=== PATIENT | female | born 1950 | race Caucasian/White ===

== ENCOUNTER 2017-11-09 12:31 | Emergency (ER) | payer MEDICARE, BC ==
[2017-11-09 13:26] VITALS: BP 142/82
--- NOTE | 2017-11-09 14:09 | UC ---
Neck Pain HPI - HPI Summary HPI Summary: patient woke this morning with pain in the right side of her neck and intermittent tingling down her hand, she is morbildly obese, forward head posture, pain along the upper trap and scalenes. denies any facila droop, one side weakness or change in speech. - History of Current Complaint Hx Obtained From: Patient, Family/Structural Design Engineer ?: No Onset/Duration Of Injury/Symptoms: Hours Mechanism Of Injury: No Known Trauma Timing: Constant - radiating painneck ache Onset/Duration: Sudden Onset, Lasting Hours Severity: Moderate Pain Intensity: 4 Character: Sharp, Aching Aggravating Factors: Position, Movement Alleviating Factors: Position, Massage Associated Signs & Symptoms: Positive: Paresthesia <Flora Gayle - Last Filed: 11/09/17 14:14> <Isabelle Urena - Last Filed: 11/09/17 14:30> - History of Current Complaint Chief Complaint: UCGeneralIllness Stated Complaint: PAIN BEHIND (R) EAR/NECK, COUGH Time Seen by Provider: 11/09/17 13:18 - Allergies/Home Medications Allergies/Adverse Reactions: Allergies Allergy/AdvReac Type Severity Reaction Status Date / Time Penicillins Allergy Hives Verified 11/09/17 13:22 piroxicam [From Feldene] Allergy Blisters Verified 11/09/17 13:22 Home Medications: Home Medications Albuterol HFA INHALER* [Ventolin HFA Inhaler*] 1 puff INH Q4H PRN 11/09/17 [ History Confirmed 11/09/17] Allopurinol TAB* [Zyloprim 100 MG TAB*] 200 mg PO DAILY 11/09/17 [History Confirmed 11/09/17] Atorvastatin* [Lipitor*] 10 mg PO DAILY 11/09/17 [History Confirmed 11/09/17] Beclomethasone 80 MCG MDI(NF) [Qvar 80 MCG MDI(NF)] 2 puff INH DAILY 11/09/17 [ History Confirmed 11/09/17] Ferrous Sulfate TAB* 325 mg PO DAILY 11/09/17 [History Confirmed 11/09/17] Furosemide TAB* [Lasix TAB*] 40 mg PO DAILY 11/09/17 [History Confirmed 11/09/17 ] Gabapentin CAP(*) [Neurontin 100 mg CAP(*)] 100 mg PO BID 11/09/17 [History Confirmed 11/09/17] Nystatin CREAM* 1 applic TOPICAL TID 11/09/17 [History Confirmed 11/09/17] Pantoprazole TAB (NF) [Protonix TAB (NF)] 40 mg PO DAILY 11/09/17 [History Confirmed 11/09/17] Potassium Chlor TAB* [Klor Con ER TAB*] 10 meq PO DAILY 11/09/17 [History Confirmed 11/09/17] Spironolactone TAB* [Aldactone TAB*] 12.5 mg PO DAILY 11/09/17 [History Confirmed 11/09/17] Tiotropium CAP.INH* [Spiriva CAP.INH*] 2 cap.inh INH DAILY 11/09/17 [History Confirmed 11/09/17] amLODIPine TAB* [Norvasc 5 mg TAB*] 5 mg PO DAILY 11/09/17 [History Confirmed ] PMH/Surg Hx/FS Hx/Imm Hx Previously Healthy: Yes - Surgical History Surgical History: Yes Surgery Procedure, Year, and Place: stents. T&A. chad. appy. L carotid [place] coil. Kidney stone blasted. 2014 bypass. mitral valve repair - Family History Known Family History: Positive: Cardiac Disease, Hypertension - Social History Alcohol Use: Occasionally Substance Use Type: None Smoking Status (MU): Former Smoker Type: Cigarettes When Did the Patient Quit Smoking/Using Tobacco: 30 years ago - Immunization History Most Recent Influenza Vaccination: 2013 Most Recent Tetanus Shot: current (2009?) Most Recent Pneumonia Vaccination: current <Flora Gayle - Last Filed: 11/09/17 14:14> Review Of Systems Constitutional: Positive: Negative Skin: Positive: Negative Eyes: Positive: Negative ENT: Positive: Negative Respiratory: Positive: Negative Cardiovascular: Positive: Negative Gastrointestinal: Positive: Negative Genitourinary: Positive: Negative Musculoskeletal: Positive: Arthralgia, Decreased ROM, Myalgia Neurological: Positive: Negative Psychological: Positive: Negative All Other Systems Reviewed And Are Negative: Yes <Flora Gayle - Last Filed: 11/09/17 14:14> Physical Exam Triage Information Reviewed: Yes Appearance: Well-Appearing, Pain Distress, Obese Vital Signs: Initial Vital Signs Temp 98 F 11/09/17 13:20 Pulse 71 11/09/17 13:20 Resp 20 04/20/18 13:20 BP 142/82 11/09/17 13:20 Pulse Ox 99 11/09/17 13:20 Vital Signs Reviewed: Yes Eye Exam: Normal ENT Exam: Normal Dental Exam: Normal Neck: Positive: Tenderness @ - right side of neck musculature Respiratory Exam: Normal Respiratory: Positive: Chest non-tender, Lungs clear, Normal breath sounds Cardiovascular Exam: Normal Cardiovascular: Positive: RRR, No Murmur, Pulses Normal Abdominal Exam: Normal Abdomen Description: Positive: Nontender, No Organomegaly, Soft Bowel Sounds: Positive: Present Musculoskeletal Exam: Normal Musculoskeletal: Positive: Strength Intact, No Edema, ROM Limited @ - in neck rot, lat flx and ext Neurological Exam: Normal Neurological: Positive: Alert Psychological Exam: Normal Skin Exam: Normal <Flora Gayle - Last Filed: 11/09/17 14:14> Vital Signs: Initial Vital Signs Temp 98 F 11/09/17 13:20 Pulse 71 11/09/17 13:20 Resp 20 11/09/17 13:20 BP 142/82 11/09/17 13:20 Pulse Ox 99 11/09/17 13:20 <Isabelle Urena - Last Filed: 11/09/17 14:30> Neck Pain Course/Dx - Course Course Of Treatment: hx obtained, exam performed ,meds reviewed, ROM assessed, treated for cervical radicuopathy - Differential Dx/Diagnosis Differential Dx/HQI/PQRI: Cervical Fracture, Sprain, Strain, Torticollis Provider Diagnoses: torticollis. cervical radicuopathy <Flora Gayle - Last Filed: 11/09/17 14:14> Discharge - Sign-Out/Discharge Documenting (check all that apply): Discharge - Billing Disposition and Condition Condition: STABLE Disposition: HOME <Flora Gayle - Last Filed: 11/09/17 14:14> - Billing Disposition and Condition Condition: STABLE Disposition: HOME <Isabelle Urena - Last Filed: 11/09/17 14:30> - Discharge Plan Condition: Stable Disposition: HOME Patient Education Materials: Cervical Radiculopathy (ED) Referrals: Lorraine Brown MD [Primary Care Provider] - Additional Instructions: 1. warm pack to the neck, use the sling to rest the muscles of the shoulder and neck 2. I recommend follow up with massage, gentle stretching, tylenol and sleep poisitioning 3. Follow up with any increased weakness or pain is not managed with this line of treatment Attestation Statement User Type: Provider - I was available for consult. This patient was seen by the MARY. The patient was not presented to, seen by, or examined by me. -Ember <Isabelle Urena - Last Filed: 11/09/17 14:30>
== END 2017-11-09 14:42 | disposition home or self-care (01) ==
LOC: UCCORT 12:31
DX: M43.6 Torticollis (principal); M54.12 Radiculopathy, cervical region; Z87.891 Personal history of nicotine dependence; Z88.0 Allergy status to penicillin; Z88.8 Allergy status to other drugs, medicaments and biological substances
CPT/HCPCS: 99212; G0463

== ENCOUNTER 2019-09-18 10:30 | Emergency (ER) | payer MEDICARE, BC ==
--- OUTSIDE RECORDS SUMMARY | 2019-09-18 10:38 | XMS REPORT | Continuity of Care Document ---
:1950 External Reference #:[id number] Author Name JOSE ALEJANDRO Kieth (transmitted by agent of provider Nancy Ceja) Address [address] [place] [address] Care Team Providers Name Role Phone Lorraine Brown MD Care Team Information Com Writer [phone] Problems Active Problems Provider Date Allergic asthma without status asthmaticus [facility] Onset: Allergic rhinitis [facility] Onset: 11/06/2013 Allergic rhinitis due to pollen [facility] Onset: 11/06/2013 Acute maxillary sinusitis [facility] Onset: 11/06/2013 Uncomplicated moderate persistent asthma Manan Farr M.D. Onset: 03/29/2017 Cough Manan Farr M.D. Onset: 05/02/2018 Social History Type Date Description Comments Sex Unknown ETOH Use Currently consumes 1 glass of wine per alcohol day Tobacco Use Start: Unknown End: Patient is a former quit 26 years ago; Unknown smoker h/o tobacco x approx 25 years (3ppd at time of quitting). Recreational Drug Use Denies Drug Use Smoking Status Reviewed: 10/25/17 Patient is a former quit 26 years ago; smoker h/o tobacco x approx 25 years (3ppd at time of quitting). Allergies, Adverse Reactions, Alerts Active Allergies Reaction Severity Comments Date Feldene blisters 10/29/2007 Penicillin Urticaria 10/29/2007 Medications Active Medications SIG Qnty Indications Ordering Date Provider Prednisone 40mg for 3 days, 31tabs J45.51 Юлия 09/09/2019 10mg Tablets 30mg for 3 days, MELL DasilvaP-C 20 mg for 3 days, 10mg for 3 days and 5mg for 2 days Azithromycin 1 by mouth x 7 7tabs J45.51 Юлия 09/09/2019 500mg days MariseldrMELL stoneP-C Tablets Aerochamber Plus for use with mdi 2units Berta Dhaliwal, 09/04/2019 [employer] GAME DESIGNER/CREATIVE DIRECTOR-C Misc Advair HFA inhale two puffs 12gm Юлия 08/13/2019 by mouth twice a MELL DasilvaP-C 230-21mcg/Act Aerosol day Ipratropium [place] use with nebulizer 75ml Юлия 08/05/2019 am&pm ISA Dasilva-C 0.02% Solution Xolair inject 225mg every 6units Юлия 08/05/2019 75mg/0.5ML Soln 2 weeks ISA Dasilva-C Prefill Syringe Azelastine HCL [place] One [place] 30units Berta Dhaliwal, 05/27/2019 (Nasal) Into Each Nostril GAME DESIGNER/CREATIVE DIRECTOR-C 137mcg/[place] Once In The Solution Morning And Once AT Night Levalbuterol HCL use via nebulizer 30ml Юлия 04/04/2019 every 4 -6 hours ISA Dasilva-C 1.25mg/3ML Nebulizer for shortness of breath, cough or wheezing Epipen 2-Elvin use as directed 2units Юлия 07/30/2018 ISA Dasilva-C 0.3mg/0.3ML Solution Auto-Inject Cetirizine HCL 1 by mouth every 30tabs Jordana Maria, 08/28/2017 10mg day GAME DESIGNER/CREATIVE DIRECTOR-C Tablets Ventolin HFA 2 inhalations q4h 1units J45.40 Manan Farr, 10/15/2014 prn coughing or M.D. 108(90Base) mcg/Act wheezing Aerosol Fluticasone two sprays in each 1units Manan Farr, 06/10/2013 Propionate nostril once daily M.D. 50mcg/Act Suspension Levothyroxine Sodium 1 tab daily. Unknown 125mcg Tablets Singulair take 1 tablet by 30tabs Юлия 10mg Tablets mouth every day JOSE ALEJANDRO Dasilva needs annual Atorvastatin Calcium 1 every day Unknown Powder Aspirin Low Dose 1 every day Unknown 81mg Chewtabs Irbesartan 1 tab every day Unknown 75mg Tablets Klor-Con M10 1 tab every day Unknown 10Meq Tablets ER Pantoprazole Sodium 1 tab daily. Unknown 40mg Tablets DR Spironolactone 1/2 tablet daily Unknown 25mg Tablets Furosemide 1 tabs every day Unknown 80mg Tablets Spiriva Respimat 2 inhalations once 1units J45.40 Юлия daily JOSE ALEJANDRO Dasilva 2.5mcg/Act Aerosol Allopurinol once a day Unknown 300mg Tablets Medications Administered in Office Medication SIG Qnty Indications Ordering Provider Date Biologic Agent ISA Keith-C 09/09/2019 Administration Injection Therapeutic, Prophylactic Or Nancy Ceja M.D. 09/09/2019 Diagnostic Injection Subq/Im Injection Biologic Agent JOSE ALEJANDRO Khan 09/04/2019 Administration Injection Biologic Agent ISA Keith-Iggy 08/19/2019 Administration Injection Therapeutic, Prophylactic Or Nancy Ceja M.D. 08/19/2019 Diagnostic Injection Subq/Im Injection Biologic Agent ISA Keith-Iggy 08/05/2019 Administration Injection Therapeutic, Prophylactic Or Nancy Ceja M.D. 08/05/2019 Diagnostic Injection Subq/Im Injection Biologic Agent ISA Keith-C 07/09/2019 Administration Injection Therapeutic, Prophylactic Or ISA Keith-C 07/09/2019 Diagnostic Injection Subq/Im Injection Biologic Agent MELL KeithP-C 06/25/2019 Administration Injection Therapeutic, Prophylactic Or Юлияmatt Dasilva GAME DESIGNER/CREATIVE DIRECTOR-C 06/25/2019 Diagnostic Injection Subq/Im Injection Biologic Agent MELL KeithP-C 06/11/2019 Administration Injection Therapeutic, Prophylactic Or Юлия Susuich, GAME DESIGNER/CREATIVE DIRECTOR-C 06/11/2019 Diagnostic Injection Subq/Im Injection Biologic Agent Юлия Uldrich, GAME DESIGNER/CREATIVE DIRECTOR-C 05/28/2019 Administration Injection Therapeutic, Prophylactic Or Юлия Uldrich, GAME DESIGNER/CREATIVE DIRECTOR-C 05/28/2019 Diagnostic Injection Subq/Im Injection Biologic Agent Юлия Uldrich, GAME DESIGNER/CREATIVE DIRECTOR-C 05/14/2019 Administration Injection Therapeutic, Prophylactic Or Юлия Uldrich, GAME DESIGNER/CREATIVE DIRECTOR-C 05/14/2019 Diagnostic Injection Subq/Im Injection Biologic Agent Юлия Uldrich, GAME DESIGNER/CREATIVE DIRECTOR-C 04/30/2019 Administration Injection Therapeutic, Prophylactic Or Юлия Uldrich, GAME DESIGNER/CREATIVE DIRECTOR-C 04/30/2019 Diagnostic Injection Subq/Im Injection Therapeutic, Prophylactic Or Юлия Uldrich, GAME DESIGNER/CREATIVE DIRECTOR-C 04/16/2019 Diagnostic Injection Subq/Im Injection Biologic Agent Юлия Uldrich, GAME DESIGNER/CREATIVE DIRECTOR-C 04/02/2019 Administration Injection Therapeutic, Prophylactic Or Юлия Uldrich, GAME DESIGNER/CREATIVE DIRECTOR-C 04/02/2019 Diagnostic Injection Subq/Im Injection Biologic Agent Юлия Uldrich, GAME DESIGNER/CREATIVE DIRECTOR-C 03/12/2019 Administration Injection Therapeutic, Prophylactic Or Юлия Uldrich, GAME DESIGNER/CREATIVE DIRECTOR-C 03/12/2019 Diagnostic Injection Subq/Im Injection Biologic Agent Юлия Uldrich, GAME DESIGNER/CREATIVE DIRECTOR-C 02/19/2019 Administration Injection Therapeutic, Prophylactic Or Юлия Uldrich, GAME DESIGNER/CREATIVE DIRECTOR-C 02/19/2019 Diagnostic Injection Subq/Im Injection Biologic Agent Юлия Uldrich, GAME DESIGNER/CREATIVE DIRECTOR-C 02/05/2019 Administration Injection Therapeutic, Prophylactic Or Юлия Uldrich, GAME DESIGNER/CREATIVE DIRECTOR-C 02/05/2019 Diagnostic Injection Subq/Im Injection Biologic Agent Юлия Uldrich, GAME DESIGNER/CREATIVE DIRECTOR-C 01/22/2019 Administration Injection Therapeutic, Prophylactic Or Юлия Uldrich, GAME DESIGNER/CREATIVE DIRECTOR-C 01/22/2019 Diagnostic Injection Subq/Im Injection Therapeutic, Prophylactic Or Юлия Uldrich, GAME DESIGNER/CREATIVE DIRECTOR-C 01/08/2019 Diagnostic Injection Subq/Im Injection Biologic Agent Юлия Uldrich, GAME DESIGNER/CREATIVE DIRECTOR-C 12/25/2018 Administration Injection Therapeutic, Prophylactic Or Nancy Ceja M.D. 12/25/2018 Diagnostic Injection Subq/Im Injection Biologic Agent Юлия Uldrich, GAME DESIGNER/CREATIVE DIRECTOR-C 12/11/2018 Administration Injection Therapeutic, Prophylactic Or Юлия Uldrich, GAME DESIGNER/CREATIVE DIRECTOR-C 12/11/2018 Diagnostic Injection Subq/Im Injection Biologic Agent Юлия Uldrich, GAME DESIGNER/CREATIVE DIRECTOR-C 11/26/2018 Administration Injection Therapeutic, Prophylactic Or Юлия Uldrich, GAME DESIGNER/CREATIVE DIRECTOR-C 11/26/2018 Diagnostic Injection Subq/Im Injection Biologic Agent Юлия Uldrich, GAME DESIGNER/CREATIVE DIRECTOR-C 11/13/2018 Administration Injection Therapeutic, Prophylactic Or Юлия Uldrich, GAME DESIGNER/CREATIVE DIRECTOR-C 11/13/2018 Diagnostic Injection Subq/Im Injection Biologic Agent Юлия Uldrich, GAME DESIGNER/CREATIVE DIRECTOR-C 10/30/2018 Administration Injection Therapeutic, Prophylactic Or Юлия Uldrich, GAME DESIGNER/CREATIVE DIRECTOR-C 10/30/2018 Diagnostic Injection Subq/Im Injection Biologic Agent Юлия Uldrich, GAME DESIGNER/CREATIVE DIRECTOR-C 10/16/2018 Administration Injection Therapeutic, Prophylactic Or Юлия Uldrich, GAME DESIGNER/CREATIVE DIRECTOR-C 10/16/2018 Diagnostic Injection Subq/Im Injection Biologic Agent Ania Eric, GAME DESIGNER/CREATIVE DIRECTOR-C 10/02/2018 Administration Injection Therapeutic, Prophylactic Or Ania Eric, GAME DESIGNER/CREATIVE DIRECTOR-C 10/02/2018 Diagnostic Injection Subq/Im Injection Biologic Agent Юлия Uldrich, GAME DESIGNER/CREATIVE DIRECTOR-C 09/18/2018 Administration Injection Therapeutic, Prophylactic Or Юлия Uldrich, GAME DESIGNER/CREATIVE DIRECTOR-C 09/18/2018 Diagnostic Injection Subq/Im Injection Biologic Agent Юлия Uldrich, GAME DESIGNER/CREATIVE DIRECTOR-C 09/04/2018 Administration Injection Therapeutic, Prophylactic Or Manan Farr M.D. 09/04/2018 Diagnostic Injection Subq/Im Injection Biologic Agent Юлия Uldrich, GAME DESIGNER/CREATIVE DIRECTOR-C 08/21/2018 Administration Injection Therapeutic, Prophylactic Or Nancy Ceja M.D. 08/21/2018 Diagnostic Injection Subq/Im Injection Biologic Agent Юлия Uldrich, GAME DESIGNER/CREATIVE DIRECTOR-C 08/07/2018 Administration Injection Therapeutic, Prophylactic Or Юлия Uldrich, GAME DESIGNER/CREATIVE DIRECTOR-C 08/07/2018 Diagnostic Injection Subq/Im Injection Celestone/Cortisone Leeanne Theejenifermichael, 10/22/2014 [id number] 1 cc PH.D, RPA-C Injection Celestone/Cortisone Leeanne Theejenifermichael, 10/13/2014 [id number] 1 cc PH.D, RPA-C Injection Injection Donovan Myrna Holliday 12/10/2012 Injection Injection Allergy Injection 12/10/2012 Injection Injection Allergy Injection 11/26/2012 Injection Injection Allergy Injection 11/12/2012 Injection Injection Donovan Myrna Holliday 10/29/2012 Injection Injection Allergy Injection 10/29/2012 Injection Injection Donovan Myrna Holliday 10/15/2012 Injection Injection Allergy Injection 10/15/2012 Injection Injection Donovan Myrna Holliday 10/01/2012 Injection Injection Donovan Myrna Holliday 09/17/2012 Injection Injection Donovan Holliday M.D. 08/20/2012 Injection Injection Donovan Holliday M.D. 07/30/2012 Injection Injection Nancy Ceja M.D. 07/09/2012 Injection Injection Nancy Ceja M.D. 06/18/2012 Injection Injection Nancy Ceja M.D. 05/28/2012 Injection Injection Nancy Ceja M.D. 05/14/2012 Injection Injection Nancy Ceja M.D. 04/23/2012 Injection Injection Nancy Ceja M.D. 04/09/2012 Injection Injection Nancy Ceja M.D. 03/26/2012 Injection Injection Nancy Ceja M.D. 03/12/2012 Injection Injection Nancy Ceja M.D. 02/27/2012 Injection Injection Nancy Ceja M.D. 02/13/2012 Injection Injection Nancy Ceja M.D. 01/30/2012 Injection Injection Nancy Ceja M.D. 01/16/2012 Injection Injection Nancy Ceja M.D. 01/02/2012 Injection Injection Nancy Ceja M.D. 12/19/2011 Injection Injection Nancy Cjea M.D. 12/05/2011 Injection Injection Nancy Ceja M.D. 11/28/2011 Injection Injection Nancy Eduardo Rustyjhoan, CarloDRickie 11/14/2011 Injection Injection Nancy Eduardo Marcial, CarloDRickie 10/31/2011 Injection Injection Nancy Eduardo Marcial, CarloDRickie 10/17/2011 Injection Injection Nancy Eduardo Rustyjhoan, CarloDRickie 10/03/2011 Injection Injection Donovan Mg, M.DRickie 09/19/2011 Injection Injection Donovan Mg, CarloDRickie 09/05/2011 Injection Injection Manan Farr, CarloDRickie 07/06/2011 Injection Injection Donovan Mg, M.DRickie 06/22/2011 Injection Injection Donovan Mg, M.DRickie 06/08/2011 Injection Injection Donovan Mg, Alesha.DRickie 05/25/2011 Injection Injection Donovan Mg, M.DRickie 05/04/2011 Injection Injection Donovan Mg, M.DRickie 04/11/2011 Injection Injection Donovan Mg, Alesha.DRickie 03/28/2011 Injection Injection Donovan Mg, M.DRickie 03/16/2011 Injection Injection Donovan Mg, M.DRickie 03/02/2011 Injection Injection Donovan Mg, M.DRickie 02/09/2011 Injection Injection Donovan Mg, M.DRickie 01/17/2011 Injection Injection Donovan Mg, M.DRickie 12/20/2010 Injection Injection Donovan Mg, M.DRickie 12/06/2010 Injection Injection Donovan Mg, M.DRickie 11/22/2010 Injection Injection Donovan Mg, M.DRickie 11/10/2010 Injection Injection Donovan Mg, M.DRickie 10/25/2010 Injection Injection Donovan Mg, M.DRickie 10/11/2010 Injection Injection Donovan Mg, M.DRickie 09/20/2010 Injection Injection Donovan Mg, M.DRickie 08/23/2010 Injection Injection Donovan Mg, M.DRickie 07/26/2010 Injection Injection Donovan Mg, M.DRickie 06/28/2010 Injection Injection Donovan Mg, M.DRickie 05/31/2010 Injection Injection Donovan Mg, M.DRickie 05/03/2010 Injection Injection Donovan Mg, M.DRickie 04/19/2010 Injection Injection Donovan Mg, M.DRickie 04/05/2010 Injection Injection Donovan Mg, M.DRickie 03/22/2010 Injection Injection Donovan Mg, M.DRickie 03/01/2010 Injection Injection Nancy M Marcial, Myrna 02/15/2010 Injection Injection Donovan Mg, M.DRickie 02/01/2010 Injection Injection Donovan Mg, M.DRickie 01/18/2010 Injection Injection Donovan Mg, M.DRickie 01/04/2010 Injection Injection Donovan Mg, M.DRickie 12/21/2009 Injection Injection Donovan Mg, M.DRickie 12/09/2009 Injection Injection Donovan Mg, M.DRickei 11/23/2009 Injection Injection Donovan Mg, M.DRickie 11/09/2009 Injection Injection Donovan Mg, CarloDRickie 10/26/2009 Injection Injection Donovan Mg, Alesha.DRickie 10/12/2009 Injection Injection Donovan Mg, M.DRickie 09/28/2009 Injection Injection Donovan Mg, M.DRickie 09/14/2009 Injection Injection Nancy Ceja M.D. 08/24/2009 Injection Injection Christopher Mares, 08/12/2009 Injection M.D. Injection Donovan Mg, M.DRickie 07/29/2009 Injection Injection Donovan Mg, CarloDRickie 07/13/2009 Injection Injection Christopher Mares, 07/01/2009 Injection M.D. Injection Donovan Mg, M.DRickie 06/15/2009 Injection Injection Donovan Mg, M.DRickie 06/01/2009 Injection Injection Donovan Mg, M.DRickie 05/18/2009 Injection Injection Donovan Mg, M.DRickie 04/29/2009 Injection Injection Donovan Mg, M.DRickie 04/15/2009 Injection Injection Donovan Mg, M.DRickie 04/01/2009 Injection Injection Donovan Mg, M.DRickie 03/18/2009 Injection Injection Donovan Mg, M.DRickie 03/04/2009 Injection Injection Donovan Mg, Alesha.DRickie 02/18/2009 Injection Injection Donovan Mg, M.DRickie 02/04/2009 Injection Injection Donovan Mg, MRickieDRickie 01/21/2009 Injection Injection Christopher Mares, 01/07/2009 Injection M.DRickie Injection Donovan Mg, M.DRickie 12/24/2008 Injection Injection Donovan Mg, Alesha.DRickie 12/10/2008 Injection Injection Donovan Mg, M.DRickie 12/03/2008 Injection Injection Donovan Mg, M.DRickie 11/24/2008 Injection Injection Donovan Mg, M.DRickie 11/19/2008 Injection Injection Donovan Mg, M.DRickie 11/12/2008 Injection Injection Donovan Mg, CarloDRickie 11/03/2008 Injection Injection Donovan Mg, CarloDRickie 10/15/2008 Injection Injection Donovan Mg, Myrna 10/01/2008 Injection Injection Donovan Mg, CarloDRickie 09/17/2008 Injection Injection Donovan Mg, M.DRickie 09/03/2008 Injection Injection Donovan Mg, M.DRickie 08/20/2008 Injection Injection Donovan Mg, Alesha.DRickie 08/06/2008 Injection Injection Donovan Mg, Myrna 07/14/2008 Injection Injection Donovan Mg, Myrna 07/02/2008 Injection Injection Donovan Mg, Myrna 06/16/2008 Injection Injection Donovan Mg, Myrna 06/11/2008 Injection Injection Donovan Mg, M.DRickie 06/04/2008 Injection Injection Donovan Mg, M.DRickie 05/28/2008 Injection Injection Donovan Mg, M.DRickie 05/21/2008 Injection Injection Donovan Mg, M.DRickie 05/14/2008 Injection Injection Donovan Mg, MRickieDRickie 05/07/2008 Injection Injection Donovan Mg, Myrna 04/30/2008 Injection Injection Donovan Mg, CarloDRickie 04/23/2008 Injection Injection Donovan Mg, MRickieDRickie 04/16/2008 Injection Injection Donovan Mg, Myrna 04/09/2008 Injection Injection Donovan MgMyrna melo 04/02/2008 Injection Injection Donovan MgMyrna melo 03/26/2008 Injection Injection Donovan MgMyrna 03/19/2008 Injection Injection Donovan MgMyrna 03/12/2008 Injection Injection Donovan MgMyrna melo 03/05/2008 Injection Injection Donovan MgMyrna melo 02/27/2008 Injection Injection Donovan Gm, Myrna 02/20/2008 Injection Injection Donovan Mg, Myrna 02/13/2008 Injection Injection Doonvan MgMyrna melo 02/04/2008 Injection Injection Donovan MgMyrna melo 01/30/2008 Injection Injection Donovan Mg, Myrna 01/23/2008 Injection Injection Donovan MgMyrna melo 01/16/2008 Injection Injection Donovan MgMyrna melo 01/09/2008 Injection Injection Donovan MgMyrna melo 01/02/2008 Injection Injection Donovan MgMyrna melo 12/26/2007 Injection Injection Donovan MgMyrna melo 12/19/2007 Injection Injection Donovan MgMyrna melo 12/12/2007 Injection Injection Donovan Mg, Myrna 12/03/2007 Injection Injection Donovan MgMyrna melo 11/26/2007 Injection Injection Donovan MgMyrna melo 11/19/2007 Injection Immunizations CPT Code Status Date Vaccine Lot # 85108 Given 04/22/2013 Influenza Vaccine 69486 Given 07/23/2010 Pneumococcal Vaccine 44091 Given Unknown Pneumococcal Vaccine 34155 Given Unknown Influenza Vaccine 33744 Given Unknown Influenza Vaccine 14670 Given Unknown Influenza Vaccine 45239 Given Unknown Influenza Vaccine 07770 Given Unknown Influenza Vaccine Vital Signs Date Vital Result Comment 09/09/2019 1:28pm Height 65 inches 5'5" Weight 241.00 lb Weight 109.318 kg Respiratory Rate 18 /min Heart Rate 89 /min O2 % BldC Oximetry 97 % BP Systolic 135 mmHg BP Diastolic 66 mmHg Asthma Control Test 14 BMI (Body Mass Index) 40.1 kg/m2 09/04/2019 11:18am Height 65 inches 5'5" Weight 241.00 lb Weight 109.318 kg Respiratory Rate 16 /min Heart Rate 87 /min O2 % BldC Oximetry 95 % BP Systolic 135 mmHg BP Diastolic 64 mmHg Asthma Control Test 10 BMI (Body Mass Index) 40.1 kg/m2 Results Description No Information Available Procedures Date Code Description Status 09/09/2019 52926 Biologic Agent Administration Completed 09/09/2019 56702 Therapeutic, Prophylactic Or Diagnostic Injection Subq/Im Completed 09/04/2019 08937 Biologic Agent Administration Completed 09/04/2019 57986 Ippb Completed 08/19/2019 41527 Biologic Agent Administration Completed 08/19/2019 36126 Therapeutic, Prophylactic Or Diagnostic Injection Subq/Im Completed 08/05/2019 01262 Biologic Agent Administration Completed 08/05/2019 27187 Therapeutic, Prophylactic Or Diagnostic Injection Subq/Im Completed 08/05/2019 29921 Ippb Completed 07/09/2019 83781 Biologic Agent Administration Completed 07/09/2019 27920 Therapeutic, Prophylactic Or Diagnostic Injection Subq/Im Completed 06/25/2019 67965 Ippb Completed 06/25/2019 75368 Therapeutic, Prophylactic Or Diagnostic Injection Subq/Im Completed 06/25/2019 08747 Biologic Agent Administration Completed 06/11/2019 26669 Biologic Agent Administration Completed 06/11/2019 08416 Therapeutic, Prophylactic Or Diagnostic Injection Subq/Im Completed 05/28/2019 00085 Biologic Agent Administration Completed 05/28/2019 80576 Therapeutic, Prophylactic Or Diagnostic Injection Subq/Im Completed 05/14/2019 37742 Biologic Agent Administration Completed 05/14/2019 80695 Therapeutic, Prophylactic Or Diagnostic Injection Subq/Im Completed 04/30/2019 07613 Biologic Agent Administration Completed 04/30/2019 21772 Therapeutic, Prophylactic Or Diagnostic Injection Subq/Im Completed 04/16/2019 14930 Therapeutic, Prophylactic Or Diagnostic Injection Subq/Im Completed 04/02/2019 34042 Biologic Agent Administration Completed 04/02/2019 23599 Therapeutic, Prophylactic Or Diagnostic Injection Subq/Im Completed 03/12/2019 65968 Biologic Agent Administration Completed 03/12/2019 83862 Therapeutic, Prophylactic Or Diagnostic Injection Subq/Im Completed Medical Devices Description No Information Available Encounters Type Date Location Provider Dx Diagnosis Office Visit 03/12/2019 [facility] Юлияmatt Dasilva, J45.50 Severe persistent 11:20a GAME DESIGNER/CREATIVE DIRECTOR-C asthma, uncomplicated J30.1 Allergic rhinitis due to pollen J45.50 Severe persistent asthma, uncomplicated J30.2 Other seasonal allergic rhinitis J30.81 Allergic rhinitis due to animal (cat) (dog) hair and dander J30.1 Allergic rhinitis due to pollen J30.2 Other seasonal allergic rhinitis J30.81 Allergic rhinitis due to animal (cat) (dog) hair and dander J30.89 Other allergic rhinitis Assessments Date Code Description Provider 09/09/2019 J45.51 Severe persistent asthma with (acute) Nancy Ceja M.D. exacerbation 09/09/2019 J45.51 Severe persistent asthma with (acute) Юлия Mariseldrich, GAME DESIGNER/CREATIVE DIRECTOR -C exacerbation 09/09/2019 J30.81 Allergic rhinitis due to animal (cat) (dog) Nancy Ceja M.D. hair and dander 09/09/2019 J30.81 Allergic rhinitis due to animal (cat) (dog) Юлия Vidya, GAME DESIGNER/CREATIVE DIRECTOR-C hair and dander 09/09/2019 J30.89 Other allergic rhinitis Nancy Ceja M.D. 09/09/2019 J30.89 Other allergic rhinitis Юлия Vidya, GAME DESIGNER/CREATIVE DIRECTOR-C 09/09/2019 J30.1 Allergic rhinitis due to pollen Nancy Ceja M.D. 09/09/2019 J30.1 Allergic rhinitis due to pollen Юлияcristian Dasilva, GAME DESIGNER/CREATIVE DIRECTOR-C 09/04/2019 J45.51 Severe persistent asthma with (acute) Nancy Ceja M.D. exacerbation 09/04/2019 J45.51 Severe persistent asthma with (acute) ISA Khan-C exacerbation 09/04/2019 J20.9 Acute bronchitis, unspecified Berta Dhaliwal GAME DESIGNER/CREATIVE DIRECTOR-C 08/19/2019 J45.50 Severe persistent asthma, uncomplicated Nancy Ceja M.D. 08/19/2019 J45.50 Severe persistent asthma, uncomplicated Nancy Ceja M.D. 08/19/2019 J45.50 Severe persistent asthma, uncomplicated Юлия Vidya, GAME DESIGNER/CREATIVE DIRECTOR-C 08/19/2019 J30.2 Other seasonal allergic rhinitis Nancy Ceja M.D. 08/19/2019 J30.2 Other seasonal allergic rhinitis Юлия Uldrich, GAME DESIGNER/CREATIVE DIRECTOR-C 08/19/2019 J30.81 Allergic rhinitis due to animal (cat) (dog) Nancy Ceja M.D. hair and dander 08/19/2019 J30.81 Allergic rhinitis due to animal (cat) (dog) Юлия Uldrich, GAME DESIGNER/CREATIVE DIRECTOR-C hair and dander 08/19/2019 J30.89 Other allergic rhinitis Nancy Ceja M.D. 08/19/2019 J30.89 Other allergic rhinitis Юлия Uldrich, GAME DESIGNER/CREATIVE DIRECTOR-C 08/19/2019 J30.1 Allergic rhinitis due to pollen Юлия Uldrich, GAME DESIGNER/CREATIVE DIRECTOR-C 08/05/2019 J45.50 Severe persistent asthma, uncomplicated Nancy Ceja M.D. 08/05/2019 J45.50 Severe persistent asthma, uncomplicated Юлия Uldrich, GAME DESIGNER/CREATIVE DIRECTOR-C 08/05/2019 J30.2 Other seasonal allergic rhinitis Nancy Ceja M.D. 08/05/2019 J30.2 Other seasonal allergic rhinitis Юлия Uldrich, GAME DESIGNER/CREATIVE DIRECTOR-C 08/05/2019 J30.81 Allergic rhinitis due to animal (cat) (dog) Nancy Ceja M.D. hair and dander 08/05/2019 J30.81 Allergic rhinitis due to animal (cat) (dog) Юлия Uldrich, GAME DESIGNER/CREATIVE DIRECTOR-C hair and dander 08/05/2019 J30.89 Other allergic rhinitis Nancy Ceja M.D. 08/05/2019 J30.89 Other allergic rhinitis Юлия Uldrich, GAME DESIGNER/CREATIVE DIRECTOR-C 08/05/2019 J30.1 Allergic rhinitis due to pollen Юлия Uldrich, GAME DESIGNER/CREATIVE DIRECTOR-C 07/09/2019 J45.50 Severe persistent asthma, uncomplicated Юлия Uldrich, GAME DESIGNER/CREATIVE DIRECTOR-C 07/09/2019 J30.2 Other seasonal allergic rhinitis Nancy Ceja M.D. 07/09/2019 J30.2 Other seasonal allergic rhinitis Юлия Uldrich, GAME DESIGNER/CREATIVE DIRECTOR-C 07/09/2019 J30.81 Allergic rhinitis due to animal (cat) (dog) Nancy Ceja M.D. hair and dander 07/09/2019 J30.81 Allergic rhinitis due to animal (cat) (dog) Юлия Uldrich, GAME DESIGNER/CREATIVE DIRECTOR-C hair and dander 07/09/2019 J30.89 Other allergic rhinitis Nancy Ceja M.D. 07/09/2019 J30.89 Other allergic rhinitis Юлия Uldrich, GAME DESIGNER/CREATIVE DIRECTOR-C 07/09/2019 J30.1 Allergic rhinitis due to pollen Nancy Ceja M.D. 07/09/2019 J30.1 Allergic rhinitis due to pollen Юлия Uldrich, GAME DESIGNER/CREATIVE DIRECTOR-C 06/25/2019 J45.50 Severe persistent asthma, uncomplicated Юлия Uldrich, GAME DESIGNER/CREATIVE DIRECTOR-C 06/25/2019 J45.50 Severe persistent asthma, uncomplicated Nancy Ceja M.D. 06/25/2019 J30.2 Other seasonal allergic rhinitis Юлия Uldrich, GAME DESIGNER/CREATIVE DIRECTOR-C 06/25/2019 J45.50 Severe persistent asthma, uncomplicated Юлия Uldrich, GAME DESIGNER/CREATIVE DIRECTOR-C 06/25/2019 J30.81 Allergic rhinitis due to animal (cat) (dog) Юлия Uldrich, GAME DESIGNER/CREATIVE DIRECTOR-C hair and dander 06/25/2019 J30.2 Other seasonal allergic rhinitis Nancy Ceja M.D. 06/25/2019 J30.89 Other allergic rhinitis Юлия Uldrich, GAME DESIGNER/CREATIVE DIRECTOR-C 06/25/2019 J30.2 Other seasonal allergic rhinitis Юлия Uldrich, GAME DESIGNER/CREATIVE DIRECTOR-C 06/25/2019 J30.81 Allergic rhinitis due to animal (cat) (dog) Nancy Ceja M.D. hair and dander 06/25/2019 J30.81 Allergic rhinitis due to animal (cat) (dog) Юлия Uldrich, GAME DESIGNER/CREATIVE DIRECTOR-C hair and dander 06/25/2019 J30.89 Other allergic rhinitis Nancy Ceja M.D. 06/25/2019 J30.89 Other allergic rhinitis Юлия Uldrich, GAME DESIGNER/CREATIVE DIRECTOR-C 06/25/2019 J30.1 Allergic rhinitis due to pollen Юлия Uldrich, GAME DESIGNER/CREATIVE DIRECTOR-C 06/11/2019 J45.50 Severe persistent asthma, uncomplicated Юлия Uldrich, GAME DESIGNER/CREATIVE DIRECTOR-C 06/11/2019 J45.50 Severe persistent asthma, uncomplicated Nancy Ceja M.D. 06/11/2019 J45.50 Severe persistent asthma, uncomplicated Юлия Uldrich, GAME DESIGNER/CREATIVE DIRECTOR-C 06/11/2019 J30.2 Other seasonal allergic rhinitis Nancy Ceja M.D. 06/11/2019 J30.2 Other seasonal allergic rhinitis Юлия Uldrich, GAME DESIGNER/CREATIVE DIRECTOR-C 06/11/2019 J30.81 Allergic rhinitis due to animal (cat) (dog) Nancy Ceja M.D. hair and dander 06/11/2019 J30.81 Allergic rhinitis due to animal (cat) (dog) Юлия Uldrich, GAME DESIGNER/CREATIVE DIRECTOR-C hair and dander 06/11/2019 J30.89 Other allergic rhinitis Nancy Ceja M.D. 06/11/2019 J30.89 Other allergic rhinitis Юлия Uldrich, GAME DESIGNER/CREATIVE DIRECTOR-C 06/11/2019 J30.1 Allergic rhinitis due to pollen Юлия Uldrich, GAME DESIGNER/CREATIVE DIRECTOR-C 05/28/2019 J45.50 Severe persistent asthma, uncomplicated Юлия Uldrich, GAME DESIGNER/CREATIVE DIRECTOR-C 05/28/2019 J45.50 Severe persistent asthma, uncomplicated Nancy Ceja M.D. 05/28/2019 J45.50 Severe persistent asthma, uncomplicated Юлия Uldrich, GAME DESIGNER/CREATIVE DIRECTOR-C 05/28/2019 J30.2 Other seasonal allergic rhinitis Nancy Ceja M.D. 05/28/2019 J30.2 Other seasonal allergic rhinitis Юлия Uldrich, GAME DESIGNER/CREATIVE DIRECTOR-C 05/28/2019 J30.81 Allergic rhinitis due to animal (cat) (dog) Nancy Ceja M.D. hair and dander 05/28/2019 J30.81 Allergic rhinitis due to animal (cat) (dog) Юлия Uldrich, GAME DESIGNER/CREATIVE DIRECTOR-C hair and dander 05/28/2019 J30.89 Other allergic rhinitis Nancy Ceja M.D. 05/28/2019 J30.89 Other allergic rhinitis Юлия Uldrich, GAME DESIGNER/CREATIVE DIRECTOR-C 05/28/2019 J30.1 Allergic rhinitis due to pollen Юлия Uldrich, GAME DESIGNER/CREATIVE DIRECTOR-C 05/14/2019 J45.50 Severe persistent asthma, uncomplicated Юлия Uldrich, GAME DESIGNER/CREATIVE DIRECTOR-C 05/14/2019 J30.2 Other seasonal allergic rhinitis Юлия Uldrich, GAME DESIGNER/CREATIVE DIRECTOR-C 05/14/2019 J30.81 Allergic rhinitis due to animal (cat) (dog) Юлия Uldrich, GAME DESIGNER/CREATIVE DIRECTOR-C hair and dander 05/14/2019 J30.89 Other allergic rhinitis Юлия Uldrich, GAME DESIGNER/CREATIVE DIRECTOR-C 05/14/2019 J30.1 Allergic rhinitis due to pollen Юлия Uldrich, GAME DESIGNER/CREATIVE DIRECTOR-C 04/30/2019 J45.50 Severe persistent asthma, uncomplicated Юлия Uldrich, GAME DESIGNER/CREATIVE DIRECTOR-C 04/30/2019 J45.50 Severe persistent asthma, uncomplicated Nancy Ceja M.D. 04/30/2019 J45.50 Severe persistent asthma, uncomplicated Юлия Uldrich, GAME DESIGNER/CREATIVE DIRECTOR-C 04/30/2019 J30.2 Other seasonal allergic rhinitis Nancy Ceaj M.D. 04/30/2019 J30.2 Other seasonal allergic rhinitis Юлия Uldrich, GAME DESIGNER/CREATIVE DIRECTOR-C 04/30/2019 J30.81 Allergic rhinitis due to animal (cat) (dog) Nancy Ceja M.D. hair and dander 04/30/2019 J30.81 Allergic rhinitis due to animal (cat) (dog) Юлия Uldrich, GAME DESIGNER/CREATIVE DIRECTOR-C hair and dander 04/30/2019 J30.89 Other allergic rhinitis Nancy Ceja M.D. 04/30/2019 J30.89 Other allergic rhinitis Юлия Uldrich, GAME DESIGNER/CREATIVE DIRECTOR-C 04/16/2019 J45.50 Severe persistent asthma, uncomplicated Юлия Uldrich, GAME DESIGNER/CREATIVE DIRECTOR-C 04/16/2019 J45.50 Severe persistent asthma, uncomplicated Nancy Ceja M.D. 04/16/2019 J45.50 Severe persistent asthma, uncomplicated Юлия Uldrich, GAME DESIGNER/CREATIVE DIRECTOR-C 04/16/2019 J30.1 Allergic rhinitis due to pollen Nancy Ceja M.D. 04/16/2019 J30.1 Allergic rhinitis due to pollen Юлия Ulich, GAME DESIGNER/CREATIVE DIRECTOR-C 04/16/2019 J30.2 Other seasonal allergic rhinitis Nancy Ceja M.D. 04/16/2019 J30.2 Other seasonal allergic rhinitis Юлия Uldrich, GAME DESIGNER/CREATIVE DIRECTOR-C 04/16/2019 J30.81 Allergic rhinitis due to animal (cat) (dog) Nancy Ceja M.D. hair and dander 04/16/2019 J30.81 Allergic rhinitis due to animal (cat) (dog) Юлия Uldrich, [facility] hair and dander 04/16/2019 J30.89 Other allergic rhinitis Юлия Uldrich, GAME DESIGNER/CREATIVE DIRECTOR-C 04/02/2019 J45.50 Severe persistent asthma, uncomplicated Юлия Uldrich, GAME DESIGNER/CREATIVE DIRECTOR-C 04/02/2019 J45.50 Severe persistent asthma, uncomplicated Nancy Ceja M.D. 04/02/2019 J45.50 Severe persistent asthma, uncomplicated Юлия Uldrich, GAME DESIGNER/CREATIVE DIRECTOR-C 04/02/2019 J30.1 Allergic rhinitis due to pollen Nancy Ceja M.D. 04/02/2019 J30.1 Allergic rhinitis due to pollen Юлия Susuich, GAME DESIGNER/CREATIVE DIRECTOR-C 04/02/2019 J30.2 Other seasonal allergic rhinitis Nancy Ceja M.D. 04/02/2019 J30.2 Other seasonal allergic rhinitis Юлия Uldrich, GAME DESIGNER/CREATIVE DIRECTOR-C 04/02/2019 J30.81 Allergic rhinitis due to animal (cat) (dog) Nancy Ceja M.D. hair and dander 04/02/2019 J30.81 Allergic rhinitis due to animal (cat) (dog) Юлия Uldrich, [facility] hair and dander 04/02/2019 J30.89 Other allergic rhinitis Nancy Ceja M.D. 04/02/2019 J30.89 Other allergic rhinitis Юлия Uldrich, GAME DESIGNER/CREATIVE DIRECTOR-C 03/12/2019 J45.50 Severe persistent asthma, uncomplicated Юлия Uldrich, GAME DESIGNER/CREATIVE DIRECTOR-C 03/12/2019 J45.50 Severe persistent asthma, uncomplicated Nancy Ceja M.D. 03/12/2019 J30.1 Allergic rhinitis due to pollen Юлия Uldrich, GAME DESIGNER/CREATIVE DIRECTOR-C 03/12/2019 J45.50 Severe persistent asthma, uncomplicated Юлия Uldrich, GAME DESIGNER/CREATIVE DIRECTOR-C 03/12/2019 J30.2 Other seasonal allergic rhinitis Юлия Uldrich, GAME DESIGNER/CREATIVE DIRECTOR-C 03/12/2019 J30.1 Allergic rhinitis due to pollen Nancy Ceja M.D. 03/12/2019 J30.81 Allergic rhinitis due to animal (cat) (dog) Юлия Uldrich, GAME DESIGNER/CREATIVE DIRECTOR-C hair and dander 03/12/2019 J30.1 Allergic rhinitis due to pollen Юиля Uldrich, GAME DESIGNER/CREATIVE DIRECTOR-C 03/12/2019 J30.2 Other seasonal allergic rhinitis Nancy Ceja M.D. 03/12/2019 J30.2 Other seasonal allergic rhinitis Юлия Uldrich, GAME DESIGNER/CREATIVE DIRECTOR-C 03/12/2019 J30.81 Allergic rhinitis due to animal (cat) (dog) Nancy Ceja M.D. hair and dander 03/12/2019 J30.81 Allergic rhinitis due to animal (cat) (dog) Юлия Mariseldrich, GAME DESIGNER/CREATIVE DIRECTOR-C hair and dander 03/12/2019 J30.89 Other allergic rhinitis Юлия Uldrich, GAME DESIGNER/CREATIVE DIRECTOR-C Plan of Treatment Future Appointment(s):10/21/2019 11:20 am - Юлия Vidya, GAME DESIGNER/CREATIVE DIRECTOR-C at [facility]10/07/2019 11:20 am - Юлия Uldrich, GAME DESIGNER/CREATIVE DIRECTOR-C at [facility]09/23/2019 11:20 am - Юлия Susuich, GAME DESIGNER/CREATIVE DIRECTOR-C at [facility] Functional Status Description No Information Available Mental Status Description No Information Available Referrals Description No Information Available
--- OUTSIDE RECORDS SUMMARY | 2019-09-18 10:38 | XMS REPORT | Continuity of Care Document ---
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 Advair HFA inhale two puffs 12gm Юлия 08/13/2019 by mouth twice a ISA Dasilva-C 230-21mcg/Act Aerosol day Ipratropium [place] use with nebulizer 75ml Юлия 08/05/2019 am&pm ISA Dasilva-C 0.02% Solution Xolair inject 225mg every 6units Юлия 08/05/2019 75mg/0.5ML Soln 2 weeks ISA Dasilva-Iggy Prefill Syringe Azelastine HCL [place] One [place] 30units Berta Dhaliwal, 05/27/2019 (Nasal) Into Each Nostril OUTSIDE SALES ACCOUNT EXECUTIVE-C 137mcg/[place] Once In The Solution Morning And Once AT Night Levalbuterol HCL use via nebulizer 30ml Юлия 04/04/2019 every 4 -6 hours ISA Dasilva-C 1.25mg/3ML Nebulizer for shortness of breath, cough or wheezing Epipen 2-Elvin use as directed 2unЮлия 07/30/2018 ISA Dasilva-C 0.3mg/0.3ML Solution Auto-Inject Cetirizine HCL 1 by mouth every 30tabs Jordana Maria, 08/28/2017 10mg day OUTSIDE SALES ACCOUNT EXECUTIVE-C Tablets Ventolin HFA 2 inhalations q4h 1units J45.40 Manan Farr, 10/15/2014 prn coughing or M.D. 108(90Base) mcg/Act wheezing Aerosol Fluticasone two sprays in each 1units Manan Farr, 06/10/2013 Propionate nostril once daily M.D. 50mcg/Act Suspension Levothyroxine Sodium 1 tab daily. Unknown 125mcg Tablets Singulair take 1 tablet by 30tabs Юлия 10mg Tablets mouth every day ISA Dasilva-Iggy needs annual Atorvastatin Calcium 1 every day [...] Qnty Indications Ordering Provider Date Biologic Agent JOSE ALEJANDRO Khan 09/04/2019 Administration Injection Biologic Agent ISA Keith-C 08/19/2019 Administration Injection Therapeutic, Prophylactic Or Nancy Ceja M.D. 08/19/2019 Diagnostic Injection Subq/Im Injection Biologic Agent ISA Keith-C 08/05/2019 Administration Injection Therapeutic, Prophylactic Or Nancy Ceja M.D. 08/05/2019 Diagnostic Injection Subq/Im Injection Biologic Agent MELL KeithP-C 07/09/2019 Administration Injection Therapeutic, Prophylactic Or Юлия ISA Dasilva-C 07/09/2019 Diagnostic Injection Subq/Im Injection Biologic Agent MELL KeithP-C 06/25/2019 Administration Injection Therapeutic, Prophylactic Or Юлия Ulbharat OUTSIDE SALES ACCOUNT EXECUTIVE-C 06/25/2019 Diagnostic Injection Subq/Im Injection Biologic Agent Юлия Vidya OUTSIDE SALES ACCOUNT EXECUTIVE-C 06/11/2019 Administration Injection Therapeutic, Prophylactic Or Юлия Ulbharat, OUTSIDE SALES ACCOUNT EXECUTIVE-C 06/11/2019 Diagnostic Injection Subq/Im Injection Biologic Agent Юлия Ulbharat, OUTSIDE SALES ACCOUNT EXECUTIVE-C 05/28/2019 Administration Injection Therapeutic, Prophylactic Or Юлия Ulbharat, OUTSIDE SALES ACCOUNT EXECUTIVE-C 05/28/2019 Diagnostic Injection Subq/Im Injection Biologic Agent Юлия Uldrich, OUTSIDE SALES ACCOUNT EXECUTIVE-C 05/14/2019 Administration Injection Therapeutic, Prophylactic Or Юлия Uldrich, OUTSIDE SALES ACCOUNT EXECUTIVE-C 05/14/2019 Diagnostic Injection Subq/Im Injection Biologic Agent Юлия Uldrich, OUTSIDE SALES ACCOUNT EXECUTIVE-C 04/30/2019 Administration Injection Therapeutic, Prophylactic Or Юлия Uldrich, OUTSIDE SALES ACCOUNT EXECUTIVE-C 04/30/2019 Diagnostic Injection Subq/Im Injection Therapeutic, Prophylactic Or Юлия Uldrich, OUTSIDE SALES ACCOUNT EXECUTIVE-C 04/16/2019 Diagnostic Injection Subq/Im Injection Biologic Agent Юлия Uldrich, OUTSIDE SALES ACCOUNT EXECUTIVE-C 04/02/2019 Administration Injection Therapeutic, Prophylactic Or Юлия Uldrich, OUTSIDE SALES ACCOUNT EXECUTIVE-C 04/02/2019 Diagnostic Injection Subq/Im Injection Biologic Agent Юлия Uldrich, OUTSIDE SALES ACCOUNT EXECUTIVE-C 03/12/2019 Administration Injection Therapeutic, Prophylactic Or Юлия Uldrich, OUTSIDE SALES ACCOUNT EXECUTIVE-C 03/12/2019 Diagnostic Injection Subq/Im Injection Biologic Agent Юлия Uldrich, OUTSIDE SALES ACCOUNT EXECUTIVE-C 02/19/2019 Administration Injection Therapeutic, Prophylactic Or Юлия Uldrich, OUTSIDE SALES ACCOUNT EXECUTIVE-C 02/19/2019 Diagnostic Injection Subq/Im Injection Biologic Agent Юлия Uldrich, OUTSIDE SALES ACCOUNT EXECUTIVE-C 02/05/2019 Administration Injection Therapeutic, Prophylactic Or Юлия Uldrich, OUTSIDE SALES ACCOUNT EXECUTIVE-C 02/05/2019 Diagnostic Injection Subq/Im Injection Biologic Agent Юлия Uldrich, OUTSIDE SALES ACCOUNT EXECUTIVE-C 01/22/2019 Administration Injection Therapeutic, Prophylactic Or Юлия Uldrich, OUTSIDE SALES ACCOUNT EXECUTIVE-C 01/22/2019 Diagnostic Injection Subq/Im Injection Therapeutic, Prophylactic Or Юлия Uldrich, OUTSIDE SALES ACCOUNT EXECUTIVE-C 01/08/2019 Diagnostic Injection Subq/Im Injection Biologic Agent Юлия Uldrich, OUTSIDE SALES ACCOUNT EXECUTIVE-C 12/25/2018 Administration Injection Therapeutic, Prophylactic Or Nancy Ceja M.D. 12/25/2018 Diagnostic Injection Subq/Im Injection Biologic Agent Юлия Uldrich, OUTSIDE SALES ACCOUNT EXECUTIVE-C 12/11/2018 Administration Injection Therapeutic, Prophylactic Or Юлия Uldrich, OUTSIDE SALES ACCOUNT EXECUTIVE-C 12/11/2018 Diagnostic Injection Subq/Im Injection Biologic Agent Юлия Uldrich, OUTSIDE SALES ACCOUNT EXECUTIVE-C 11/26/2018 Administration Injection Therapeutic, Prophylactic Or Юлия Uldrich, OUTSIDE SALES ACCOUNT EXECUTIVE-C 11/26/2018 Diagnostic Injection Subq/Im Injection Biologic Agent Юлия Uldrich, OUTSIDE SALES ACCOUNT EXECUTIVE-C 11/13/2018 Administration Injection Therapeutic, Prophylactic Or Юлия Uldrich, OUTSIDE SALES ACCOUNT EXECUTIVE-C 11/13/2018 Diagnostic Injection Subq/Im Injection Biologic Agent Юлия Uldrich, OUTSIDE SALES ACCOUNT EXECUTIVE-C 10/30/2018 Administration Injection Therapeutic, Prophylactic Or Юлия Uldrich, OUTSIDE SALES ACCOUNT EXECUTIVE-C 10/30/2018 Diagnostic Injection Subq/Im Injection Biologic Agent Юлия Uldrich, OUTSIDE SALES ACCOUNT EXECUTIVE-C 10/16/2018 Administration Injection Therapeutic, Prophylactic Or Юлия Uldrich, OUTSIDE SALES ACCOUNT EXECUTIVE-C 10/16/2018 Diagnostic Injection Subq/Im Injection Biologic Agent Ania Eric, OUTSIDE SALES ACCOUNT EXECUTIVE-C 10/02/2018 Administration Injection Therapeutic, Prophylactic Or Ania Eric, OUTSIDE SALES ACCOUNT EXECUTIVE-C 10/02/2018 Diagnostic Injection Subq/Im Injection Biologic Agent Юлия Uldrich, OUTSIDE SALES ACCOUNT EXECUTIVE-C 09/18/2018 Administration Injection Therapeutic, Prophylactic Or Юлия Uldrich, OUTSIDE SALES ACCOUNT EXECUTIVE-C 09/18/2018 Diagnostic Injection Subq/Im Injection Biologic Agent Юлия Uldrich, OUTSIDE SALES ACCOUNT EXECUTIVE-C 09/04/2018 Administration Injection Therapeutic, Prophylactic Or Manan Farr M.D. 09/04/2018 Diagnostic Injection Subq/Im Injection Biologic Agent Юлия Uldrich, OUTSIDE SALES ACCOUNT EXECUTIVE-C 08/21/2018 Administration Injection Therapeutic, Prophylactic Or Nancy Ceja M.D. 08/21/2018 Diagnostic Injection Subq/Im Injection Biologic Agent Юлия Uldrich, OUTSIDE SALES ACCOUNT EXECUTIVE-C 08/07/2018 Administration Injection Therapeutic, Prophylactic Or Юлия Uldrich, OUTSIDE SALES ACCOUNT EXECUTIVE-C 08/07/2018 Diagnostic Injection Subq/Im Injection Celestone/Cortisone Leeanne Salamanca, 10/22/2014 [id number] 1 cc PH.D, RPA-C Injection Celestone/Cortisone Leeanne Salamanca, 10/13/2014 [id number] 1 cc PH.D, RPA-C Injection Injection Donovan Mg, M.D. 12/10/2012 Injection Injection Allergy Injection 12/10/2012 Injection Injection Allergy Injection 11/26/2012 Injection Injection Allergy Injection 11/12/2012 Injection Injection Donovan Mg, Myrna 10/29/2012 Injection Injection Allergy Injection 10/29/2012 Injection Injection Donovan Carlo HollidayDRickie 10/15/2012 Injection Injection Allergy Injection 10/15/2012 Injection Injection Donovan Mg, Myrna 10/01/2012 Injection Injection Donovan Mg, CarloDRickie 09/17/2012 Injection Injection Donovan Holliday M.D. 08/20/2012 [...] Nancy Ceja M.D. 12/19/2011 Injection Injection Nancy Ceja M.D. 12/05/2011 Injection Injection Nancy Ceja M.D. 11/28/2011 Injection Injection Nancy Ceja M.D. 11/14/2011 Injection Injection Nancy Ceja M.D. 10/31/2011 Injection Injection Nancy Ceja M.D. 10/17/2011 Injection Injection Nancy Ceja M.D. 10/03/2011 Injection Injection Donovan Mg, M.DRickie 09/19/2011 Injection Injection Donovan Mg, M.DRickie 09/05/2011 Injection Injection Manandavid Farr, Myrna 07/06/2011 Injection Injection Donovan Mg, M.DRickie 06/22/2011 Injection Injection Donoavn Mg, M.DRickie 06/08/2011 Injection Injection Donovan Mg, M.DRickie 05/25/2011 Injection Injection Donovan Mg, M.DRickie 05/04/2011 Injection Injection Donovan Mg, M.DRickie 04/11/2011 Injection Injection Donovan Mg, M.DRickie 03/28/2011 Injection Injection Donovan Mg, M.DRickie 03/16/2011 [...] Mg, M.DRickie 03/01/2010 Injection Injection Nancy M Myrna Ceja 02/15/2010 Injection Injection Donovan Mg, MRickieDRickie 02/01/2010 Injection Injection Donovan Mg, M.DRickie 01/18/2010 Injection Injection Donovan Mg, M.DRickie 01/04/2010 Injection Injection Donovan Mg, M.DRickie 12/21/2009 Injection Injection Donovan Mg, M.DRickie 12/09/2009 Injection Injection Donovan Mg, M.DRickie 11/23/2009 Injection Injection Donovan Mg, M.DRickie 11/09/2009 Injection Injection Donovan Mg, M.DRickie 10/26/2009 Injection Injection Donovan Mg, M.DRickie 10/12/2009 Injection Injection Donovan Mg, M.DRickie 09/28/2009 Injection Injection Donovan Mg, M.DRickie 09/14/2009 Injection Injection Nancy Ceja M.D. 08/24/2009 Injection Injection Christopher Mares, 08/12/2009 Injection M.D. Injection Donovan Mg, M.DRickie 07/29/2009 Injection Injection Donovan Mg, M.DRickie 07/13/2009 Injection Injection Christopher Mares, 07/01/2009 Injection M.D. Injection Donovan Mg, M.DRickie 06/15/2009 Injection Injection Donovan Mg, M.DRickie 06/01/2009 Injection Injection Donovan Mg, M.DRickie 05/18/2009 Injection Injection Donovan Mg, M.DRickie 04/29/2009 Injection Injection Donovan Mg, M.DRickie 04/15/2009 Injection Injection Donovan Mg, M.DRickie 04/01/2009 Injection Injection Donovan Mg, M.DRickie 03/18/2009 Injection Injection Donovan Mg, M.DRickie 03/04/2009 Injection Injection Donovan Mg, M.DRickie 02/18/2009 Injection Injection Donovan Mg, M.DRickie 02/04/2009 Injection Injection Donovan Mg, M.DRickie 01/21/2009 Injection Injection Christopher Mares, 01/07/2009 Injection M.D. Injection Donovan Mg, MRickieDRickie 12/24/2008 Injection Injection Donovan Mg, M.DRickie 12/10/2008 Injection Injection Donovan Mg, M.DRickie 12/03/2008 Injection Injection Donovan Mg, M.DRickie 11/24/2008 Injection Injection Donovan Mg, M.DRickie 11/19/2008 Injection Injection Donovan Mg, M.DRickie 11/12/2008 Injection Injection Donovan Mg, M.DRickie 11/03/2008 Injection Injection Donovan Mg, M.DRickie 10/15/2008 Injection Injection Donovan Mg, M.DRickie 10/01/2008 Injection Injection Donovan Mg, M.DRickie 09/17/2008 Injection Injection Donovan Mg, Alesha.DRickie 09/03/2008 Injection Injection Donovan Mg, M.DRickie 08/20/2008 Injection Injection Donovan Mg, Alesha.DRickie 08/06/2008 Injection Injection Donovan Mg, Myrna 07/14/2008 Injection Injection Donovan Mg, Alesha.DRickie 07/02/2008 Injection Injection Donovan Mg, M.DRickie 06/16/2008 Injection Injection Donovan Mg, CarloDRickie 06/11/2008 Injection Injection Donovan Mg, CarloDRickie 06/04/2008 Injection Injection Donovan Mg, M.DRickie 05/28/2008 Injection Injection Donovan Mg, M.DRickie 05/21/2008 Injection Injection Donovan Mg, CarloDRickie 05/14/2008 Injection Injection Donovan Mg, Alesha.DRickie 05/07/2008 Injection Injection Donovan Mg, M.DRickie 04/30/2008 Injection Injection Donovan Mg, M.DRickie 04/23/2008 Injection Injection Donovan Mg, M.DRickie 04/16/2008 Injection Injection Donovan Mg, M.DRickie 04/09/2008 Injection Injection Donovan Mg, M.DRickie 04/02/2008 Injection Injection Donovan Mg, M.DRickie 03/26/2008 Injection Injection Donovan Mg, CarloDRickie 03/19/2008 Injection Injection Donovan Mg, MRickieDRickie 03/12/2008 Injection Injection Donovan MgMyrna melo 03/05/2008 Injection Injection Donovan MgMyrna melo 02/27/2008 Injection Injection Donovan MgMyrna melo 02/20/2008 Injection Injection Donovan Mg, Myrna 02/13/2008 Injection Injection Donovan MgMyrna melo 02/04/2008 Injection Injection Donovan MgMyrna melo 01/30/2008 Injection Injection Donovan MgMyrna melo 01/23/2008 Injection Injection Donovan Mg, Myrna 01/16/2008 Injection Injection Donovan Mg, Myrna 01/09/2008 Injection Injection Donovan Myrna Holliday 01/02/2008 Injection Injection Donovan Myrna Holliday 12/26/2007 Injection Injection Donovan Myrna Holliday 12/19/2007 Injection Injection Donovan Myrna Holliday 12/12/2007 Injection Injection Donovan Myrna Holliday 12/03/2007 Injection Injection Donovan Myrna Holliday 11/26/2007 Injection Injection Donovan Myrna Holliday 11/19/2007 Injection Immunizations CPT Code Status Date Vaccine Lot # 73019 Given 04/22/2013 Influenza Vaccine 58677 Given 07/23/2010 Pneumococcal Vaccine 03516 Given Unknown Pneumococcal Vaccine 14302 Given Unknown Influenza Vaccine 81625 Given Unknown Influenza Vaccine 82446 Given Unknown Influenza Vaccine 24120 Given Unknown Influenza Vaccine 68108 Given Unknown Influenza Vaccine Vital Signs Date Vital Result Comment 09/04/2019 11:18am Height 65 inches 5'5" Weight 241.00 lb Weight 109.318 kg Respiratory Rate 16 /min Heart Rate 87 /min O2 % BldC Oximetry 95 % BP Systolic 135 mmHg BP Diastolic 64 mmHg Asthma Control Test 10 BMI (Body Mass Index) 40.1 kg/m2 08/19/2019 11:28am Height 65 inches 5'5" Weight 241.00 lb Weight 109.318 kg Respiratory Rate 16 /min Heart Rate 88 /min O2 % BldC Oximetry 98 % BP Systolic 132 mmHg BP Diastolic 62 mmHg BMI (Body Mass Index) 40.1 kg/m2 Results Description No Information Available Procedures Date Code Description Status 09/04/2019 95315 Biologic Agent Administration Completed 08/19/2019 15937 Biologic Agent Administration Completed 08/19/2019 07079 Therapeutic, Prophylactic Or Diagnostic Injection Subq/Im Completed 08/05/2019 27768 Biologic Agent Administration Completed 08/05/2019 67712 Therapeutic, Prophylactic Or Diagnostic Injection Subq/Im Completed 08/05/2019 45754 Ippb Completed 07/09/2019 16964 Biologic Agent Administration Completed 07/09/2019 30833 Therapeutic, Prophylactic Or Diagnostic Injection Subq/Im Completed 06/25/2019 55917 Biologic Agent Administration Completed 06/25/2019 08389 Therapeutic, Prophylactic Or Diagnostic Injection Subq/Im Completed 06/25/2019 80510 Ippb Completed 06/11/2019 02601 Therapeutic, Prophylactic Or Diagnostic Injection Subq/Im Completed 06/11/2019 49114 Biologic Agent Administration Completed 05/28/2019 70352 Biologic Agent Administration Completed 05/28/2019 98700 Therapeutic, Prophylactic Or Diagnostic Injection Subq/Im Completed 05/14/2019 19969 Biologic Agent Administration Completed 05/14/2019 56232 Therapeutic, Prophylactic Or Diagnostic Injection Subq/Im Completed 04/30/2019 15900 Biologic Agent Administration Completed 04/30/2019 81907 Therapeutic, Prophylactic Or Diagnostic Injection Subq/Im Completed 04/16/2019 78279 Therapeutic, Prophylactic Or Diagnostic Injection Subq/Im Completed 04/02/2019 80481 Biologic Agent Administration Completed 04/02/2019 62814 Therapeutic, Prophylactic Or Diagnostic Injection Subq/Im Completed 03/12/2019 55575 Biologic Agent Administration Completed 03/12/2019 20245 Therapeutic, Prophylactic Or Diagnostic Injection Subq/Im Completed Medical Devices Description No Information Available Encounters Type Date Location Provider Dx Diagnosis Office Visit 03/12/2019 [facility] Юлия Dasilva, J45.50 Severe persistent 11:20a OUTSIDE SALES ACCOUNT EXECUTIVE-C asthma, uncomplicated J30.1 Allergic rhinitis due to pollen J45.50 Severe persistent asthma, uncomplicated J30.2 Other seasonal allergic rhinitis J30.81 Allergic rhinitis due to animal (cat) (dog) hair and dander J30.1 Allergic rhinitis due to pollen J30.2 Other seasonal allergic rhinitis J30.81 Allergic rhinitis due to animal (cat) (dog) hair and dander J30.89 Other allergic rhinitis Assessments Date Code Description Provider 09/04/2019 J45.51 Severe persistent asthma with (acute) ISA Khan-C exacerbation 09/04/2019 J20.9 Acute bronchitis, unspecified ISA Khan-C 08/19/2019 J45.50 Severe persistent asthma, uncomplicated Nancy Ceja M.D. 08/19/2019 J45.50 Severe persistent asthma, uncomplicated Nancy Ceja M.D. 08/19/2019 J45.50 Severe persistent asthma, uncomplicated Юлия Uldrich, OUTSIDE SALES ACCOUNT EXECUTIVE-C 08/19/2019 J30.2 Other seasonal allergic rhinitis Nancy Ceja M.D. 08/19/2019 J30.2 Other seasonal allergic rhinitis Юлия Uldrich, OUTSIDE SALES ACCOUNT EXECUTIVE-C 08/19/2019 J30.81 Allergic rhinitis due to animal (cat) (dog) Nancy Ceja M.D. hair and dander 08/19/2019 J30.81 Allergic rhinitis due to animal (cat) (dog) Юлия Uldrich, OUTSIDE SALES ACCOUNT EXECUTIVE-C hair and dander 08/19/2019 J30.89 Other allergic rhinitis Nancy Ceja M.D. 08/19/2019 J30.89 Other allergic rhinitis Юлия Uldrich, OUTSIDE SALES ACCOUNT EXECUTIVE-C 08/19/2019 J30.1 Allergic rhinitis due to pollen Юлия Uldrich, OUTSIDE SALES ACCOUNT EXECUTIVE-C 08/05/2019 J45.50 Severe persistent asthma, uncomplicated Nancy Ceja M.D. 08/05/2019 J45.50 Severe persistent asthma, uncomplicated Юлия Uldrich, OUTSIDE SALES ACCOUNT EXECUTIVE-C 08/05/2019 J30.2 Other seasonal allergic rhinitis Nancy Ceja M.D. 08/05/2019 J30.2 Other seasonal allergic rhinitis Юлия Uldrich, OUTSIDE SALES ACCOUNT EXECUTIVE-C 08/05/2019 J30.81 Allergic rhinitis due to animal (cat) (dog) Nancy Ceja M.D. hair and dander 08/05/2019 J30.81 Allergic rhinitis due to animal (cat) (dog) Юлия Uldrich, OUTSIDE SALES ACCOUNT EXECUTIVE-C hair and dander 08/05/2019 J30.89 Other allergic rhinitis Nancy Ceja M.D. 08/05/2019 J30.89 Other allergic rhinitis Юлия Uldrich, OUTSIDE SALES ACCOUNT EXECUTIVE-C 08/05/2019 J30.1 Allergic rhinitis due to pollen Юлия Uldrich, OUTSIDE SALES ACCOUNT EXECUTIVE-C 07/09/2019 J45.50 Severe persistent asthma, uncomplicated Юлия Uldrich, OUTSIDE SALES ACCOUNT EXECUTIVE-C 07/09/2019 J30.2 Other seasonal allergic rhinitis Nancy Ceja M.D. 07/09/2019 J30.2 Other seasonal allergic rhinitis Юлия Uldrich, OUTSIDE SALES ACCOUNT EXECUTIVE-C 07/09/2019 J30.81 Allergic rhinitis due to animal (cat) (dog) Nancy Ceja M.D. hair and dander 07/09/2019 J30.81 Allergic rhinitis due to animal (cat) (dog) Юлия Uldrich, OUTSIDE SALES ACCOUNT EXECUTIVE-C hair and dander 07/09/2019 J30.89 Other allergic rhinitis Nancy Ceja M.D. 07/09/2019 J30.89 Other allergic rhinitis Юлия Uldrich, OUTSIDE SALES ACCOUNT EXECUTIVE-C 07/09/2019 J30.1 Allergic rhinitis due to pollen Nancy Ceja M.D. 07/09/2019 J30.1 Allergic rhinitis due to pollen Юлия Uldrich, OUTSIDE SALES ACCOUNT EXECUTIVE-C 06/25/2019 J45.50 Severe persistent asthma, uncomplicated Юлия Uldrich, OUTSIDE SALES ACCOUNT EXECUTIVE-C 06/25/2019 J45.50 Severe persistent asthma, uncomplicated Nancy Ceja M.D. 06/25/2019 J30.2 Other seasonal allergic rhinitis Юлия Uldrich, OUTSIDE SALES ACCOUNT EXECUTIVE-C 06/25/2019 J45.50 Severe persistent asthma, uncomplicated Юлия Uldrich, OUTSIDE SALES ACCOUNT EXECUTIVE-C 06/25/2019 J30.81 Allergic rhinitis due to animal (cat) (dog) Юлия Uldrich, OUTSIDE SALES ACCOUNT EXECUTIVE-C hair and dander 06/25/2019 J30.2 Other seasonal allergic rhinitis Nancy Ceja M.D. 06/25/2019 J30.89 Other allergic rhinitis Юлия Uldrich, OUTSIDE SALES ACCOUNT EXECUTIVE-C 06/25/2019 J30.2 Other seasonal allergic rhinitis Юлия Uldrich, OUTSIDE SALES ACCOUNT EXECUTIVE-C 06/25/2019 J30.81 Allergic rhinitis due to animal (cat) (dog) Nancy Ceja M.D. hair and dander 06/25/2019 J30.81 Allergic rhinitis due to animal (cat) (dog) Юлия Uldrich, OUTSIDE SALES ACCOUNT EXECUTIVE-C hair and dander 06/25/2019 J30.89 Other allergic rhinitis Nancy Ceja M.D. 06/25/2019 J30.89 Other allergic rhinitis Юлия Uldrich, OUTSIDE SALES ACCOUNT EXECUTIVE-C 06/25/2019 J30.1 Allergic rhinitis due to pollen Юлия Uldrich, OUTSIDE SALES ACCOUNT EXECUTIVE-C 06/11/2019 J45.50 Severe persistent asthma, uncomplicated Юлия Uldrich, OUTSIDE SALES ACCOUNT EXECUTIVE-C 06/11/2019 J45.50 Severe persistent asthma, uncomplicated Nancy Ceja M.D. 06/11/2019 J45.50 Severe persistent asthma, uncomplicated Юлия Uldrich, OUTSIDE SALES ACCOUNT EXECUTIVE-C 06/11/2019 J30.2 Other seasonal allergic rhinitis Nancy Ceja M.D. 06/11/2019 J30.2 Other seasonal allergic rhinitis Юлия Uldrich, OUTSIDE SALES ACCOUNT EXECUTIVE-C 06/11/2019 J30.81 Allergic rhinitis due to animal (cat) (dog) Nancy Ceja M.D. hair and dander 06/11/2019 J30.81 Allergic rhinitis due to animal (cat) (dog) Юлия Uldrich, OUTSIDE SALES ACCOUNT EXECUTIVE-C hair and dander 06/11/2019 J30.89 Other allergic rhinitis Nancy Ceja M.D. 06/11/2019 J30.89 Other allergic rhinitis Юлия Uldrich, OUTSIDE SALES ACCOUNT EXECUTIVE-C 06/11/2019 J30.1 Allergic rhinitis due to pollen Юлия Uldrich, OUTSIDE SALES ACCOUNT EXECUTIVE-C 05/28/2019 J45.50 Severe persistent asthma, uncomplicated Юлия Uldrich, OUTSIDE SALES ACCOUNT EXECUTIVE-C 05/28/2019 J45.50 Severe persistent asthma, uncomplicated Nancy Ceja M.D. 05/28/2019 J45.50 Severe persistent asthma, uncomplicated Юлия Uldrich, OUTSIDE SALES ACCOUNT EXECUTIVE-C 05/28/2019 J30.2 Other seasonal allergic rhinitis Nancy Ceja M.D. 05/28/2019 J30.2 Other seasonal allergic rhinitis Юлия Uldrich, OUTSIDE SALES ACCOUNT EXECUTIVE-C 05/28/2019 J30.81 Allergic rhinitis due to animal (cat) (dog) Nancy Ceja M.D. hair and dander 05/28/2019 J30.81 Allergic rhinitis due to animal (cat) (dog) Юлия Uldrich, OUTSIDE SALES ACCOUNT EXECUTIVE-C hair and dander 05/28/2019 J30.89 Other allergic rhinitis Nancy Ceja M.D. 05/28/2019 J30.89 Other allergic rhinitis Юлия Uldrich, OUTSIDE SALES ACCOUNT EXECUTIVE-C 05/28/2019 J30.1 Allergic rhinitis due to pollen Юлия Uldrich, OUTSIDE SALES ACCOUNT EXECUTIVE-C 05/14/2019 J45.50 Severe persistent asthma, uncomplicated Юлия Uldrich, OUTSIDE SALES ACCOUNT EXECUTIVE-C 05/14/2019 J30.2 Other seasonal allergic rhinitis Юлия Uldrich, OUTSIDE SALES ACCOUNT EXECUTIVE-C 05/14/2019 J30.81 Allergic rhinitis due to animal (cat) (dog) Юлия Uldrich, OUTSIDE SALES ACCOUNT EXECUTIVE-C hair and dander 05/14/2019 J30.89 Other allergic rhinitis Юлия Uldrich, OUTSIDE SALES ACCOUNT EXECUTIVE-C 05/14/2019 J30.1 Allergic rhinitis due to pollen Юлия Uldrich, OUTSIDE SALES ACCOUNT EXECUTIVE-C 04/30/2019 J45.50 Severe persistent asthma, uncomplicated Юлия Uldrich, OUTSIDE SALES ACCOUNT EXECUTIVE-C 04/30/2019 J45.50 Severe persistent asthma, uncomplicated Nancy Ceja M.D. 04/30/2019 J45.50 Severe persistent asthma, uncomplicated Юлия Uldrich, OUTSIDE SALES ACCOUNT EXECUTIVE-C 04/30/2019 J30.2 Other seasonal allergic rhinitis Nancy Ceja M.D. 04/30/2019 J30.2 Other seasonal allergic rhinitis Юлия Uldrich, OUTSIDE SALES ACCOUNT EXECUTIVE-C 04/30/2019 J30.81 Allergic rhinitis due to animal (cat) (dog) Nancy Ceja M.D. hair and dander 04/30/2019 J30.81 Allergic rhinitis due to animal (cat) (dog) Юлия Uldrich, OUTSIDE SALES ACCOUNT EXECUTIVE-C hair and dander 04/30/2019 J30.89 Other allergic rhinitis Nancy Ceja M.D. 04/30/2019 J30.89 Other allergic rhinitis Юлия Uldrich, OUTSIDE SALES ACCOUNT EXECUTIVE-C 04/16/2019 J45.50 Severe persistent asthma, uncomplicated Юлия Uldrich, OUTSIDE SALES ACCOUNT EXECUTIVE-C 04/16/2019 J45.50 Severe persistent asthma, uncomplicated Nancy Ceja M.D. 04/16/2019 J45.50 Severe persistent asthma, uncomplicated Юлия Uldrich, OUTSIDE SALES ACCOUNT EXECUTIVE-C 04/16/2019 J30.1 Allergic rhinitis due to pollen Nancy Ceja M.D. 04/16/2019 J30.1 Allergic rhinitis due to pollen Юлия Uldrich, OUTSIDE SALES ACCOUNT EXECUTIVE-C 04/16/2019 J30.2 Other seasonal allergic rhinitis Nancy Ceja M.D. 04/16/2019 J30.2 Other seasonal allergic rhinitis Юлия Uldrich, OUTSIDE SALES ACCOUNT EXECUTIVE-C 04/16/2019 J30.81 Allergic rhinitis due to animal (cat) (dog) Nancy Ceja M.D. hair and dander 04/16/2019 J30.81 Allergic rhinitis due to animal (cat) (dog) Юлия Uldrich, OUTSIDE SALES ACCOUNT EXECUTIVE-C hair and dander 04/16/2019 J30.89 Other allergic rhinitis Юлия Uldrich, OUTSIDE SALES ACCOUNT EXECUTIVE-C 04/02/2019 J45.50 Severe persistent asthma, uncomplicated Юлия Uldrich, OUTSIDE SALES ACCOUNT EXECUTIVE-C 04/02/2019 J45.50 Severe persistent asthma, uncomplicated Nancy Ceja M.D. 04/02/2019 J45.50 Severe persistent asthma, uncomplicated Юлия Uldrich, OUTSIDE SALES ACCOUNT EXECUTIVE-C 04/02/2019 J30.1 Allergic rhinitis due to pollen Nancy Ceja M.D. 04/02/2019 J30.1 Allergic rhinitis due to pollen Юлия Ulich, OUTSIDE SALES ACCOUNT EXECUTIVE-C 04/02/2019 J30.2 Other seasonal allergic rhinitis Nancy Ceja M.D. 04/02/2019 J30.2 Other seasonal allergic rhinitis Юлия Uldrich, OUTSIDE SALES ACCOUNT EXECUTIVE-C 04/02/2019 J30.81 Allergic rhinitis due to animal (cat) (dog) Nancy Ceja M.D. hair and dander 04/02/2019 J30.81 Allergic rhinitis due to animal (cat) (dog) Юлия Uldrich, OUTSIDE SALES ACCOUNT EXECUTIVE-C hair and dander 04/02/2019 J30.89 Other allergic rhinitis Nancy Ceja M.D. 04/02/2019 J30.89 Other allergic rhinitis Юлия Uldrich, OUTSIDE SALES ACCOUNT EXECUTIVE-C 03/12/2019 J45.50 Severe persistent asthma, uncomplicated Юлия Uldrich, OUTSIDE SALES ACCOUNT EXECUTIVE-C 03/12/2019 J45.50 Severe persistent asthma, uncomplicated Nancy Ceja M.D. 03/12/2019 J30.1 Allergic rhinitis due to pollen Юлия Uldrich, OUTSIDE SALES ACCOUNT EXECUTIVE-C 03/12/2019 J45.50 Severe persistent asthma, uncomplicated Юлия Uldrich, OUTSIDE SALES ACCOUNT EXECUTIVE-C 03/12/2019 J30.2 Other seasonal allergic rhinitis Юлия Uldrich, OUTSIDE SALES ACCOUNT EXECUTIVE-C 03/12/2019 J30.1 Allergic rhinitis due to pollen Nancy Ceja M.D. 03/12/2019 J30.81 Allergic rhinitis due to animal (cat) (dog) Юлия Uldrich, OUTSIDE SALES ACCOUNT EXECUTIVE-C hair and dander 03/12/2019 J30.1 Allergic rhinitis due to pollen Юлия Uldrich, OUTSIDE SALES ACCOUNT EXECUTIVE-C 03/12/2019 J30.2 Other seasonal allergic rhinitis Nancy Ceja M.D. 03/12/2019 J30.2 Other seasonal allergic rhinitis Юлия Uldrich, OUTSIDE SALES ACCOUNT EXECUTIVE-C 03/12/2019 J30.81 Allergic rhinitis due to animal (cat) (dog) Nancy Ceja M.D. hair and dander 03/12/2019 J30.81 Allergic rhinitis due to animal (cat) (dog) Юлия Uldrich, OUTSIDE SALES ACCOUNT EXECUTIVE-C hair and dander 03/12/2019 J30.89 Other allergic rhinitis Юлия Uldrich, OUTSIDE SALES ACCOUNT EXECUTIVE-C Plan of Treatment Future Appointment(s):09/09/2019 1:20 pm - Юлия Dasilva, OUTSIDE SALES ACCOUNT EXECUTIVE-C at [facility]09/04/2019 - ISA Khan-[id number] Severe persistent asthma with ( acute) [id number] Acute bronchitis, unspecifiedFollow up:2019Recommendations:Will hold Xolair today Start Azithromycin 250 mg take 2 tabs today, then one tab daily x 4 days Start Prednisone 20mg take 2 tabs daily x 5 days. Take with food May choose to take 20mg twice a day Jesenia IPPB now Use Levalbuterol routinely every 4-6 hours for a week and continue all meds as prscribed: Advair HFA 230-21 mcg/Act inhale two puffs by mouth twice a day Ipratropium [place] 0.02 % use with nebulizer am&pm Xolair 75 mg/ 0.5ml inject 225mg every 2 weeks Azelastine HCL (Nasal) 137 mcg/spray spray one spray into each nostril once in the morning and once AT night LevalbuterolHCL 1.25 mg/3ml use via nebulizer every 4 -6 hours for shortness of breath, cough or wheezing Epipen 2-Elvin 0.3 mg/0.3ml use as directed Cetirizine HCL 10 mg 1 by mouth every day Ventolin HFA 108(90 Base) mcg/Act 2 inhalations q4h prn coughing or wheezing Fluticasone Propionate 50 mcg/Act two sprays in each nostril once daily Singulair 10 mg take 1 tablet by mouth every day needs annual Spiriva Respimat 2.5 mcg/Act 2 inhalations once daily Use spacer for MDI inhalers- Instruction/demonstration given Call office or go to ED if condition worsens. F/U next Sunday with Nel Cash NP Functional Status Description No Information Available Mental Status Description No Information Available Referrals Description No Information Available
--- OUTSIDE RECORDS SUMMARY | 2019-09-18 10:38 | XMS REPORT | Continuity of Care Document ---
:1950 Author Name [employer]ole [employer]itter, System Address Unavailable Unavailable , Care Team Providers Name Role Phone Stephanie BAUTISTA, Lorraine Unavailable Unavailable Bishnu Elias DO Unavailable Estella BAUTISTA, Ray Unavailable Luz BAUTISTA, Shaw Unavailable Rafia Lanza DO Unavailable Derek Huang MD Unavailable Marcial BAUTISTA, Nancy Eduardo Unavailable Celi MSN, NPC, Joy Unavailable More LRT, Bereket Unavailable Unavailable Zia FOOT ROENTGENOLOGIST, Jazmin Unavailable Unavailable Adela COOLING TOWER OPERATOR, Carroll Unavailable Unavailable Jose FOOT ROENTGENOLOGIST, Kacey Unavailable Unavailable CHANNELING MACHINE OPERATOR Preload, CHANNELING MACHINE OPERATOR Unavailable Unavailable Arya FOOT ROENTGENOLOGIST, Mitali Unavailable Unavailable Maldonado FOOT ROENTGENOLOGIST, Naila Unavailable Unavailable Unavailable Unavailable Problems ALLERGIC RHINITIS (J30.9) (477.9) Celi, MSN, NPC Joy ASTHMA (Renamed from AIRWAY HYPERREACTIVITY) (J45.909) (493.90) Celi, MSN, NPC Joy Prognosis: patient presents in follow up. hx ACOS and sleep apnea. has been stable on current therapy. still taking additional ICS, qvar at noon, with samples. spirometry is without obstruction and Feno is normal. denies any recent symptoms or exacerbations. compliant with cpap nightly and reports benefit. our impressions are unchanged. she will attempt to hold the qvar and restart if needed. continue cpap night ly. encouraged weight loss efforts. RTO 6 months and prn. plan of care approved by Dr. 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 reports increased allergy symptoms lately leading to exacerbation. has been on oral steroids x2 with improvement. didn't tolerate step down th erapy after September 2018 when she left with samples of lower doses for ICS and LAMA. remains on cpap nightly with benefit. has lost additional weight with diet change, wants to lose more. reflux has been fine. spirometry has reduced FVC and small airway disease. feno is normal. our impressions are noted. continue current therapy including cpap. avoid triggers. weight loss encouraged. she will call with problems. RTO 6 months with tests and prn. plan of care approved by Dr. Bishnu Elias as of 31-Mar-2019 CHRONIC KIDNEY DISEASE (N18.9) (585.9) ROMELIA Alatorre NPC Jillian CORONARY HEART DISEASE (I25.10) (414.9) ROMELIA Alatorre NPC Jillian DM (DIABETES MELLITUS), TYPE 2 (E11.9) (250.00) ROMELIA Alatorre NPC Jillian GASTROESOPHAGEAL REFLUX DISEASE (K21.9) (530.81) ROMELIA Alatorre NPC Jillian HEART MURMUR (R01.1) (785.2) ROMELIA Alatorre NPC Jillian HYPERLIPIDEMIA (Renamed from HLD (HYPERLIPIDEMIA)) (E78.5) (272.4) ROMELIA Alatorre NPC Jillian HYPERTENSION (I10) (401.9) ROMELIA Alatorre NPC Jillian OBESITY (Renamed from OBESE) (E66.9) (278.00) ROMELIA Alatorre NPC Jillian OBSTRUCTIVE SLEEP APNEA (G47.33) (327.23) ROMELIA Alatorre NPC Jillian Comments : severe AHI 49/hr, LS 73% PLEURAL EFFUSION, LEFT (J90) (511.9) Onset: Mar-2014 Comments: after CABG, ROMELIA Alatorre NPC Jillian s/p TAP Allergies and Adverse Reactions Feldene *ANALGESICS - ANTI-INFLAMMATORY* (Allergy) Comments: BLISTERS Latex (Allergy) Penicillins (Allergy) Reaction: Rash Medications Albuterol Sulfate (2.5 MG/3ML) 0.083% Inhalation Nebulization Solution; 1 (one ) Nebulized Soln four times daily, as needed for 30 days Ordered: 08-May-2017 Start: 08-May-2017 Quantity: 2 {Box} ROMELIA Alatorre, TRAE Hamilton Comments: Medication taken as needed. Refills: 2 ALLOPURINOL, 100MG (Oral Tablet); 2 daily (100 MG) Astelin 137 MCG/SPRAY Nasal Solution; 1 each nare two times daily (137 MCG/SPRAY) ATORVASTATIN CALCIUM, 10MG (Oral Tablet); 1 daily (10 MG) AVAPRO, 75MG (Oral Tablet); 1 daily (75 MG) Dulera 200-5 MCG/ACT Inhalation Aerosol; 2 Puff two times daily for 30 days Ordered: 31-Mar-2019 Start: 31-Mar-2019 Quantity: 1 {Inhaler} ROMELIA Alatorre NPC Jillian Refills: 11 FLONASE, 50MCG/ACT (Nasal Suspension); 1 (one) Shannon two times daily, each nostril for 30 days Ordered: 30-Dec-2015 Start: 30-Dec-2015 Quantity: 1 {Shannon} ROMELIA Alatorre NPC Jillian Refills: 11 KLOR-CON 10, 10MEQ (Oral Tablet Extended Release); 1 daily (10 MEQ) Lasix 80 MG Oral Tablet; 1 two times daily (80 MG) Levothyroxine Sodium 125 MCG Oral Capsule; 1 daily (125 MCG) PANTOPRAZOLE SODIUM, 40MG (Oral Tablet Delayed Release); 1 two times daily (40 MG) Singulair 10 MG Oral Tablet; 1 Tablet daily for 90 days Ordered: 14-Aug-2018 Start: 14-Aug-2018 Quantity: 90 {Tablet} ROMELIA Alatorre NPC Jillian Refills: 3 SPIRIVA RESPIMAT, 2.5mcg (Inhalation Aerosol Breath Activated) (Free Text); 2 Puff daily for 30 days Ordered: 20-Sep-2018 Start: 20-Sep-2018 Quantity: 1 {Inhaler} ROMELIA Alatorre NPC Jillian Refills: 11 Spironolactone 25 MG Oral Tablet; 1 daily (25 MG) Ventolin HFA 108 (90 Base) MCG/ACT Inhalation Aerosol Solution; 2 (two) Puff four times daily as needed for 30 days Ordered: 05-Feb-2018 Start: 05-Feb-2018 Quantity: 1 {Inhaler} ROMELIA Alatorre NPC Jillian Comments: Medication taken as needed. Refills: 5 Xolair 150 MG Subcutaneous Comments: asthma & allergy Solution Reconstituted; every assoc two weeks (150 MG) Xyzal 5 MG Oral Tablet; 1 (one) Tablet daily for 30 days Ordered: 2016 Start: 15-Jan-2017 Quantity: 30 {Tablet} ROMELAI Alatorre NPC Jillian Refills: 11 ALENDRONATE SODIUM, 70MG (Oral End: 17-Oct-2011 Tablet); weekly (70 MG) Status: Inactive ALVESCO, 160MCG/ACT (Inhalation Aerosol Solution); 2 (two) Puff(s) Puff(s) two times daily for 30 days Ordered: 27-Apr-2014 Start: 19-Dec-2013 End: 2013 Quantity: 1 {Inhaler} ROMELIA Alatorre NPC Jillian Status: Inactive Refills: 3 AMLODIPINE BESYLATE, 5MG (Oral Status: Inactive Tablet); 1 daily (5 MG) Astepro 0.15 % Nasal Solution; 1 Solution daily for 30 days Ordered: 2016 Start: 30-Dec-2015 End: 20-Apr-2017 Quantity: 1 {Shannon} ROMELIA Alatorre NPC Jillian Status: Inactive Refills: 11 Dispense as Written CARVEDILOL, 6.25MG (Oral Status: Inactive Tablet); Daily (6.25 MG) CPAP ( Device) (Free Text); at End: 17-Oct-2011 bedtime Status: Inactive Comments: +17 CPAP PRESSURE CHANGE (327.23) ( Device) (Free Text); 1 Device change pressure to +14 cm for 0 days Ordered: 22-Apr-2013 Start: 17-Oct-2011 End: 22-Apr-2013 Quantity: 1 {Device} ROMELIA Alatorre NPC Jillian Status: Inactive Refills: 0 CPAP SUPPLIES AND MASK (327.23) ( Device) (Free Text); 1 Device as needed for 365 days Ordered: 18-Apr-2012 Start: 18-Apr-2012 End: 18-Apr-2013 Refills: 0 ROMELIA Alatorre, NPC Joy Status: Inactive Comments: Medication taken as needed. CPAP UNIT (327.23) ( Device) Status: Inactive (Free Text); auto-titating Comments: sona unit at bedtime Gabapentin 100 MG Oral Capsule; Status: Inactive 1 two times daily (100 MG) LEVOCETIRIZINE DIHYDROCHLORIDE, Status: Inactive 5MG (Oral Tablet); 1 daily (5 MG) METFORMIN HCL, 850MG (Oral Status: Inactive Tablet); two times daily (850 MG) NASONEX, 50MCG/ACT (Nasal Status: Inactive Suspension); daily (50 MCG/ACT) NEXIUM, 40MG (Oral Capsule Status: Inactive Delayed Release); daily (40 MG) PATADAY, 0.2% (Ophthalmic Status: Inactive Solution); UAD (0.2 %) PATANOL, 0.1% (Ophthalmic End: 17-Oct-2011 Solution); as needed (0.1 %) Status: Inactive Comments: Medication taken as needed. PLAVIX, 75MG (Oral Tablet); Status: Inactive Daily (75 MG) Qvar 80 MCG/ACT Inhalation End: 05-Feb-2018 Aerosol Solution; 2 daily (80 Status: Inactive MCG/ACT) VITAMIN D (ERGOCALCIFEROL), End: 17-Oct-2011 [id number] (Oral Capsule); Status: Inactive weekly (48955 UNIT) ZETIA, 10MG (Oral Tablet); Status: Inactive daily (10 MG) ALENDRONATE SODIUM, 35MG (Oral End: 22-Apr-2013 Tablet); weekly (35 MG) Status: Discontinued ALVESCO, 160MCG/ACT (Inhalation End: 17-Oct-2011 Aerosol Solution); 2 puffs two Status: Discontinued times daily (160 MCG/ACT) HYDROCHLOROTHIAZIDE, 12.5MG End: 20-Jan-2014 (Oral Capsule); 2 daily (12.5 Status: Discontinued MG) NASONEX, 50MCG/ACT (Nasal End: 19-Dec-2013 Suspension); 2 sprays each Status: Discontinued nostril daily (50 MCG/ACT) OMEPRAZOLE, 20MG (Oral Capsule End: 17-Oct-2011 Delayed Release); daily (20 Status: Discontinued MG) PROVENTIL HFA, 108 (90 Base)MCG/ACT (Inhalation Aerosol Solution); 2 (two) Puff(s) four times daily, as needed for 0 days Ordered: 20-Jan-2014 Start: Apr-2013 End: 20-Jan-2014 Quantity: 1 {Inhaler(s)} SHARMILA Garcia Status: Discontinued Refills: 1 Comments: Medication taken as needed. SEREVENT DISKUS, 50MCG/DOSE End: 17-Oct-2011 (Inhalation Aerosol Powder Status: Discontinued Breath Activated); two times daily (50 MCG/DOSE) Procedures EXHALED GAS NITRIC OXIDE MEASUREMENT Status: Completed 31-Mar-2019 (MOLES/VOLUME) (85773) EXHALED GAS NITRIC OXIDE MEASUREMENT Status: Completed 20-Sep-2018 (MOLES/VOLUME) (33799) RESPIRATORY FLOW VOLUME LOOP (36437) Status: Completed 05-Feb-2018 AIRFLOW RESISTANCE MEASUREMENT: PULM FUNCT Status: Completed 31-Jul-2017 TEST OSCILLOMETRY (03347) TOTAL VITAL CAPACITY (90259) Status: Completed 31-Jul-2017 TOTAL BODY PLETHYSMOGRAPHY: AIRWAY CLOSING Status: Completed 31-Jul-2017 VOLUME MEASUREMENT: PULM FUNCT TST PLETHYSMOGRAP (81150) RESPIRATORY FLOW VOLUME LOOP (19876) Status: Completed 31-Jul-2017 THORACIC GAS VOLUME: AIRWAY CLOSING VOLUME Status: Completed 31-Jul-2017 MEASUREMENT: PULM FUNCTION TEST BY GAS (39758) DLCO (CARBON MONOXIDE DIFFUSING CAPACITY) Status: Completed 31-Jul-2017 (45529) PRE AND POST (73191) Status: Completed 31-Jul-2017 REST/ EXERCISE OXIMETRY (13108) Status: Completed 06-Jun-2017 RESPIRATORY FLOW VOLUME LOOP (76476) Status: Completed 06-Jun-2017 TOTAL VITAL CAPACITY (53531) Status: Completed 20-Apr-2017 TOTAL BODY PLETHYSMOGRAPHY (84262) Status: Completed 20-Apr-2017 TGV THORACIC GAS VOLUME: AIRWAY CLOSING Status: Completed 20-Apr-2017 VOLUME MEASUREMENT: PULM FUNCTION TEST BY GAS (43301) RESPIRATORY FLOW VOLUME LOOP (78200) Status: Completed 20-Apr-2017 DLCO (CARBON MONOXIDE DIFFUSING CAPACITY) Status: Completed 20-Apr-2017 (85162) AIRFLOW RESISTANCE MEASUREMENT: PULM FUNCT Status: Completed 20-Apr-2017 TEST OSCILLOMETRY (24452) PRE AND POST (27610) Status: Completed 20-Apr-2017 RESPIRATORY FLOW VOLUME LOOP (39447) Status: Completed 05-Jul-2016 PRE AND POST (51769) Status: Completed 05-Jul-2016 AIRFLOW RESISTANCE MEASUREMENT: PULM FUNCT Status: Completed 30-Dec-2015 TEST OSCILLOMETRY (96897) TOTAL VITAL CAPACITY (54322) Status: Completed 30-Dec-2015 TOTAL BODY PLETHYSMOGRAPHY: AIRWAY CLOSING Status: Completed 30-Dec-2015 VOLUME MEASUREMENT: PULM FUNCT TST PLETHYSMOGRAP (07937) RESPIRATORY FLOW VOLUME LOOP (40240) Status: Completed 30-Dec-2015 THORACIC GAS VOLUME: AIRWAY CLOSING VOLUME Status: Completed 30-Dec-2015 MEASUREMENT: PULM FUNCTION TEST BY GAS (48036) DLCO (CARBON MONOXIDE DIFFUSING CAPACITY) Status: Completed 30-Dec-2015 (42057) PRE AND POST (02307) Status: Completed 30-Dec-2015 SIMPLE PFT: BASELINE PULMONARY FUNCTION Status: Completed 28-May-2015 TEST (PFT) (57432) RESPIRATORY FLOW VOLUME LOOP (99393) Status: Completed 28-May-2015 RESPIRATORY FLOW VOLUME LOOP (75424) Status: Completed 27-Oct-2014 PRE AND POST W/ RT (88673) Status: Completed 27-Oct-2014 RESPIRATORY FLOW VOLUME LOOP (18104) Status: Completed 27-Apr-2014 PRE AND POST (51624) Status: Completed 27-Apr-2014 REST/EXERCISE OXIMETRY (21966) Status: Completed 19-Dec-2013 ACT: ASSESSMENT OF DISEASE: ASTHMA Status: Cancelled 19-Dec-2013 SYMPTOMS EVALUATE (1005F) RESPIRATORY FLOW VOLUME LOOP (34340) Status: Completed 19-Dec-2013 PRE AND POST (03064) Status: Completed 19-Dec-2013 PRE AND POST (83916) Status: Completed 18-Apr-2012 EXERCISE OXIMETRY (56729) Status: Completed 18-Apr-2012 RESPIRATORY FLOW VOLUME LOOP (66242) Status: Completed 18-Apr-2012 Adenoidectomy Status: Completed 1954 Appendectomy Status: Completed 1980 Cardiac Pacemaker Insertion Status: Completed Jun-2015 Chest X-ray Status: Completed 20-Apr-2017 Comments: no obvious acute disease, official interpretation and comparison from the radiologist is pending. Chest X-ray Status: Completed 30-Dec-2015 Comments: pacemaker present. no obvious acute disease, official interpretation and comparison from the radiologist is pending. Chest X-ray Status: Completed 06-Jun-2017 Comments: hyperinflation, possible interstitial edema Cholecystectomy Status: Completed 1980 Coronary Artery Bypass, Three Status: Completed 19-Apr-2015 CPAP Status: Completed 13-Jun-2010 Comments: +[address] Scan of Chest Status: Completed 31-Jul-2017 Comments: Abnormal. Emphysematous changes. FeNO Status: Completed 31-Mar-2019 Comments: 15 ppb FeNO Status: Completed 20-Sep-2018 Comments: 8 PPB FeNO Status: Completed 31-Jul-2017 Comments: Normal. 5 FeNO Status: Completed 05-Feb-2018 Comments: Normal. 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 PFT Status: Completed 20-Sep-2018 Comments: reduced FVC 66%. FEV1 74%. ratio 85 PFT Status: Completed 05-Jul-2016 Comments: Abnormal. Minimal Obstruction. Vital capacity 70%. PFT Status: Completed 17-Oct-2011 Comments: small airway obstruction, FEV1 1.97 L, 83%. improved from 03/2011 PFT Status: Completed 31-Mar-2019 Comments: reduced FVC with small airway disease PFT Status: Completed 05-Feb-2018 Comments: reduced FVC, no obstruction PFT Status: Completed 20-Apr-2017 Comments: No Obstruction. No Restriction. Moderate Diffusion Defect. reduced FVC 67% without obstruction. ratio 79. normal TLC. moderate DLCO defect PFT Status: Completed 06-Jun-2017 Comments: reduced FVC 67%, ratio 80 PFT Status: Completed 31-Jul-2017 Comments: Abnormal. Hyperreactive small airways with normal lung volumes and moderate diffusion defect. PFT Status: Completed 18-Apr-2011 Comments: Mild Obstruction. improved from 12/12/2010 PFT Status: Completed 18-Apr-2012 Comments: Mild Obstruction. FEV1 1.82 L, 71% PFT Status: Completed 16-Oct-2012 Comments: Minimal Obstruction. FEV1 2.04 L, 87%. improved from 03/2012 PFT Status: Completed 22-Apr-2013 Comments: Mild Obstruction. FEV1 1.95 L, 84%. stable PFT Status: Completed 19-Dec-2013 Comments: Moderate Obstruction. FEV1 1.67 L, 66%. declined from prior. ACT 18 PFT Status: Completed 20-Jan-2014 Comments: Mild Obstruction. FEV1 1.84 L, 79%. improved from november 2013 PFT Status: Completed 27-Apr-2014 Comments: Mild Obstruction. FEV1 1.77 L, 70% PFT Status: Completed 28-May-2015 Comments: Mild Obstruction. FEV1 1.79 L, 72%. ACT 25 PFT Status: Completed 30-Dec-2015 Comments: Minimal Obstruction. No Restriction. Mild Diffusion Defect. FEV1 1.93, 78%. TLC 94, DLCO 73 PFT Status: Completed 27-Oct-2014 Comments: Mild Obstruction. FEV1 1.83 L, 73%. ACT 8 Polysomnography Status: Completed 18-May-2010 Comments: severe AHI 49/hr, LS 73% Stent placement Status: Completed Comments: coronary artery X2 Tonsillectomy Status: Completed 1954 PRE AND POST (10260)Result: Hemoptysis: No Status: Completed 31-Mar-2019 PRE AND POST (31242)Result: Hemoptysis: No Status: Completed 20-Sep-2018 PRE AND POST (11953)Result: Hemoptysis: No Status: Completed 05-Feb-2018 CT THORAX W/O DYE (86324)Result: Are you or Status: Completed 2017 could you become ?: No; When was you last CXR/CT?: over week ago; Explosives Operator: FLAKO Gallardo PRE AND POST (16932)Result: Hemoptysis: No Status: Completed 06-Jun-2017 CHEST X-RAY, PA AND LATERAL (98994)Result: Are you Status: Completed 2016 or could you become ?: No; When was you last CXR/CT?: over week ago; Explosives Operator: FLAKO Gallardo CHEST X-RAY, PA AND LATERAL (44407)Result: Are you Status: Completed 2015 or could you become ?: No; When was you last CXR/CT?: OVER WEEK AGO; Explosives Operator: FLAKO Gallardo ACT: ASSESSMENT OF DISEASE: ASTHMA SYMPTOMS EVALUATE Status: Completed 2014 (1005F)Result: [Questions] In the past 4 weeks, how much of the time did your asthma keep you from getting as much done at work, school, or home?: 5; During the past 4 weeks, how often have you had shortness of breath?: 5; During the past 4 weeks, how often did your asthma symptoms (wheezing, coughing, shortness of breath, chest tightness, or pain) wake you up at night or earlier than usual in the morning?: 5; During the past 4 weeks, how often have you used your rescue inhaler or nebulizer medication (such as albuterol)?: 5; How would you rate your asthma control during the past 4 weeks?: 5 [Total ACT Score] Score: 25 ACT: ASSESSMENT OF DISEASE: ASTHMA SYMPTOMS EVALUATE Status: Completed 2014 (1005F)Result: [Questions] In the past 4 weeks, how much of the time did your asthma keep you from getting as much done at work, school, or home?: 2; During the past 4 weeks, how often have you had shortness of breath?: 1; During the past 4 weeks, how often did your asthma symptoms (wheezing, coughing, shortness of breath, chest tightness, or pain) wake you up at night or earlier than usual in the morning?: 1; During the past 4 weeks, how often have you used your rescue inhaler or nebulizer medication (such as albuterol)?: 1; How would you rate your asthma control during the past 4 weeks?: 3 [Total ACT Score] Score: 8 ACT: ASSESSMENT OF DISEASE: ASTHMA SYMPTOMS EVALUATE Date: 27-Apr-2014 (1005F)Result: [Questions] In the past 4 weeks, how much of the time did your asthma keep you from getting as much done at work, school, or home?: 5; During the past 4 weeks, how often have you had shortness of breath?: 4; During the past 4 weeks, how often did your asthma symptoms (wheezing, coughing, shortness of breath, chest tightness, or pain) wake you up at night or earlier than usual in the morning?: 5; During the past 4 weeks, how often have you used your rescue inhaler or nebulizer medication (such as albuterol)?: 4; How would you rate your asthma control during the past 4 weeks?: 4 ACT: ASSESSMENT OF DISEASE: ASTHMA SYMPTOMS EVALUATE Status: Completed 2013 (1005F)Result: [Questions] In the past 4 weeks, how much of the time did your asthma keep you from getting as much done at work, school, or home?: 5; During the past 4 weeks, how often have you had shortness of breath?: 4; During the past 4 weeks, how often did your asthma symptoms (wheezing, coughing, shortness of breath, chest tightness, or pain) wake you up at night or earlier than usual in the morning?: 5; During the past 4 weeks, how often have you used your rescue inhaler or nebulizer medication (such as albuterol)?: 3; How would you rate your asthma control during the past 4 weeks?: 4 [Total ACT Score] Score: 17 ACT: ASSESSMENT OF DISEASE: ASTHMA SYMPTOMS EVALUATE Status: Completed (1005F)Result: [Questions] In the past 4 weeks, how much of the time did your asthma keep you from getting as much done at work, school, or home?: 4; During the past 4 weeks, how often have you had shortness of breath?: 3; During the past 4 weeks, how often did your asthma symptoms (wheezing, coughing, shortness of breath, chest tightness, or pain) wake you up at night or earlier than usual in the morning?: 5; During the past 4 weeks, how often have you used your rescue inhaler or nebulizer medication (such as albuterol)?: 3; How would you rate your asthma control during the past 4 weeks?: 3 [Total ACT Score] Score: 18 ACT: ASSESSMENT OF DISEASE: ASTHMA SYMPTOMS EVALUATE Date: 16-Oct-2012 (1005F)Result: [Questions] In the past 4 weeks, how much of the time did your asthma keep you from getting as much done at work, school, or home?: 5; During the past 4 weeks, how often have you had shortness of breath?: 5; During the past 4 weeks, how often did your asthma symptoms (wheezing, coughing, shortness of breath, chest tightness, or pain) wake you up at night or earlier than usual in the morning?: 5; During the past 4 weeks, how often have you used your rescue inhaler or nebulizer medication (such as albuterol)?: 5; How would you rate your asthma control during the past 4 weeks?: 5 [Total ACT Score] Score: 25 RESPIRATORY FLOW VOLUME LOOP (94368)Result: Date: 18-Apr-2011 Hemoptysis: No; Medication Used: Albuterol 0.083% nate aerosol; Distribution Operation Supervisor: Carroll Chapman RRT Immunizations Influenza (3 years and up) On: May-2011 Influenza (3 years and up) On: May-2012 Influenza (3 years and up) On: May-2013 Influenza (3 years and up) On: 13-Apr-2014 Influenza (3 years and up) On: 22-Apr-2015 Comments:date approximate Influenza (3 years and up) On: Mar-2016 Influenza (3 years and up) On: 18-Apr-2017 Comments:pharmacy Family History COPD Status: Active Comments: Sister. Sleep Apnea Status: Active Comments: Mother. Father. Social History Alcohol use: Occasional alcohol use. Caffeine use Comments: rarely Marital status: . 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 Tobacco use: Former smoker. Comments: max 3 ppd; 13-38 Former smoker Female Plan of Treatment AIRFLOW RESISTANCE MEASUREMENT: Start: 29-Sep-2019 Intent PULM FUNCT TEST OSCILLOMETRY (49966) CXR PA & LAT (05448) Start: 29-Sep-2019 Intent DLCO (CARBON MONOXIDE DIFFUSING Start: 29-Sep-2019 Intent CAPACITY) (75803) EXHALED GAS NITRIC OXIDE Start: 29-Sep-2019 Intent MEASUREMENT (MOLES/VOLUME) (49703) PRE AND POST (17226) Start: 29-Sep-2019 Intent THORACIC GAS VOLUME: AIRWAY CLOSING Start: 29-Sep-2019 Intent VOLUME MEASUREMENT: PULM FUNCTION TEST BY GAS (30337) TOTAL VITAL CAPACITY (18831) Start: 29-Sep-2019 Intent EXHALED NITRIC OXIDE MEASUREMENT Start: 05-Feb-2018 Intent (26050) Comments: Evaluated patient's nitric oxide. The results were 14 ppb REST OXIMETRY (19883) Start: 31-Jul-2017 Intent EXHALED NITRIC OXIDE MEASUREMENT Start: 31-Jul-2017 Intent (66343) Comments: next visit EXHALED NITRIC OXIDE MEASUREMENT Start: 31-Jul-2017 Intent (39348) Comments: Evaluated patient's nitric oxide. The results were 5 ppb. REST OXIMETRY (20716) Start: 05-Jul-2016 Intent ACT: ASSESSMENT OF DISEASE: ASTHMA Start: 05-Jul-2016 Intent SYMPTOMS EVALUATE (1005F) RESPIRATORY FLOW VOLUME LOOP Start: 20-Jan-2014 Intent (87676) PRE AND POST (72441) Start: 20-Jan-2014 Intent RESPIRATORY FLOW VOLUME LOOP Start: 22-Apr-2013 Intent (38334) PRE AND POST (71933) Start: 22-Apr-2013 Intent RESPIRATORY FLOW VOLUME LOOP Start: 16-Oct-2012 Intent (09649) REST OXIMETRY (53558) Start: 16-Oct-2012 Intent PRE AND POST (51723) Start: 16-Oct-2012 Intent REST/EXERCISE OXIMETRY (15875) Start: 17-Oct-2011 Intent RESPIRATORY FLOW VOLUME LOOP Start: 17-Oct-2011 Intent (07947) Pre/Post (26881) Start: 17-Oct-2011 Intent Pre/Post (32723) Start: 18-Apr-2011 Intent ASTHMA-COPD OVERLAP SYNDROME : FU EITHER - Dr. Bishnu Elias patient Indication:ASTHMA-COPD OVERLAP SYNDROME OBESITY (Renamed from OBESE) : Weight loss encouraged Indication:OBESITY (Renamed from OBESE) GASTROESOPHAGEAL REFLUX DISEASE : Avoid triggers Indication:GASTROESOPHAGEAL REFLUX DISEASE ASTHMA-COPD OVERLAP SYNDROME : FU EITHER - Dr. Bishnu Elias patient Indication:ASTHMA-COPD OVERLAP SYNDROME OBESITY (Renamed from OBESE) : Weight loss encouraged Indication:OBESITY (Renamed from OBESE) GASTROESOPHAGEAL REFLUX DISEASE : Avoid triggers Indication:GASTROESOPHAGEAL REFLUX DISEASE ASTHMA (Renamed from AIRWAY HYPERREACTIVITY) : FU EITHER - Dr. Bishnu Elias patient Indication:ASTHMA (Renamed from AIRWAY HYPERREACTIVITY) OBESITY (Renamed from OBESE) : Weight loss encouraged Indication:OBESITY (Renamed from OBESE) ASTHMA (Renamed from AIRWAY HYPERREACTIVITY) : FU - Dr. Bishnu Elias patient Indication:ASTHMA (Renamed from AIRWAY HYPERREACTIVITY) ASTHMA (Renamed from AIRWAY HYPERREACTIVITY) : Change Qvar dosing- box toe maker wanted 2 puffs mid day Indication:ASTHMA (Renamed from AIRWAY HYPERREACTIVITY) GASTROESOPHAGEAL REFLUX DISEASE : Avoid triggers Indication:GASTROESOPHAGEAL REFLUX DISEASE OBESITY (Renamed from OBESE) : Weight loss may help Indication:OBESITY (Renamed from OBESE) ASTHMA (Renamed from AIRWAY HYPERREACTIVITY) : Follow up at [facility] Indication:ASTHMA (Renamed from AIRWAY HYPERREACTIVITY) ASTHMA (Renamed from AIRWAY HYPERREACTIVITY) : FU EITHER - Dr. Bishnu Elias patient Indication:ASTHMA (Renamed from AIRWAY HYPERREACTIVITY) OBESITY (Renamed from OBESE) : Weight loss may help Indication:OBESITY (Renamed from OBESE) GASTROESOPHAGEAL REFLUX DISEASE : Avoid triggers Indication:GASTROESOPHAGEAL REFLUX DISEASE ASTHMA (Renamed from AIRWAY HYPERREACTIVITY) : EBENEZER - Dr. Bishnu Elias Indication:ASTHMA (Renamed from AIRWAY HYPERREACTIVITY) OBSTRUCTIVE SLEEP APNEA : Use cpap nightly Indication:OBSTRUCTIVE SLEEP APNEA OBESITY (Renamed from OBESE) : Weight loss encouraged Indication:OBESITY (Renamed from OBESE) ASTHMA (Renamed from AIRWAY HYPERREACTIVITY) : Obtain CXR and CT chest reports from [facility] Indication:ASTHMA (Renamed from AIRWAY HYPERREACTIVITY) ASTHMA (Renamed from AIRWAY HYPERREACTIVITY) : FU EITHER - Dr. Bishnu Elias patient Indication:ASTHMA (Renamed from AIRWAY HYPERREACTIVITY) GASTROESOPHAGEAL REFLUX DISEASE : Avoid triggers Indication:GASTROESOPHAGEAL REFLUX DISEASE ASTHMA (Renamed from AIRWAY HYPERREACTIVITY) : FU EITHER - Jada patient Indication:ASTHMA (Renamed from AIRWAY HYPERREACTIVITY) ASTHMA (Renamed from AIRWAY HYPERREACTIVITY) : Obtain CT chest report from Dr. Lanza- Hem/onc office Indication:ASTHMA (Renamed from AIRWAY HYPERREACTIVITY) ASTHMA (Renamed from AIRWAY HYPERREACTIVITY) : Influenza vaccine seasonally - current Indication:ASTHMA (Renamed from AIRWAY HYPERREACTIVITY) ASTHMA (Renamed from AIRWAY HYPERREACTIVITY) : FU EITHER - Jada patient Indication:ASTHMA (Renamed from AIRWAY HYPERREACTIVITY) ASTHMA (Renamed from AIRWAY HYPERREACTIVITY) : FU EITHER - Jada patient Indication:ASTHMA (Renamed from AIRWAY HYPERREACTIVITY) ASTHMA (Renamed from AIRWAY HYPERREACTIVITY) : Follow up in 4 weeks Indication:ASTHMA (Renamed from AIRWAY HYPERREACTIVITY) ASTHMA (Renamed from AIRWAY HYPERREACTIVITY) : FU EITHER - Jada patient Indication:ASTHMA (Renamed from AIRWAY HYPERREACTIVITY) ALLERGIC RHINITIS : Start sinus rinses Indication:ALLERGIC RHINITIS ASTHMA (Renamed from AIRWAY HYPERREACTIVITY) : FU EITHER - Jada patient Indication:ASTHMA (Renamed from AIRWAY HYPERREACTIVITY) ASTHMA (Renamed from AIRWAY HYPERREACTIVITY) : Influenza vaccine seasonally - current Indication:ASTHMA (Renamed from AIRWAY HYPERREACTIVITY) ASTHMA (Renamed from AIRWAY HYPERREACTIVITY) : FU EITHER - Jada patient Indication:ASTHMA (Renamed from AIRWAY HYPERREACTIVITY) ASTHMA (Renamed from AIRWAY HYPERREACTIVITY) : FU EITHER Indication:ASTHMA (Renamed from AIRWAY HYPERREACTIVITY) ASTHMA (Renamed from AIRWAY HYPERREACTIVITY) : Follow up in 6 months Indication:ASTHMA (Renamed from AIRWAY HYPERREACTIVITY) ASTHMA (Renamed from AIRWAY HYPERREACTIVITY) : Oximetry - Rest and exercise next visit Indication:ASTHMA (Renamed from AIRWAY HYPERREACTIVITY) GASTROESOPHAGEAL REFLUX DISEASE : Avoid triggers Indication:GASTROESOPHAGEAL REFLUX DISEASE GASTROESOPHAGEAL REFLUX DISEASE : Continue current medications Indication:GASTROESOPHAGEAL REFLUX DISEASE ALLERGIC RHINITIS : Envirnmental controls Indication:ALLERGIC RHINITIS ALLERGIC RHINITIS : Continue current medications Indication:ALLERGIC RHINITIS OBESITY (Renamed from OBESE) : Weight Loss Indication:OBESITY (Renamed from OBESE) ASTHMA (Renamed from AIRWAY HYPERREACTIVITY) : Call with symptoms Indication:ASTHMA (Renamed from AIRWAY HYPERREACTIVITY) ASTHMA (Renamed from AIRWAY HYPERREACTIVITY) : Influenza vaccine in Fall Indication:ASTHMA (Renamed from AIRWAY HYPERREACTIVITY) ASTHMA (Renamed from AIRWAY HYPERREACTIVITY) : Continue current medications Indication:ASTHMA (Renamed from AIRWAY HYPERREACTIVITY) OBSTRUCTIVE SLEEP APNEA : Discussed possible health risks associated with untreated sleep apnea Indication:OBSTRUCTIVE SLEEP APNEA OBSTRUCTIVE SLEEP APNEA : Discussed possible cardiovascular effects of untreated sleep apnea Indication:OBSTRUCTIVE SLEEP APNEA OBSTRUCTIVE SLEEP APNEA : Discussed need to notify all physicians of their diagnosis Indication:OBSTRUCTIVE SLEEP APNEA OBSTRUCTIVE SLEEP APNEA : Discussed chcf use Indication:OBSTRUCTIVE SLEEP APNEA OBSTRUCTIVE SLEEP APNEA : Discussed the importance of compliance Indication:OBSTRUCTIVE SLEEP APNEA OBSTRUCTIVE SLEEP APNEA : Cpap Supplies Indication:OBSTRUCTIVE SLEEP APNEA OBSTRUCTIVE SLEEP APNEA : Continue with Cpap therapy Indication:OBSTRUCTIVE SLEEP APNEA Results No Known Results No Result Information Available Vital Signs 31-Mar-2019 11:15 Temperature 97.1 f Comments: Method: Tympanic Pulse 86 /min Comments: Pattern: Regular Respiration Rate 16 /min Comments: Pattern: Unlabored O2 SAT 98 % Comments: Room air BP Systolic 130 mm[Hg] Comments: Patient Position: Sitting; Cuff Location: Left Arm; Cuff Size: Standard BP Diastolic 72 mm[Hg] Comments: Patient Position: Sitting; Cuff Location: Left Arm; Cuff Size: Standard Weight 238 lb Height 66 in BMI 38.41 kg/m2 BSA 2.15 m2 20-Sep-2018 12:52 Temperature 97.5 f Comments: Method: Tympanic Pulse 79 /min Comments: Pattern: Regular Respiration Rate 14 /min Comments: Pattern: Unlabored O2 SAT 98 % Comments: Room air BP Systolic 140 mm[Hg] Comments: Patient Position: Sitting; Cuff Location: Left Arm; Cuff Size: Standard BP Diastolic 74 mm[Hg] Comments: Patient Position: Sitting; Cuff Location: Left Arm; Cuff Size: Standard Weight 250 lb Height 66 in BMI 40.35 kg/m2 BSA 2.2 m2 05-Feb-2018 11:34 Temperature 96.6 f Comments: Method: Tympanic Pulse 64 /min Comments: Pattern: Regular Respiration Rate 14 /min Comments: Pattern: Unlabored O2 SAT 97 % Comments: Room air BP Systolic 146 mm[Hg] Comments: Patient Position: Sitting; Cuff Location: Right Arm; Cuff Size: Large BP Diastolic 70 mm[Hg] Comments: Patient Position: Sitting; Cuff Location: Right Arm; Cuff Size: Large Weight 260 lb Height 66 in BMI 41.96 kg/m2 BSA 2.24 m2 31-Jul-2017 12:56 Temperature 97.2 f Comments: Method: Tympanic Pulse 76 /min Comments: Pattern: Regular Respiration Rate 16 /min Comments: Pattern: Unlabored O2 SAT 98 % Comments: Room air BP Systolic 124 mm[Hg] Comments: Patient Position: Sitting; Cuff Location: Left Arm; Cuff Size: Standard BP Diastolic 80 mm[Hg] Comments: Patient Position: Sitting; Cuff Location: Left Arm; Cuff Size: Standard Weight 256 lb Height 66 in BMI 41.32 kg/m2 BSA 2.22 m2 06-Jun-2017 10:37 Comments: Exertional SaO2 on room air - 96% Temperature 98 f Comments: Method: Tympanic Pulse 93 /min Comments: Pattern: Regular Respiration Rate 14 /min Comments: Pattern: Unlabored O2 SAT 98 % Comments: Room air BP Systolic 126 mm[Hg] Comments: Patient Position: Sitting; Cuff Location: Left Arm; Cuff Size: Standard BP Diastolic 78 mm[Hg] Comments: Patient Position: Sitting; Cuff Location: Left Arm; Cuff Size: Standard Weight 251 lb Height 66 in BMI 40.51 kg/m2 BSA 2.2 m2 20-Apr-2017 11:00 Temperature 97.4 f Comments: Method: Tympanic Pulse 84 /min Comments: Pattern: Regular Respiration Rate 16 /min Comments: Pattern: Unlabored O2 SAT 97 % Comments: Room air BP Systolic 124 mm[Hg] Comments: Patient Position: Sitting; Cuff Location: Left Arm; Cuff Size: Standard BP Diastolic 68 mm[Hg] Comments: Patient Position: Sitting; Cuff Location: Left Arm; Cuff Size: Standard Weight 249 lb Height 66 in BMI 40.19 kg/m2 BSA 2.2 m2 05-Jul-2016 11:54 Temperature 97.1 f Comments: Method: Tympanic Pulse 68 /min Comments: Pattern: Regular Respiration Rate 12 /min Comments: Pattern: Unlabored O2 SAT 97 % Comments: Room air BP Systolic 136 mm[Hg] Comments: Patient Position: Sitting; Cuff Location: Left Arm; Cuff Size: Standard BP Diastolic 78 mm[Hg] Comments: Patient Position: Sitting; Cuff Location: Left Arm; Cuff Size: Standard Weight 246 lb Height 66 in BMI 39.71 kg/m2 BSA 2.18 m2 30-Dec-2015 10:14 Temperature 97.8 f Comments: Method: Tympanic Pulse 66 /min Comments: Pattern: Regular Respiration Rate 16 /min Comments: Pattern: Unlabored O2 SAT 97 % Comments: Room air BP Systolic 132 mm[Hg] Comments: Patient Position: Sitting; Cuff Location: Right Arm; Cuff Size: Large BP Diastolic 76 mm[Hg] Comments: Patient Position: Sitting; Cuff Location: Right Arm; Cuff Size: Large Weight 227 lb Height 66 in BMI 36.64 kg/m2 BSA 2.11 m2 28-May-2015 8:44 Temperature 97.7 f Comments: Method: Tympanic Pulse 59 /min Comments: Pattern: Regular Respiration Rate 16 /min Comments: Pattern: Unlabored O2 SAT 99 % Comments: Room air BP Systolic 134 mm[Hg] Comments: Patient Position: Sitting; Cuff Location: Left Arm; Cuff Size: Standard BP Diastolic 78 mm[Hg] Comments: Patient Position: Sitting; Cuff Location: Left Arm; Cuff Size: Standard Weight 208 lb Height 66 in BMI 33.57 kg/m2 BSA 2.03 m2 27-Oct-2014 10:50 Temperature 98.2 f Comments: Method: Tympanic Pulse 59 /min Comments: Pattern: Regular Respiration Rate 12 /min Comments: Pattern: Unlabored O2 SAT 98 % Comments: Room air BP Systolic 140 mm[Hg] Comments: Patient Position: Sitting; Cuff Location: Left Arm; Cuff Size: Large BP Diastolic 60 mm[Hg] Comments: Patient Position: Sitting; Cuff Location: Left Arm; Cuff Size: Large Weight 225 lb Height 66 in BMI 36.32 kg/m2 BSA 2.1 m2 27-Apr-2014 14:42 Temperature 96.8 f Comments: Method: Tympanic Pulse 61 /min Comments: Pattern: Regular Respiration Rate 18 /min Comments: Pattern: Unlabored O2 SAT 96 % Comments: Room air BP Systolic 122 mm[Hg] Comments: Patient Position: Sitting; Cuff Location: Left Arm; Cuff Size: Standard BP Diastolic 68 mm[Hg] Comments: Patient Position: Sitting; Cuff Location: Left Arm; Cuff Size: Standard Weight 240 lb Height 66 in BMI 38.74 kg/m2 BSA 2.16 m2 20-Jan-2014 11:21 Temperature 97.4 f Comments: Method: Tympanic Pulse 70 /min Comments: Pattern: Regular Respiration Rate 18 /min Comments: Pattern: Unlabored O2 SAT 96 % Comments: Room air BP Systolic 108 mm[Hg] Comments: Patient Position: Sitting; Cuff Location: Left Arm; Cuff Size: Standard BP Diastolic 68 mm[Hg] Comments: Patient Position: Sitting; Cuff Location: Left Arm; Cuff Size: Standard Weight 235 lb Height 64 in BMI 40.34 kg/m2 BSA 2.09 m2 19-Dec-2013 12:18 Comments: Exertional SaO2 -96% Temperature 96.8 f Comments: Method: Tympanic Pulse 68 /min Comments: Pattern: Regular Respiration Rate 18 /min Comments: Pattern: Unlabored O2 SAT 98 % Comments: Room air BP Systolic 128 mm[Hg] Comments: Patient Position: Sitting; Cuff Location: Left Arm; Cuff Size: Standard BP Diastolic 68 mm[Hg] Comments: Patient Position: Sitting; Cuff Location: Left Arm; Cuff Size: Standard Weight 239 lb Height 66 in BMI 38.58 kg/m2 BSA 2.16 m2 22-Apr-2013 10:06 Temperature 98 f Comments: Method: Tympanic Pulse 58 /min Comments: Pattern: Regular Respiration Rate 16 /min Comments: Pattern: Unlabored BP Systolic 152 mm[Hg] Comments: Patient Position: Sitting; Cuff Location: Left Arm; Cuff Size: Large BP Diastolic 60 mm[Hg] Comments: Patient Position: Sitting; Cuff Location: Left Arm; Cuff Size: Large Weight 227 lb Height 64 in BMI 38.96 kg/m2 BSA 2.06 m2 16-Oct-2012 14:52 Comments: exertional O2-94% RA Temperature 97.6 f Comments: Method: Tympanic Pulse 71 /min Comments: Pattern: Regular Respiration Rate 18 /min Comments: Pattern: Unlabored O2 SAT 98 % Comments: Room air BP Systolic 118 mm[Hg] Comments: Patient Position: Sitting; Cuff Location: Left Arm; Cuff Size: Standard BP Diastolic 72 mm[Hg] Comments: Patient Position: Sitting; Cuff Location: Left Arm; Cuff Size: Standard Weight 232 lb Height 64 in BMI 39.82 kg/m2 BSA 2.08 m2 18-Apr-2012 13:06 Temperature 98.5 f Comments: Method: Tympanic Pulse 62 /min Comments: Pattern: Regular Respiration Rate 14 /min Comments: Pattern: Unlabored BP Systolic 124 mm[Hg] Comments: Patient Position: Sitting; Cuff Location: Left Arm; Cuff Size: Standard BP Diastolic 60 mm[Hg] Comments: Patient Position: Sitting; Cuff Location: Left Arm; Cuff Size: Standard Weight 225 lb Height 66 in BMI 36.32 kg/m2 BSA 2.1 m2 18-Apr-2012 12:58 Comments: Exertional SaO2 -95% O2 SAT 98 % Comments: Room air 17-Oct-2011 12:42 Temperature 96.8 f Comments: Method: Tympanic Pulse 68 /min Comments: Pattern: Regular Respiration Rate 20 /min Comments: Pattern: Unlabored O2 SAT 98 % Comments: Room air BP Systolic 122 mm[Hg] Comments: Patient Position: Sitting; Cuff Location: Left Arm; Cuff Size: Standard BP Diastolic 78 mm[Hg] Comments: Patient Position: Sitting; Cuff Location: Left Arm; Cuff Size: Standard Weight 227 lb Height 66 in BMI 36.64 kg/m2 BSA 2.11 m2 18-Apr-2011 13:26 Temperature 97.8 f Comments: Method: Tympanic Pulse 80 /min Comments: Pattern: Regular Respiration Rate 18 /min Comments: Pattern: Unlabored O2 SAT 98 % Comments: Room air BP Systolic 118 mm[Hg] Comments: Patient Position: Sitting; Cuff Location: Right Arm; Cuff Size: Standard BP Diastolic 64 mm[Hg] Comments: Patient Position: Sitting; Cuff Location: Right Arm; Cuff Size: Standard Weight 249 lb Height 64 in BMI 42.74 kg/m2 BSA 2.15 m2 Advance Directives HIPAA - Effective on 04/20/2017. Expiration date unspecified. Effective: Scanned Document is available upon request. Encounters Office Visit 31-Mar-2019 11:15 To 31-Mar-2019 11:51 Encounter Reason: ASTHMA, FOLLOW UP - The last clinic visit was 6 month(s) ago. Management changes made at the last [facility] Office it include none (tried dose reduction on ISC with samples, didn't tolerate). The patient's asthma causes daytime symptoms 1 to 2 times per week. The patient' s asthma is not disturbing sleep. Symptoms in clude wheezing, shortness of breath and productive cough (with clear sputum), while symptoms do not include chest tightness, non-productive cough or chest pain. The patient describes the difficulty lei thing as dyspnea on exertion. Onset of symptoms was gradual year(s) ago. The episodes occur weekly. The patient describes this as unchanged (although she was recenly on oral steroids for exacerbation re lated to allergy symptoms. still on xolair). Symptoms are exacerbated by cold temperature and activity (also allergy symptoms). Symptoms are relieved by inhaler use, rest and oral steroids (with acute e pisodes. most recently summer 2018 and summer 2017). Associated symptoms include allergy symptoms, while associated symptoms do not include fever or upper respiratory infection symptoms. Current treatme nt includes inhaled albuterol, inhaled long-acting beta-2 agonists, inhaled corticosteroids (dulera 200/5mcg, 2 puffs bid), inhaled anticholinergics ( spiriva respimat 2.5mcg), leukotriene modifiers and omalizumab (Xolair) (started jul 2018 with box toe maker, q 2 week dosing). Bronchodilator use is becoming more frequent (with recent exacerbation 2-3 times /day max). By report there is good compliance with treatment, good tolerance of treatment and fair symptom control. Pertinent medical history includes other pulmonary disease, allergic rhinitis and gastroesophageal reflux. The patient has been exposed to animal dander (1 dog), while the patient has not been exposed to wood burning stove, mold/mildew in the home or tobacco smoke. Past evaluation has included chest CT (jul 2017, emphysematous changes)., [ADDITIONAL REASON] Sleep follow up - The sleep disorder is characterized as obstructive sleep apnea. The patient gets approximately 9 hours of sleep per night. Current treatment includes CPAP therapy (home care company is in [place]). Current symptoms do not include excessive daytime sleepiness, snoring (sleeps alone, denies snorting arousals) or weight gain. The patient describes this as unchanged . Symptoms are relieved by CPAP use. Associated symptoms do not include morning headaches. Since diagnosis the disease has been unchanged. Initial diagnosis of sleep disorder was year(s) ago. Recently t he disease has been unchanged. Past evaluation has included nighttime sleep study. Past treatment has included CPAP therapy. Encounter Diagnosis: ASTHMA-COPD OVERLAP SYNDROME, GASTROESOPHAGEAL REFLUX DISEASE, OBESITY (Renamed from OBESE), OBSTRUCTIVE SLEEP APNEA Office Visit 20-Sep-2018 12:04 To 20-Sep-2018 13:34 Encounter Reason: ASTHMA, FOLLOW UP - The last clinic visit was 6 month(s) ago. Management changes made at the last [facility] Office it include stopping qvar. The patient's asthma causes daytime symptoms 1 to 2 times per week. The patient's asthma is not disturbing sleep. Symptoms include shortness of breath and productive cough (wit h clear sputum), while symptoms do not include wheezing, chest tightness, non- productive cough or chest pain. The patient describes the difficulty breathing as dyspnea on exertion. Onset of symptoms was gradual year(s) ago. The episodes occur weekly. The patient describes this as improving (started xolair with box toe maker 6 weeks ago, already noticing benefit with mostly a reduction in cough). Symptoms are exacerbated by cold temperature and activity (also allergy symptoms). Symptoms are relieved by inhaler use, rest and oral steroids (with acute episodes. most recently summer 2017). Associated sympto ms include allergy symptoms (sporadic pnd), while associated symptoms do not include fever or upper respiratory infection symptoms. Current treatment includes inhaled albuterol, inhaled long-acting beta -2 agonists, inhaled corticosteroids (dulera 2 puffs bid), inhaled anticholinergics (spiriva respimat 2.5mcg), leukotriene modifiers and omalizumab (Xolair) (started jul 2018 with box toe maker). Bronchodil ator use is becoming less frequent (hasn't needed). By report there is good compliance with treatment, good tolerance of treatment and good symptom control. Pertinent medical history includes other pulm onary disease (has sleep apnea, using auto titrating cpap at bedtime. home care company is [employer]. more rested with cpap), allergic rhinitis and gastroesophageal reflux. The patient has be en exposed to animal dander (1 dog), while the patient has not been exposed to wood burning stove, mold/mildew in the home or tobacco smoke. Past evaluation has included chest CT (jul 2017, emphysematous changes). Encounter Diagnosis: ASTHMA-COPD OVERLAP SYNDROME, OBSTRUCTIVE SLEEP APNEA, OBESITY (Renamed from OBESE), GASTROESOPHAGEAL REFLUX DISEASE Office Visit 05-Feb-2018 11:18 To 05-Feb-2018 12:24 Encounter Reason: ASTHMA, FOLLOW UP - The last clinic visit was 6 month(s) ago. No changes in management were made at t [facility] Office he last visit. The patient's asthma causes daytime symptoms most days. The patient's asthma is not disturbing sleep. Symptoms include wheezing, shortness of breath and productive cough (with clear sputu m), while symptoms do not include chest tightness, non-productive cough or chest pain. The patient describes the difficulty breathing as dyspnea on exertion. Onset of symptoms was gradual year(s) ago. T he episodes occur daily. The patient describes this as unchanged. Symptoms are exacerbated by cold temperature and activity (also allergy symptoms). Symptoms are relieved by inhaler use, rest and oral s teroids (with acute episodes in february 2017 and apr 2017). Associated symptoms include allergy symptoms (sporadic pnd), while associated symptoms do not include fever or upper respiratory infection symp toms. Current treatment includes inhaled albuterol (has not used, has had flu vaccine), inhaled long-acting beta-2 agonists, inhaled corticosteroids (dulera 2 puffs bid and with qvar 2 puffs noon), inha led anticholinergics (spiriva respimat daily) and leukotriene modifiers ( singulair daily). Bronchodilator use is staying the same. By report there is good compliance with treatment, good tolerance of tr eatment and good symptom control. Pertinent medical history includes other pulmonary disease (has sleep apnea, using auto titrating cpap at bedtime. home care company is [employer]), allergic rhinitis and gastroesophageal reflux. The patient has been exposed to animal dander (1 dog), while the patient has not been exposed to wood burning stove, mold/mildew in the home or tobacco smoke. Past evaluation has included chest CT (jul 2017, emphysematous changes). Encounter Diagnosis: ASTHMA (Renamed from AIRWAY HYPERREACTIVITY), OBSTRUCTIVE SLEEP APNEA, OBESITY (Renamed from OBESE) Order Only 01-Aug-2017 8:50 To 01-Aug-2017 8:51 Encounter Diagnosis: ASTHMA (Renamed from AIRWAY HYPERREACTIVITY) [facility] Office Office Visit 31-Jul-2017 12:51 To 31-Jul-2017 13:18 Encounter Reason: ASTHMA, FOLLOW UP - The last clinic visit was 2 month(s) ago. Management changes made at the last vis [facility] Office it include none (Increase Spiriva respimat to 2.5 g formulation, to use Qvar midday, and to use flutter valve, fluid intake and Mucinex as prescribed.). The patient's asthma causes daytime symptoms most days. The patient's asthma is not disturbing sleep. Symptoms include wheezing (decreased since last appt.), shortness of breath (improved, s/s only with exertion such as walking quickly) and produc tive cough (was continuous and now sporadic, 2-3x/day, clear sputum), while symptoms do not include chest tightness, non-productive cough or chest pain. The patient describes the difficulty breathing as dyspnea on exertion. Onset of symptoms was gradual year(s) ago. The episodes occur daily. The patient describes this as improving. Symptoms are exacerbated by cold temperature and activity (also allerg y symptoms). Symptoms are relieved by inhaler use, rest and oral steroids ( with acute episodes in february 2017 and apr 2017). Associated symptoms include allergy symptoms (sporadic pnd), while associated symptoms do not include fever or upper respiratory infection symptoms. Current treatment includes inhaled albuterol (has not used, has had flu vaccine) , inhaled long-acting beta-2 agonists, inhaled cor ticosteroids (dulera 2 puffs bid and with qvar 2 puffs noon), inhaled anticholinergics (spiriva respimat daily) and leukotriene modifiers (singulair daily). Bronchodilator use is becoming less frequent. By report there is good compliance with treatment, good tolerance of treatment and good symptom control. Pertinent medical history includes other pulmonary disease (has sleep apnea, using auto titratin g cpap q hs), allergic rhinitis and gastroesophageal reflux. The patient has been exposed to animal dander (1 dog), while the patient has not been exposed to wood burning stove, mold/mildew in the home or tobacco smoke. The patient is currently able to do activities of daily living without limitations and able to do housework without limitations (at times tired). Past evaluation has included chest x-r ay (had CABG mar 2015 and we now have image reports. she had post op left effusion and had TAP. we don't have TAP results but she is unaware of any significant finding. she also had cardiac pacemaker p laced since her last visit here without complication). Encounter Diagnosis: GASTROESOPHAGEAL REFLUX DISEASE, OBESITY (Renamed from OBESE), ALLERGIC RHINITIS, OBSTRUCTIVE SLEEP APNEA, HYPERTENSION, ASTHMA-COPD OVERLAP SYNDROME Historical Summary 31-Jul-2017 11:48 To 31-Jul-2017 11:52 Encounter Reason: ASTHMA, FOLLOW UP - The last clinic visit was 2 month(s) ago. Management changes made at the last [facility] Office it include none (Increase Spiriva respimat to 2.5 g formulation, to use Qvar midday, and to use flutter valve, fluid intake and Mucinex as prescribed.). The patient's asthma causes daytime symptoms most days. The patient's asthma is not disturbing sleep. Symptoms include wheezing, shortness of breath and productive cough (clear sputum), while symptoms do not include chest tightness, non-productive cough or chest pain. The patient describes the difficulty breathing as dyspnea on exertion. Onset of symptoms was gradual year(s) ago. The episodes occur daily. The patient describes this as worsening (in 2017 with more coughing, more congestion. mucous can be quite thick. hasn' t tried mucinex. hasn't tired flutter device). Symptoms are exacerbated by cold temperature and activity (also allergy sympt oms). Symptoms are relieved by inhaler use, rest and oral steroids (with acute episodes in february 2017 and apr 2017). Associated symptoms include allergy symptoms (pnd), while associated symptoms do not include fever. Current treatment includes inhaled albuterol (prn and has not used, has had flu vaccine), inhaled long-acting beta-2 agonists, inhaled corticosteroids (dulera 2 puffs bid and now additio nal ICS with qvar 2 puffs in the morning), inhaled anticholinergics (spiriva respimat) and leukotriene modifiers. Bronchodilator use is becoming more frequent (currently q 4 hrs with some benefit). By r eport there is good compliance with treatment, good tolerance of treatment and fair symptom control. Pertinent medical history includes other pulmonary disease (has sleep apnea, using auto titrating cpa p now. home care company is [employer]. sleeps better on cpap and uses it nightly. not snoring on cpap that she is aware of), allergic rhinitis and gastroesophageal reflux. The patient has been exposed to animal dander (1 dog), while the patient has not been exposed to wood burning stove, mold/mildew in the home or tobacco smoke. Past evaluation has included chest x-ray (had CABG mar 2015 and we now have image reports. she had post op left effusion and had TAP. we don' t have TAP results but she is unaware of any significant finding. she also had cardiac pacemaker placed since her last visit here without complication). Office Visit 31-Jul-2017 10:02 To 31-Jul-2017 14:01 Encounter Diagnosis: ASTHMA (Renamed from AIRWAY HYPERREACTIVITY) [facility] Office Radiology 31-Jul-2017 10:02 To 31-Jul-2017 10:20 Encounter Diagnosis: PLEURAL EFFUSION, LEFT [facility] Office Visit 06-Jun-2017 10:26 To 06-Jun-2017 12:43 Encounter Reason: ASTHMA, FOLLOW UP - The last clinic visit was 2 month(s) ago. Management changes made at the last [facility] Office it include none (with increased coughing since last visit. has been on abx and oral steroids (once each) with some benefit. still not back to baseline. started qvar 2 puff daily also with benefit. takin g meds for reflux and allergy. working with box toe maker as well. will be having blood work done with them soon, may consider starting allergy shots again. she isn't sure if they are considering xolair). T he patient's asthma causes daytime symptoms most days. The patient's asthma is not disturbing sleep. Symptoms include wheezing, shortness of breath and productive cough (clear sputum), while symptoms do not include chest tightness, non-productive cough or chest pain. The patient describes the difficulty breathing as dyspnea on exertion. Onset of symptoms was gradual year(s) ago. The episodes occur phil ly. The patient describes this as worsening (in 2017 with more coughing, more congestion. mucous can be quite thick. hasn't tried mucinex. hasn't tired flutter device). Symptoms are exacerbated by cold temperature and activity (also allergy symptoms). Symptoms are relieved by inhaler use, rest and oral steroids (with acute episodes in february 2017 and apr 2017). Associated symptoms include allergy symp toms (pnd), while associated symptoms do not include fever. Current treatment includes inhaled albuterol (prn and has not used, has had flu vaccine), inhaled long-acting beta-2 agonists, inhaled cortico steroids (dulera 2 puffs bid and now additional ICS with qvar 2 puffs in the morning), inhaled anticholinergics (spiriva respimat) and leukotriene modifiers. Bronchodilator use is becoming more frequent (currently q 4 hrs with some benefit). By report there is good compliance with treatment, good tolerance of treatment and fair symptom control. Pertinent medical history includes other pulmonary diseas e (has sleep apnea, using auto titrating cpap now. home care company is [employer]. sleeps better on cpap and uses it nightly. not snoring on cpap that she is aware of), allergic rhinitis and ga stroesophageal reflux. The patient has been exposed to animal dander (1 dog), while the patient has not been exposed to wood burning stove, mold/mildew in the home or tobacco smoke. Past evaluation has included chest x-ray (had CABG mar 2015 and we now have image reports. she had post op left effusion and had TAP. we don't have TAP results but she is unaware of any significant finding. she also had c ardiac pacemaker placed since her last visit here without complication). Encounter Diagnosis: ASTHMA (Renamed from AIRWAY HYPERREACTIVITY), GASTROESOPHAGEAL REFLUX DISEASE, ALLERGIC RHINITIS, OBSTRUCTIVE SLEEP APNEA, OBESITY (Renamed from OBESE) Office Visit 20-Apr-2017 10:02 To 20-Apr-2017 12:23 Encounter Reason: ASTHMA, FOLLOW UP - The last clinic visit was 9 month(s) ago (primary is Dr. Lorraine Brown. also [facility] Office eing Dr. Flowers in [place]). No changes in management were made at the last visit. The patient's asthma causes daytime symptoms 1 to 2 times per month ( more with URI and/or sinus disease and seen her all ergist recently for more sinus/allergy symptoms. spiriva respimat was added which she has found helpful). The patient's asthma is not disturbing sleep. Symptoms include wheezing, shortness of breath and productive cough (clear sputum), while symptoms do not include chest tightness , non-productive cough or chest pain. The patient describes the difficulty breathing as dyspnea on exertion. The episodes o ccur daily (just within the past 3 weeks with more sinus symptoms). The patient describes this as mild and unchanged. Symptoms are exacerbated by cold temperature and activity (also allergy symptoms spo radically). Symptoms are relieved by inhaler use, rest and oral steroids (with acute episodes, last was february 2017). Associated symptoms include allergy symptoms (pnd), while associated symptoms do not include fever. Current treatment includes inhaled albuterol (prn and has not used, has had flu vaccine), inhaled long-acting beta-2 agonists, inhaled corticosteroids (dulera 2 puffs bid), inhaled antic holinergics (spiriva respimat) and leukotriene modifiers (singulair daily). Bronchodilator use is staying the same (hasn't thought to use nebulized albuterol with recent symptoms-just forgot about it un til she was doing neb in our office today with spirometry). By report there is good compliance with treatment, good tolerance of treatment and fair symptom control. Pertinent medical history includes ot her pulmonary disease (has sleep apnea, using auto titrating cpap now. home care company is [employer]. sleeps better on cpap and uses it nightly), allergic rhinitis and gastroesophageal reflux. The patient has been exposed to animal dander (1 dog), while the patient has not been exposed to wood burning stove, mold/mildew in the home or tobacco smoke. Past evaluation has included chest x-ray ( had CABG mar 2015 and we now have image reports. she had post op left effusion and had TAP. we don't have TAP results but she is unaware of any significant finding. she also had cardiac pacemaker place d since her last visit here without complication). Encounter Diagnosis: ASTHMA (Renamed from AIRWAY HYPERREACTIVITY), OBSTRUCTIVE SLEEP APNEA, OBESITY (Renamed from OBESE), ALLERGIC RHINITIS, GASTROESOPHAGEAL REFLUX DISEASE Order Only 05-Jul-2016 15:51 To 05-Jul-2016 15:52 Encounter Diagnosis: ASTHMA (Renamed from AIRWAY HYPERREACTIVITY) [facility] Office Historical Summary 05-Jul-2016 11:50 To 05-Jul-2016 11:[address] [facility] Office Historical Summary 05-Jul-2016 11:30 To 05-Jul-2016 11:31 Encounter Reason: ASTHMA, FOLLOW UP - The last clinic visit was 6 month(s) ago (primary is Dr. Lorraine Brown, seeing [facility] Office Dr. Nancy Ceja, and Dr. Derek Huang). Management changes made at the last visit include none (except to use CPAP nightly and lose weight, address allergy and GERD, and check pleural fluid res ults.). The patient's asthma causes daytime symptoms 1 to 2 times per month. The patient's asthma is not disturbing sleep. Symptoms include shortness of breath (minimally at this time) and non-productiv e cough, while symptoms do not include wheezing, chest tightness, productive cough or chest pain. The patient describes the difficulty breathing as dyspnea on exertion. The patient describes this as unc hanged (except with recent infection, improving). Symptoms are exacerbated by cold temperature and activity (also allergy symptoms). Symptoms are relieved by inhaler use, rest and oral steroids (last spring). Associated symptoms do not include fever, upper respiratory infection symptoms or allergy symptoms. Current treatment includes inhaled albuterol, inhaled long-acting beta-2 agonists, inh aled corticosteroids (dulera 100/5 2 puffs bid) and leukotriene modifiers. Bronchodilator use is staying the same (hasn't needed). By report there is good compliance with treatment, good tolerance of tr eatment and fair symptom control. Pertinent medical history includes other pulmonary disease (has sleep apnea, using auto titrating cpap now. home care company is [employer]), allergic rhinitis and gastroesophageal reflux. The patient has been exposed to animal dander (1 dog), while the patient has not been exposed to wood burning stove, mold/mildew in the home or tobacco smoke. Past evaluatio n has included chest x-ray (had CABG mar 2015 and we now have image reports. she had post op left effusion and had TAP. we don't have TAP results but she is unaware of any significant finding. she also had cardiac pacemaker placed since her last visit here without complication). Office Visit 05-Jul-2016 11:26 To 05-Jul-2016 12:10 Encounter Reason: ASTHMA, FOLLOW UP - The last clinic visit was 6 month(s) ago (primary is Dr. Lorraine Brown, [facility] Office Dr. Nancy Ceja, and Dr. Derek Huang). Management changes made at the last visit include none (except to use CPAP nightly which she has done, lose weight but has gained 19# since last visit an d to be getting bariatric consult 07/2016, is addressing allergy and GERD.). The patient's asthma causes daytime symptoms 1 to 2 times per month. The patient 's asthma is not disturbing sleep. Symptoms in clude shortness of breath (a little worse, ? related to weight) and productive cough (clear sputum), while symptoms do not include wheezing, chest tightness, non-productive cough or chest pain. The roselia ent describes the difficulty breathing as dyspnea on exertion. The episodes occur daily. The patient describes this as mild and worsening (slightly). Symptoms are exacerbated by cold temperature and act ivity (also allergy symptoms sporadically). Symptoms are relieved by inhaler use, rest and oral steroids (with acute episodes, last was spring 2014). Associated symptoms do not include fever, upper resp iratory infection symptoms or allergy symptoms. Current treatment includes inhaled albuterol (prn and has not used, has had flu vaccine), inhaled long- acting beta-2 agonists, inhaled corticosteroids (du mundo 100/5 2 puffs bid) and leukotriene modifiers (singulair daily). Bronchodilator use is staying the same (hasn't needed). By report there is good compliance with treatment, good tolerance of treatmen t and good symptom control. Pertinent medical history includes other pulmonary disease (has sleep apnea, using auto titrating cpap now. home care company is [employer]), allergic rhinitis and ga stroesophageal reflux. The patient has been exposed to animal dander (1 dog), while the patient has not been exposed to wood burning stove, mold/mildew in the home or tobacco smoke. The patient is curre ntly able to do activities of daily living without limitations and able to do housework without limitations. Past evaluation has included chest x-ray (had CABG mar 2015 and we now have image reports. s he had post op left effusion and had TAP. we don't have TAP results but she is unaware of any significant finding. she also had cardiac pacemaker placed since her last visit here without complication). Encounter Diagnosis: ALLERGIC RHINITIS, ASTHMA (Renamed from AIRWAY HYPERREACTIVITY), OBESITY (Renamed from OBESE), OBSTRUCTIVE SLEEP APNEA, GASTROESOPHAGEAL REFLUX DISEASE Office Visit 30-Dec-2015 9:46 To 30-Dec-2015 11:08 Encounter Reason: ASTHMA, FOLLOW UP - The last clinic visit was 7 month(s) ago (primary is Dr. Lorraine Brown, seeing [facility] Office Dr. Nancy Ceja, and Dr. Derek Huang). No changes in management were made at the last visit. The patient's asthma causes daytime symptoms 1 to 2 times per month. The patient's asthma is not di sturbing sleep. Symptoms include shortness of breath (minimally at this time) and non-productive cough, while symptoms do not include wheezing, chest tightness, productive cough or chest pain. The patie nt describes the difficulty breathing as dyspnea on exertion. The patient describes this as unchanged (except with recent infection, improving). Symptoms are exacerbated by cold temperature and activity (also allergy symptoms). Symptoms are relieved by inhaler use, rest and oral steroids (last was spring 2014). Associated symptoms do not include fever, upper respiratory infection symptoms or allergy s ymptoms. Current treatment includes inhaled albuterol, inhaled long-acting beta -2 agonists, inhaled corticosteroids (dulera 100/5 2 puffs bid) and leukotriene modifiers. Bronchodilator use is staying same (hasn't needed). By report there is good compliance with treatment, good tolerance of treatment and fair symptom control. 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 home care company is [employer]), allergic rhinitis and gastroesophageal reflux. The patient has been exposed to animal dander (1 dog), while the patient has n ot been exposed to wood burning stove, mold/mildew in the home or tobacco smoke. Past evaluation has included chest x-ray (had CABG mar 2015 and we now have image reports. she had post op left effusion and had TAP. we don't have TAP results but she is unaware of any significant finding. she also had cardiac pacemaker placed since her last visit here without complication). Encounter Diagnosis: ASTHMA (Renamed from AIRWAY HYPERREACTIVITY), PLEURAL EFFUSION, LEFT, OBSTRUCTIVE SLEEP APNEA, OBESITY (Renamed from OBESE), GASTROESOPHAGEAL REFLUX DISEASE, ALLERGIC RHINITIS Office Visit 28-May-2015 8:27 To 28-May-2015 9:09 Encounter Reason: ASTHMA, FOLLOW UP - The last clinic visit was 7 month(s) ago (primary is Dr. Lorraine Brown, seeing [facility] Office Dr. Nancy Ceja, and Dr. Derek Huang). No changes in management were made at the last visit. The patient's asthma causes daytime symptoms 1 to 2 times per month. The patient's asthma is not di sturbing sleep. Symptoms include shortness of breath (minimally at this time, less active as she is waiting to start cardiac rehab after CABG) and non- productive cough, while symptoms do not include whe ezing, chest tightness, productive cough or chest pain. The patient describes the difficulty breathing as dyspnea on exertion. The patient describes this as improving. Symptoms are exacerbated by cold t emperature and activity (also allergy symptoms). Symptoms are relieved by inhaler use, rest and oral steroids (last was spring 2014). Associated symptoms do not include fever, upper respiratory infectio n symptoms or allergy symptoms. Current treatment includes inhaled albuterol, inhaled long-acting beta-2 agonists, inhaled corticosteroids (dulera 200/5 2 puffs bid) and leukotriene modifiers. Bronchodi lator use is becoming less frequent. By report there is good compliance with treatment, good tolerance of treatment and fair symptom control. Pertinent medical history includes other pulmonary disease ( has sleep apnea, using auto titrating cpap now without issue. able to use all night. home care company is [employer]), allergic rhinitis and gastroesophageal reflux. The patient has been exposed to animal dander (1 dog), while the patient has not been exposed to wood burning stove, mold/mildew in the home or tobacco smoke. Encounter Diagnosis: ASTHMA (Renamed from AIRWAY HYPERREACTIVITY), OBSTRUCTIVE SLEEP APNEA, OBESITY (Renamed from OBESE), GASTROESOPHAGEAL REFLUX DISEASE, ALLERGIC RHINITIS Office Visit 27-Oct-2014 10:36 To 27-Oct-2014 13:38 Encounter Reason: ASTHMA, FOLLOW UP - The last clinic visit was 5 month(s) ago (primary is Dr. Lorraine Brown, [facility] Office Dr. Ceja). No changes in management were made at the last visit. The patient's asthma causes daytime symptoms most days (just recently with acute sinusitis. has seen box toe maker and is on second cours e of abx/prednisone. has also been feeling ill. she has gradually improved. she will be done with this course of abx/pred within the next couple days. she was otherwise feeling well all winter. retired in may 2014 and she was feeling better last year after getting coronary artery stent. she has completed cardiac rehab. she mentions enlarged lymph nodes, initially noted in her neck on carotid a rtery testing. aspiration was negative for malignancy per patient. she has established with Dr. Rafia Lanza and had full ct scan and has numerous enlarged nodes that are being monitored). The patient 's asthma is not disturbing sleep. Symptoms include wheezing (occ), shortness of breath (a little) and productive cough (thick, white), while symptoms do not include chest tightness, non-productive coug h or chest pain. The patient describes the difficulty breathing as dyspnea on exertion. The patient describes this as unchanged (except with recent infection , improving). Symptoms are exacerbated by col d temperature and activity (also allergy symptoms). Symptoms are relieved by inhaler use, rest and oral steroids. Associated symptoms include allergy symptoms, while associated symptoms do not include f ever or upper respiratory infection symptoms. Current treatment includes inhaled albuterol, inhaled long-acting beta-2 agonists, inhaled corticosteroids (dulera 200/5 2 puffs bid) and leukotriene modifi ers. Bronchodilator use is becoming more frequent (just with recent URI). By report there is good compliance with treatment, good tolerance of treatment and fair symptom control. Pertinent medical histo ry includes other pulmonary disease (has sleep apnea, using auto titrating cpap now without issue. able to use all night. home care company is [employer]), allergic rhinitis and gastroesophageal reflux. T he patient has been exposed to animal dander (1 dog), while the patient has not been exposed to wood burning stove, mold/mildew in the home or tobacco smoke. Encounter Diagnosis: ASTHMA (Renamed from AIRWAY HYPERREACTIVITY), OBSTRUCTIVE SLEEP APNEA, OBESITY (Renamed from OBESE), GASTROESOPHAGEAL REFLUX DISEASE, ALLERGIC RHINITIS Office Visit 27-Apr-2014 14:18 To 27-Apr-2014 15:04 Encounter Reason: ASTHMA, FOLLOW UP - The last clinic visit was 3 month(s) ago (primary is Dr. Lorraine Brown, [facility] Office Dr. Ceja). Management changes made at the last visit include stopping alvesco. The patient's asthma causes daytime symptoms 1 to 2 times per week. The patient's asthma is not disturbing sleep. Sympt oms include chest tightness (occ with exercise) and shortness of breath (a little, much better compared to prior visits), while symptoms do not include wheezing, productive cough, non-productive cough o r chest pain. The patient describes the difficulty breathing as dyspnea on exertion. The patient describes this as improving (she did have cardiac cath in february with 2 stents. no UT. she is in cardiac rehab. she does have aortic valve disease but not significant enough for intervention at this time). Symptoms are exacerbated by activity (also allergy symptoms). Symptoms are relieved by inhaler use, r est and oral steroids. Associated symptoms include allergy symptoms, while associated symptoms do not include fever or upper respiratory infection symptoms. Current treatment includes inhaled albuterol, inhaled long-acting beta-2 agonists, inhaled corticosteroids (dulera 200/5 2 puffs bid) and leukotriene modifiers. Bronchodilator use is becoming less frequent. By report there is good compliance with treatment, good tolerance of treatment and fair symptom control. Pertinent medical history includes other pulmonary disease (has sleep apnea, using auto titrating cpap now with better response. pressure s are more comfortable), allergic rhinitis and gastroesophageal reflux. Encounter Diagnosis: ASTHMA (Renamed from AIRWAY HYPERREACTIVITY), ALLERGIC RHINITIS, GASTROESOPHAGEAL REFLUX DISEASE, OBSTRUCTIVE SLEEP APNEA, OBESITY (Renamed from OBESE) Office Visit 20-Jan-2014 11:11 To 20-Jan-2014 11:51 Encounter Reason: ASTHMA, FOLLOW UP - The last clinic visit was 1 month(s) ago (primary is Dr. Lorraine Brown, seeing [facility] Office Dr. Ceja). Management changes made at the last visit include adding alvesco 2 puffs bid (has been helpful but more helpful was a diuretic change with improvement in edema. recent echo showed more ao rtic valve stenosis and she is going to need to see cardiology-[facility]. waiting on appt date/time). The patient's asthma causes daytime symptoms most days (but better). The patient's asthma is not di sturbing sleep. Symptoms include shortness of breath (improved from november 2013 visit, possible cardiology cause as well. really improved with diuretic change) and productive cough (clear mucous), while sy mptoms do not include wheezing, chest tightness, non-productive cough or chest pain. The patient describes the difficulty breathing as dyspnea on exertion. The patient describes this as improving. Sympt oms are exacerbated by activity (also allergy symptoms). Symptoms are relieved by inhaler use, rest and oral steroids. Associated symptoms include allergy symptoms, while associated symptoms do not incl ude fever or upper respiratory infection symptoms. Current treatment includes inhaled albuterol, inhaled long-acting beta-2 agonists, inhaled corticosteroids (dulera 200/5 2 puffs bid) and leukotriene m odifiers. Bronchodilator use is becoming less frequent. By report there is good compliance with treatment, good tolerance of treatment and fair symptom control. Pertinent medical history includes other pulmonary disease (has sleep apnea, using auto titrating cpap now with better response. pressures are more comfortable), allergic rhinitis and gastroesophageal reflux. Encounter Diagnosis: ASTHMA (Renamed from AIRWAY HYPERREACTIVITY), OBSTRUCTIVE SLEEP APNEA, OBESITY (Renamed from OBESE), ALLERGIC RHINITIS, GASTROESOPHAGEAL REFLUX DISEASE Annotation/Addendum 19-Dec-2013 12:52 To 19-Dec-2013 13:09 Encounter Diagnosis: ASTHMA (Renamed from AIRWAY HYPERREACTIVITY) [facility] Office Visit 19-Dec-2013 11:58 To 19-Dec-2013 13:17 Encounter Reason: ASTHMA, FOLLOW UP - The last clinic visit was 7 month(s) ago (primary is Dr. Lorraine Brown, seeing [facility] Office Dr. Ceja). No changes in management were made at the last visit. The patient's asthma causes daytime symptoms most days. The patient's asthma is not disturbing sleep. Symptoms include chest tightnes s, shortness of breath (increased) and productive cough (clear mucous), while symptoms do not include wheezing, non-productive cough or chest pain. The patient describes the difficulty breathing as ches t tightness and dyspnea on exertion. The patient describes this as worsening ( started to have increased symptoms in september, dyspnea/wheeze/cough with dark mucous. was seen by box toe maker and given zpac and 5 days of oral steroids. she noticed 55% improvement but now symptoms have just lingered, especially chest tightness). Symptoms are exacerbated by activity (also allergy symptoms). Symptoms are relieve d by inhaler use, rest and oral steroids. Associated symptoms include allergy symptoms, while associated symptoms do not include fever or upper respiratory infection symptoms. Current treatment includes inhaled albuterol, inhaled long-acting beta-2 agonists, inhaled corticosteroids (dulera 200/5 2 puffs bid) and leukotriene modifiers. Bronchodilator use is becoming more frequent. By report there is go od compliance with treatment, good tolerance of treatment and fair symptom control. Pertinent medical history includes other pulmonary disease (has sleep apnea, using auto titrating cpap now with better response. pressures are more comfortable), allergic rhinitis and gastroesophageal reflux. Encounter Diagnosis: ASTHMA (Renamed from [employer]), GASTROESOPHAGEAL REFLUX DISEASE, ALLERGIC RHINITIS, OBSTRUCTIVE SLEEP APNEA, OBESITY (Renamed from OBESE) Office Visit 22-Apr-2013 9:32 To 22-Apr-2013 10:49 Encounter Reason: ASTHMA, FOLLOW UP - The last clinic visit was 6 month(s) ago (primary is Dr. Lorraine Brown, seeing [facility] Office Dr. Ceja). No changes in management were made at the last visit. The patient's asthma causes daytime symptoms 1 to 2 times per month (even less). The patient's asthma is not disturbing sleep. Sympto ms include shortness of breath (occ with exertion) and non-productive cough, while symptoms do not include wheezing, chest tightness, productive cough or chest pain. The patient describes the difficulty breathing as dyspnea on exertion. The patient describes this as unchanged. Symptoms are exacerbated by activity (also allergy symptoms). Symptoms are relieved by inhaler use and rest. Associated sympto ms include allergy symptoms, while associated symptoms do not include fever or upper respiratory infection symptoms. Current treatment includes inhaled albuterol, inhaled long-acting beta-2 agonists, in haled corticosteroids (dulera 200/5 2 puffs bid) and leukotriene modifiers. Bronchodilator use is staying the same. By report there is good compliance with treatment, good tolerance of treatment and goo d symptom control. Pertinent medical history includes other pulmonary disease ( has sleep apnea, using auto titrating cpap now with better response. pressures are more comfortable), allergic rhinitis and gastroesophageal reflux. Encounter Diagnosis: ASTHMA (Renamed from [employer]RE[employer]IVITY), OBSTRUCTIVE SLEEP APNEA, ALLERGIC RHINITIS, OBESITY ( Renamed from OBESE) Medication Order 16-Oct-2012 16:24 To 17-Oct-2012 9:08 Encounter Diagnosis: ASTHMA (Renamed from AIRWAY [employer]PERREACTIVITY) [facility] Office Office Visit 16-Oct-2012 14:23 To 16-Oct-2012 15:32 Encounter Reason: ASTHMA, FOLLOW UP - The last clinic visit was 6 month(s) ago (primary is Dr. Lorraine Brown, seeing [facility] Office Dr. Ceja). No changes in management were made at the last visit. The patient's asthma causes daytime symptoms 1 to 2 times per month (even less). The patient's asthma is not disturbing sleep. Sympto ms include shortness of breath (occ with exertion) and non-productive cough, while symptoms do not include wheezing, chest tightness, productive cough or chest pain. The patient describes the difficulty breathing as dyspnea on exertion. The patient describes this as improving. Symptoms are exacerbated by activity (also allergy symptoms). Symptoms are relieved by inhaler use and rest. Associated sympto ms do not include fever, upper respiratory infection symptoms or allergy symptoms. Current treatment includes inhaled albuterol, inhaled long-acting beta -2 agonists, inhaled corticosteroids (dulera 200/ 5 2 puffs bid) and leukotriene modifiers. Bronchodilator use is staying the same. By report there is good compliance with treatment, good tolerance of treatment and good symptom control. Pertinent medic al history includes other pulmonary disease (has sleep apnea, using cpap every night. home care company is [employer] in [place]. a letter was reviewed from the home care [employer] that a recent down load showed an AHI of just over 6. patient did have a mask change and is using cpap regularly. still with occ problems with leak/comfort), allergic rhinitis and gastroesophageal reflux. Encounter Diagnosis: ASTHMA (493.90), GERD ( GASTROESOPHAGEAL REFLUX DISEASE) (530.81), ALLERGIC RHINITIS, CONG (OBSTRUCTIVE SLEEP APNEA) (327.23), OBESITY (Renamed from OBESE) Office Visit 18-Apr-2012 12:19 To 18-Apr-2012 13:47 Encounter Reason: ASTHMA, FOLLOW UP - The last clinic visit was 6 month(s) ago (primary is Dr. Lorraine Brown, [facility] Office Dr. Ceja). No changes in management were made at the last visit. The patient's asthma causes daytime symptoms 1 to 2 times per week. The patient's asthma is not disturbing sleep. Symptoms include wh eezing (occ), shortness of breath (occ with exertion, still better with the dulera) and productive cough (occ), while symptoms do not include chest tightness, non-productive cough or chest pain. The pat ient describes the difficulty breathing as dyspnea on exertion. The patient describes this as unchanged. Symptoms are exacerbated by activity (also allergy symptoms). Symptoms are relieved by inhaler us e and rest. Associated symptoms include allergy symptoms, while associated symptoms do not include fever or upper respiratory infection symptoms. Current treatment includes inhaled albuterol, inhaled lo ng-acting beta-2 agonists, inhaled corticosteroids (dulera 200/5 2 puffs bid) and leukotriene modifiers. Bronchodilator use is staying the same. By report there is good compliance with treatment, good t olerance of treatment and good symptom control. Pertinent medical history includes other pulmonary disease (has sleep apnea, using cpap every night), allergic rhinitis and gastroesophageal reflux. Encounter Diagnosis: ASTHMA (493.90), CONG ( OBSTRUCTIVE SLEEP APNEA) (327.23), OBESITY (278.00), ALLERGIC RHINITIS (477.9), GERD (GASTROESOPHAGEAL REFLUX DISEASE) (530.81) Medication Order 01-Apr-2012 16:43 To 01-Apr-2012 16:56 Encounter Diagnosis: CONG (OBSTRUCTIVE SLEEP APNEA) (327.23) [facility] Office Historical Summary 06-Feb-2012 13:14 To 06-Feb-2012 15:31 Encounter Diagnosis: ALLERGIC RHINITIS (477.9) [facility] Office Office Visit 17-Oct-2011 12:27 To 17-Oct-2011 13:13 Encounter Reason: Asthma Follow-up - The last office visit was 6 month(s) ago. No changes in management were made at [facility] e last visit. Symptoms do not include wheezing, chest tightness, shortness of breath, productive cough or non-productive cough. The patient describes this as improving (with weight loss). Symptoms are e xacerbated by activity. Symptoms are relieved by rest. Associated symptoms do not include fever or upper respiratory infection symptoms. Current treatment includes inhaled albuterol, inhaled long-acting beta-2 agonists, inhaled corticosteroids (dulera 200/5 mcg 2 puffs bid) and leukotriene modifiers. Bronchodilator use is becoming less frequent (hasn't needed since last visit). Denies recent hospitalization, [ADDITIONAL REASON] Sleep follow up - The sleep disorder is characterized as obstructive sleep apnea. The last office visit was 6 month(s) ago. No changes in management were made at the last visit. The patient gets approximately 8 hours of sleep per night. Current treatment includes CPAP therapy (with 20 lbs weight loss from last visit cpap pressure is too much, blowing mask off face. hasn't been abl e to wear in 2 months). By report there is good compliance with treatment ( except with recent pressure issue). Current symptoms include unrefreshing sleep. The patient describes this as worsening (d/t inability to wear). Encounter Diagnosis: ASTHMA (493.90), CONG ( OBSTRUCTIVE SLEEP APNEA) (327.23), GERD (GASTROESOPHAGEAL REFLUX DISEASE) ( 530.81), ALLERGIC RHINITIS (477.9), OBESITY (278.00) Historical Summary 18-Apr-2011 15:18 To 18-Apr-2011 15:20 [facility] Office Office Visit 18-Apr-2011 13:05 To 18-Apr-2011 14:21 Encounter Reason: Asthma Follow Up PHP - Symptoms include wheezing (much less), cough and mucous, while symptoms do not [facility] include dyspnea, rescue inhaler, chest tightness or infections. The last clinic visit was 2 month(s) ago. Management changes made at the last visit include adding astepro and clarinex and stopping naso nex. Current treatment includes inhaled short-acting beta-2 agonists, inhaled long-acting beta-2 agonists and inhaled corticosteroids. Pertinent medical history includes allergic rhinitis and gastroesop hageal reflux. The patient describes this as improving (improved from changes made at last office visit, allergies are better). By report there is good compliance with treatment. The patient is currentl y able to do activities of daily living without limitations, able to work without limitations and able to do housework without limitations. Hasn't been hospitalized. Hasn't needed rescue inhaler., [ADDITIONAL REASON] Sleep Follow Up PHP - The sleep disorder is characterized as obstructive sleep apnea. The last clinic visit was 2 month(s) ago. No changes in management were made at the last visit. The patient gets approximately 6 hours of sleep per night. Current treatment includes CPAP therapy. By report there is good compliance with treatment. Current symptoms do not include excessive daytime sleepiness, witnessed gasping during sleep, nocturnal choking, snoring or weight gain. Not falling sleep driving. 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 No issues with C PAP tolerance, but some discomfort at bridge of nose. May change mask. Has humidity on machine. Encounter Diagnosis: CONG (OBSTRUCTIVE SLEEP APNEA) (327.23), ASTHMA (493.90), OBESITY (278.00), ALLERGIC RHINITIS (477.9), GERD (GASTROESOPHAGEAL REFLUX DISEASE) (530.81) Historical Summary 18-Apr-2011 10:04 To 18-Apr-2011 11:17 [facility] Historical Summary 04-Apr-2011 17:39 To 04-Apr-2011 17:43 [facility] Payers Medicare [facility] [address] [facility] [id number] [place] Group Number: [id number] tel: BS of CN [address] [address] [facility] [id number] [place] Group Number: NONE tel: ALICIA BERGMAN [address] [facility] [address] [facility] [address] tel:
--- OUTSIDE RECORDS SUMMARY | 2019-09-18 10:38 | XMS REPORT | Continuity of Care Document ---
:1950 External Reference #:[id number] Author Name JOSE ALEJANDRO Keith Address [address] [place] [address] Care Team Providers Name Role Phone Lorraine Brown MD Care Team Information Engineering Operations Leader [phone] Problems Active Problems Provider Date Allergic asthma [...] 09/09/2019 10mg Tablets 30mg for 3 days, Uldrich, PROGRAM CHECKER-C 20 mg for 3 days, 10mg for 3 days and 5mg for 2 days Aerochamber Plus for use with mdi 2units Berta Dhaliwal, 09/04/2019 Chan-Vu PROGRAM CHECKER-C Misc Advair HFA inhale two puffs 12gm Юлия 08/13/2019 by mouth twice a MELL DasilvaP-C 230-21mcg/Act Aerosol day Ipratropium [place] use with nebulizer 75ml Юлия 08/05/2019 am&pm ISA Dasilva-C 0.02% Solution Xolair inject 225mg every 6units Юлия 08/05/2019 75mg/0.5ML Soln 2 weeks ISA Dasilva-C Prefill Syringe Azelastine HCL Bellevue One Bellevue 30units Berta Dhaliwal, 05/27/2019 (Nasal) Into Each Nostril PROGRAM CHECKER-C 137mcg/Bellevue Once In The Solution Morning And Once AT Night Levalbuterol HCL use via nebulizer 30ml Юлия 04/04/2019 every 4 -6 hours ISA Dasilva-C 1.25mg/3ML Nebulizer for shortness of breath, cough or wheezing Epipen 2-Elvin use as directed 2undre 07/30/2018 ISA Dasilva-C 0.3mg/0.3ML Solution Auto-Inject Cetirizine HCL 1 by mouth every 30tabs Jordana Maria, 08/28/2017 10mg day PROGRAM CHECKER-C Tablets Ventolin HFA 2 inhalations q4h 1units J45.40 Manan Farr, 10/15/2014 prn coughing or M.D. 108(90Base) mcg/Act wheezing Aerosol Fluticasone two sprays in each 1units Manan Farr, 06/10/2013 Propionate nostril once daily M.D. 50mcg/Act Suspension Allopurinol once a day Unknown 300mg Tablets Spiriva Respimat 2 inhalations once 1units J45.40 Юлия daily MELL DasilvaP-C 2.5mcg/Act Aerosol Furosemide 1 tabs every day Unknown 80mg Tablets Spironolactone 1/2 tablet daily Unknown 25mg Tablets Pantoprazole Sodium 1 tab daily. Unknown 40mg Tablets DR Bo M10 1 tab every day Unknown 10Meq Tablets ER Irbesartan 1 tab every day Unknown 75mg Tablets Aspirin Low Dose 1 every day Unknown 81mg Chewtabs Atorvastatin Calcium 1 every day Unknown Powder Singulair take 1 tablet by 30tabs Юлия 10mg Tablets mouth every day ISA Dasilva-C needs annual Levothyroxine Sodium 1 tab daily. Unknown 125mcg Tablets Medications Administered in Office Medication SIG Qnty Indications Ordering Provider Date Biologic Agent ISA Khan-C 09/04/2019 Administration Injection Biologic Agent Юлия Dasilva PROGRAM CHECKER-C 08/19/2019 Administration Injection Therapeutic, Prophylactic Or Nancy Ceja M.D. 08/19/2019 Diagnostic Injection Subq/Im Injection Biologic Agent Юлия Vidya PROGRAM CHECKER-C 08/05/2019 Administration Injection Therapeutic, Prophylactic Or Nancy Ceja M.D. 08/05/2019 Diagnostic Injection Subq/Im Injection Biologic Agent Юлия Vidya, PROGRAM CHECKER-C 07/09/2019 Administration Injection Therapeutic, Prophylactic Or Юлия Uldrich, PROGRAM CHECKER-C 07/09/2019 Diagnostic Injection Subq/Im Injection Biologic Agent Юлия Ulbharat, PROGRAM CHECKER-C 06/25/2019 Administration Injection Therapeutic, Prophylactic Or Юлия Uldrich, PROGRAM CHECKER-C 06/25/2019 Diagnostic Injection Subq/Im Injection Biologic Agent Юлия Uldrich, PROGRAM CHECKER-C 06/11/2019 Administration Injection Therapeutic, Prophylactic Or Юлия Uldrich, PROGRAM CHECKER-C 06/11/2019 Diagnostic Injection Subq/Im Injection Biologic Agent Юлия Uldrich, PROGRAM CHECKER-C 05/28/2019 Administration Injection Therapeutic, Prophylactic Or Юлия Uldrich, PROGRAM CHECKER-C 05/28/2019 Diagnostic Injection Subq/Im Injection Biologic Agent Юлия Uldrich, PROGRAM CHECKER-C 05/14/2019 Administration Injection Therapeutic, Prophylactic Or Юлия Uldrich, PROGRAM CHECKER-C 05/14/2019 Diagnostic Injection Subq/Im Injection Biologic Agent Юлия Uldrich, PROGRAM CHECKER-C 04/30/2019 Administration Injection Therapeutic, Prophylactic Or Юлия Uldrich, PROGRAM CHECKER-C 04/30/2019 Diagnostic Injection Subq/Im Injection Therapeutic, Prophylactic Or Юлия Uldrich, PROGRAM CHECKER-C 04/16/2019 Diagnostic Injection Subq/Im Injection Biologic Agent Юлия Uldrich, PROGRAM CHECKER-C 04/02/2019 Administration Injection Therapeutic, Prophylactic Or Юлия Uldrich, PROGRAM CHECKER-C 04/02/2019 Diagnostic Injection Subq/Im Injection Biologic Agent Юлия Uldrich, PROGRAM CHECKER-C 03/12/2019 Administration Injection Therapeutic, Prophylactic Or Юлия Uldrich, PROGRAM CHECKER-C 03/12/2019 Diagnostic Injection Subq/Im Injection Biologic Agent Юлия Uldrich, PROGRAM CHECKER-C 02/19/2019 Administration Injection Therapeutic, Prophylactic Or Юлия Uldrich, PROGRAM CHECKER-C 02/19/2019 Diagnostic Injection Subq/Im Injection Biologic Agent Юлия Uldrich, PROGRAM CHECKER-C 02/05/2019 Administration Injection Therapeutic, Prophylactic Or Юлия Uldrich, PROGRAM CHECKER-C 02/05/2019 Diagnostic Injection Subq/Im Injection Biologic Agent Юлия Uldrich, PROGRAM CHECKER-C 01/22/2019 Administration Injection Therapeutic, Prophylactic Or Юлия Uldrich, PROGRAM CHECKER-C 01/22/2019 Diagnostic Injection Subq/Im Injection Therapeutic, Prophylactic Or Юлия Uldrich, PROGRAM CHECKER-C 01/08/2019 Diagnostic Injection Subq/Im Injection Biologic Agent Юлия Uldrich, PROGRAM CHECKER-C 12/25/2018 Administration Injection Therapeutic, Prophylactic Or Nancy Ceja M.D. 12/25/2018 Diagnostic Injection Subq/Im Injection Biologic Agent Юлия Uldrich, PROGRAM CHECKER-C 12/11/2018 Administration Injection Therapeutic, Prophylactic Or Юлия Uldrich, PROGRAM CHECKER-C 12/11/2018 Diagnostic Injection Subq/Im Injection Biologic Agent Юлия Uldrich, PROGRAM CHECKER-C 11/26/2018 Administration Injection Therapeutic, Prophylactic Or Юлия Uldrich, PROGRAM CHECKER-C 11/26/2018 Diagnostic Injection Subq/Im Injection Biologic Agent Юлия Uldrich, PROGRAM CHECKER-C 11/13/2018 Administration Injection Therapeutic, Prophylactic Or Юлия Uldrich, PROGRAM CHECKER-C 11/13/2018 Diagnostic Injection Subq/Im Injection Biologic Agent Юлия Uldrich, PROGRAM CHECKER-C 10/30/2018 Administration Injection Therapeutic, Prophylactic Or Юлия Uldrich, PROGRAM CHECKER-C 10/30/2018 Diagnostic Injection Subq/Im Injection Biologic Agent Юлия Uldrich, PROGRAM CHECKER-C 10/16/2018 Administration Injection Therapeutic, Prophylactic Or Юлия Uldrich, PROGRAM CHECKER-C 10/16/2018 Diagnostic Injection Subq/Im Injection Biologic Agent Ania Eric, PROGRAM CHECKER-C 10/02/2018 Administration Injection Therapeutic, Prophylactic Or Ania Eric, PROGRAM CHECKER-C 10/02/2018 Diagnostic Injection Subq/Im Injection Biologic Agent Юлия Uldrich, PROGRAM CHECKER-C 09/18/2018 Administration Injection Therapeutic, Prophylactic Or Юлия Uldrich, PROGRAM CHECKER-C 09/18/2018 Diagnostic Injection Subq/Im Injection Biologic Agent Юлия Uldrich, PROGRAM CHECKER-C 09/04/2018 Administration Injection Therapeutic, Prophylactic Or Manan Farr M.D. 09/04/2018 Diagnostic Injection Subq/Im Injection Biologic Agent Юлия Uldrich, PROGRAM CHECKER-C 08/21/2018 Administration Injection Therapeutic, Prophylactic Or Nancy Ceja M.D. 08/21/2018 Diagnostic Injection Subq/Im Injection Biologic Agent Юлия Uldrich, PROGRAM CHECKER-C 08/07/2018 Administration Injection Therapeutic, Prophylactic Or Юлия Uldrich, PROGRAM CHECKER-C 08/07/2018 Diagnostic Injection Subq/Im Injection Celestone/Cortisone Leeanne Salamanca, 10/22/2014 [id number] 1 cc PH.D, RPA-C Injection Celestone/Cortisone Leeanne Salamanca, 10/13/2014 [id number] 1 cc PH.D, RPA-C Injection Injection Donovan Holliday M.D. 12/10/2012 Injection Injection Allergy Injection 12/10/2012 Injection Injection Allergy Injection 11/26/2012 Injection Injection Allergy Injection 11/12/2012 Injection Injection Donovan Holliday M.D. 10/29/2012 Injection Injection Allergy Injection 10/29/2012 Injection Injection Donovan Mg, CarloDRickie 10/15/2012 Injection Injection Allergy Injection 10/15/2012 Injection Injection Donovan Carlo HollidayDRickie 10/01/2012 Injection Injection Donovan Holliday, CarloDRickie 09/17/2012 Injection Injection Carlo NathDRickie 08/20/2012 Injection Injection Donovan Holliday M.D. 07/30/2012 Injection Injection Nancy Ceja M.D. 07/09/2012 Injection Injection Nancy Ceja M.D. 06/18/2012 Injection Injection Nancy M Myrna Ceja 05/28/2012 Injection Injection Nancy M Myrna Ceja 05/14/2012 Injection Injection Nancy Ceja M.D. 04/23/2012 Injection Injection Nancy Ceja M.D. 04/09/2012 Injection Injection Nancy M Myrna Ceja 03/26/2012 Injection Injection Nancy Ceja M.D. 03/12/2012 Injection Injection Nancy Ceja M.D. 02/27/2012 Injection Injection Nancy M Myrna Ceja 02/13/2012 Injection Injection Nancy M Myrna Ceja 01/30/2012 Injection Injection Nancy Ceja M.D. 01/16/2012 Injection Injection Nancy Ceja M.D. 01/02/2012 Injection Injection Nancy M Myrna Ceja 12/19/2011 Injection Injection Nancy M Myrna Ceja 12/05/2011 Injection Injection Nancy Ceja M.D. 11/28/2011 Injection Injection Nancy Ceja M.D. 11/14/2011 Injection Injection Nancy Ceja M.D. 10/31/2011 Injection Injection Nancy Ceaj M.D. 10/17/2011 Injection Injection Nancy Ceja M.D. 10/03/2011 Injection Injection Donovan Holliday M.D. 09/19/2011 Injection Injection Donovan Mg, M.DRickie 09/05/2011 Injection Injection Manan Chika, M.DRickie 07/06/2011 Injection Injection Donovan Mg, M.DRickie 06/22/2011 Injection Injection Donovan Mg, M.D. 06/08/2011 Injection Injection Donovan Mg, M.D. 05/25/2011 Injection Injection Donovan Mg, M.D. 05/04/2011 Injection Injection Donovan Mg, M.D. 04/11/2011 Injection Injection Donovan Mg, M.D. 03/28/2011 Injection Injection Donovan Mg, M.DRickie 03/16/2011 Injection Injection Donovan Mg, M.DRickie 03/02/2011 Injection Injection Donovan Mg, M.D. 02/09/2011 Injection Injection Donovan Mg, M.D. 01/17/2011 Injection Injection Donovan Mg, M.D. 12/20/2010 Injection Injection Donovan Mg, M.DRickie 12/06/2010 Injection Injection Donovan Mg, M.D. 11/22/2010 Injection Injection Donovan Mg, M.D. 11/10/2010 Injection Injection Donovan Mg, M.DRickie 10/25/2010 Injection Injection Donovan Mg, M.D. 10/11/2010 Injection Injection Donovan Mg, M.D. 09/20/2010 Injection Injection Donovan Mg, M.D. 08/23/2010 Injection Injection Donovan Mg, M.D. 07/26/2010 Injection Injection Donovan Mg, M.D. 06/28/2010 Injection Injection Donovan Mg, M.D. 05/31/2010 Injection Injection Donovan Mg, M.D. 05/03/2010 Injection Injection Donovan Mg, M.DRickie 04/19/2010 Injection Injection Donovan Mg, M.DRickie 04/05/2010 Injection Injection Donovan Mg, M.DRickie 03/22/2010 Injection Injection Donovan Mg, M.DRickie 03/01/2010 Injection Injection Nancy Ceja M.D. 02/15/2010 Injection Injection Donovan Mg, M.D. 02/01/2010 Injection Injection Donovan Mg, M.DRickie 01/18/2010 Injection Injection Donovan Mg, M.DRickie 01/04/2010 Injection Injection Donovan Mg, M.D. 12/21/2009 Injection Injection Donovan Mg, M.DRickie 12/09/2009 Injection Injection Donovan Mg, M.DRickie 11/23/2009 Injection Injection Donovan Mg, M.DRickie 11/09/2009 Injection Injection Donovan Mg, M.DRickie 10/26/2009 Injection Injection Donovan Mg, M.DRickie 10/12/2009 Injection Injection Donovan Mg, M.DRickie 09/28/2009 Injection Injection Donovan Mg, M.DRickie 09/14/2009 Injection Injection Nancy Ceja M.D. 08/24/2009 Injection Injection Christopher Mares, 08/12/2009 Injection M.DRickie Injection Donovan Mg, CarloDRickie 07/29/2009 Injection Injection Donovan Mg, M.DRickie 07/13/2009 Injection Injection Christopher Mares, 07/01/2009 Injection M.DRickie Injection Donovan Mg, MRickieDRickie 06/15/2009 Injection Injection Donovan Mg, CarloDRickie 06/01/2009 Injection Injection Donovan Mg, M.DRickie 05/18/2009 [...] Mg, M.DRickie 12/24/2008 Injection Injection Donovan Mg, MEileen 12/10/2008 Injection Injection Donovan Mg, M.DRickie 12/03/2008 Injection Injection Donovan Mg, M.DRickie 11/24/2008 Injection Injection Donovan Mg, M.DRickie 11/19/2008 Injection Injection Donovan Mg, M.DRickie 11/12/2008 Injection Injection Donovan Mg, M.DRickie 11/03/2008 Injection Injection Donovan Mg, M.DRickie 10/15/2008 Injection Injection Donovan Mg, M.DRickie 10/01/2008 Injection Injection Donovan Mg, M.DRickie 09/17/2008 Injection Injection Donovan Mg, CarloDRickie 09/03/2008 Injection Injection Donovan Mg, M.DRickie 08/20/2008 Injection Injection Donovan Mg, M.DRickie 08/06/2008 Injection Injection Donovan Mg, Alesha.DRickie 07/14/2008 Injection Injection Donovan Mg, Myrna 07/02/2008 Injection Injection Donovan Mg, CarloDRickie 06/16/2008 Injection Injection Donovan Mg, Alesha.DRickie 06/11/2008 Injection Injection Donovan Mg, Myrna 06/04/2008 Injection Injection Donovan Mg, CarloDRickie 05/28/2008 Injection Injection Donovan Mg, MRickieDRickie 05/21/2008 Injection Injection Donovan Mg, M.DRickie 05/14/2008 Injection Injection Donovan Mg, Myrna 05/07/2008 Injection Injection Donovan Mg, Alesha.DRickie 04/30/2008 Injection Injection Donovan Mg, M.DRickie 04/23/2008 Injection Injection Donovan Mg, M.DRickie 04/16/2008 Injection Injection Donovan Mg, MRickieDRickie 04/09/2008 Injection Injection Donovan Mg, MRickieDRickie 04/02/2008 Injection Injection Donovan Mg, M.DRickie 03/26/2008 Injection Injection Donovan Mg, M.DRickie 03/19/2008 Injection Injection Donovna Mg, Myrna 03/12/2008 Injection Injection Donovan Mg, MEileen 03/05/2008 Injection Injection Donovanmaritza Holliday M.D. 02/27/2008 Injection Injection Donovan Myrna Holliday 02/20/2008 Injection Injection Donovan Myrna Holliday 02/13/2008 Injection Injection Donovan Mg, Myrna 02/04/2008 Injection Injection Donovan Myrna Holliday 01/30/2008 Injection Injection Donovanmaritza Holliday M.D. 01/23/2008 Injection Injection Donovan Myrna Holliday 01/16/2008 Injection Injection Donovan Mg, Myrna 01/09/2008 Injection Injection Donovan Myrna Holliday 01/02/2008 Injection Injection Donovan Myrna Holliday 12/26/2007 Injection Injection Donovan Myrna Holliday 12/19/2007 Injection Injection Donovanmaritza Holliday M.D. 12/12/2007 Injection Injection Donovan Holliday M.D. 12/03/2007 Injection Injection Donovan Holliday M.D. 11/26/2007 Injection Injection Donovan Holliday M.D. 11/19/2007 Injection Immunizations CPT Code Status Date Vaccine Lot # 06980 Given 04/22/2013 Influenza Vaccine 80433 Given 07/23/2010 Pneumococcal Vaccine 22944 Given Unknown Pneumococcal Vaccine 50813 Given Unknown Influenza Vaccine 76257 Given Unknown Influenza Vaccine 65710 Given Unknown Influenza Vaccine 89467 Given Unknown Influenza Vaccine 10693 Given Unknown Influenza Vaccine Vital Signs Date [...] Available Procedures Date Code Description Status 09/04/2019 53858 Biologic Agent Administration Completed 09/04/2019 62524 Ippb Completed 08/19/2019 50181 Biologic Agent Administration Completed 08/19/2019 12178 Therapeutic, Prophylactic Or Diagnostic Injection Subq/Im Completed 08/05/2019 48388 Biologic Agent Administration Completed 08/05/2019 02417 Therapeutic, Prophylactic Or Diagnostic Injection Subq/Im Completed 08/05/2019 80003 Ippb Completed 07/09/2019 99415 Biologic Agent Administration Completed 07/09/2019 46008 Therapeutic, Prophylactic Or Diagnostic Injection Subq/Im Completed 06/25/2019 90886 Biologic Agent Administration Completed 06/25/2019 35269 Therapeutic, Prophylactic Or Diagnostic Injection Subq/Im Completed 06/25/2019 90656 Ippb Completed 06/11/2019 50453 Therapeutic, Prophylactic Or Diagnostic Injection Subq/Im Completed 06/11/2019 47626 Biologic Agent Administration Completed 05/28/2019 93884 Biologic Agent Administration Completed 05/28/2019 26108 Therapeutic, Prophylactic Or Diagnostic Injection Subq/Im Completed 05/14/2019 08959 Biologic Agent Administration Completed 05/14/2019 13510 Therapeutic, Prophylactic Or Diagnostic Injection Subq/Im Completed 04/30/2019 26753 Biologic Agent Administration Completed 04/30/2019 81791 Therapeutic, Prophylactic Or Diagnostic Injection Subq/Im Completed 04/16/2019 42769 Therapeutic, Prophylactic Or Diagnostic Injection Subq/Im Completed 04/02/2019 53659 Biologic Agent Administration Completed 04/02/2019 78505 Therapeutic, Prophylactic Or Diagnostic Injection Subq/Im Completed 03/12/2019 68843 Biologic Agent Administration Completed 03/12/2019 80413 Therapeutic, Prophylactic Or Diagnostic Injection Subq/Im Completed Medical Devices Description No Information Available Encounters Type Date Location Provider Dx Diagnosis Office Visit 03/12/2019 [facility] Юлия Dasilva J45.50 Severe persistent 11:20a PROGRAM CHECKER-C asthma, uncomplicated J30.1 Allergic rhinitis due to [...] J45.51 Severe persistent asthma with (acute) Юлия Uldrich, PROGRAM CHECKER -C exacerbation 09/09/2019 J30.81 Allergic rhinitis due to animal (cat) (dog) Юлия Uldrich, PROGRAM CHECKER-C hair and dander 09/09/2019 J30.89 Other allergic rhinitis Юлия Uldrich, PROGRAM CHECKER-C 09/09/2019 J30.1 Allergic rhinitis due to pollen Юлия Uldrich, PROGRAM CHECKER-C 09/04/2019 J45.51 Severe persistent asthma with (acute) Nancy Ceja M.D. exacerbation 09/04/2019 J45.51 Severe persistent asthma with (acute) Berta Dhaliwal, PROGRAM CHECKER-C exacerbation 09/04/2019 J20.9 Acute bronchitis, unspecified Berta Dhaliwal, PROGRAM CHECKER-C 08/19/2019 J45.50 Severe persistent asthma, uncomplicated Nancy Ceja M.D. 08/19/2019 J45.50 Severe persistent asthma, uncomplicated Nancy Ceja M.D. 08/19/2019 J45.50 Severe persistent asthma, uncomplicated Юлия Uldrich, PROGRAM CHECKER-C 08/19/2019 J30.2 Other seasonal allergic rhinitis Nancy Ceja M.D. 08/19/2019 J30.2 Other seasonal allergic rhinitis Юлия Uldrich, PROGRAM CHECKER-C 08/19/2019 J30.81 Allergic rhinitis due to animal (cat) (dog) Nancy Ceja M.D. hair and dander 08/19/2019 J30.81 Allergic rhinitis due to animal (cat) (dog) Юлия Uldrich, PROGRAM CHECKER-C hair and dander 08/19/2019 J30.89 Other allergic rhinitis Nancy Ceja M.D. 08/19/2019 J30.89 Other allergic rhinitis Юлия Uldrich, PROGRAM CHECKER-C 08/19/2019 J30.1 Allergic rhinitis due to pollen Юлия Uldrich, PROGRAM CHECKER-C 08/05/2019 J45.50 Severe persistent asthma, uncomplicated Nancy Ceja M.D. 08/05/2019 J45.50 Severe persistent asthma, uncomplicated Юлия Uldrich, PROGRAM CHECKER-C 08/05/2019 J30.2 Other seasonal allergic rhinitis Nancy Ceja M.D. 08/05/2019 J30.2 Other seasonal allergic rhinitis Юлия Uldrich, PROGRAM CHECKER-C 08/05/2019 J30.81 Allergic rhinitis due to animal (cat) (dog) Nancy Ceja M.D. hair and dander 08/05/2019 J30.81 Allergic rhinitis due to animal (cat) (dog) Юлия Uldrich, PROGRAM CHECKER-C hair and dander 08/05/2019 J30.89 Other allergic rhinitis Nancy Ceja M.D. 08/05/2019 J30.89 Other allergic rhinitis Юлия Uldrich, PROGRAM CHECKER-C 08/05/2019 J30.1 Allergic rhinitis due to pollen Юлия Uldrich, PROGRAM CHECKER-C 07/09/2019 J45.50 Severe persistent asthma, uncomplicated Юлия Uldrich, PROGRAM CHECKER-C 07/09/2019 J30.2 Other seasonal allergic rhinitis Nancy Ceja M.D. 07/09/2019 J30.2 Other seasonal allergic rhinitis Юлия Uldrich, PROGRAM CHECKER-C 07/09/2019 J30.81 Allergic rhinitis due to animal (cat) (dog) Nancy Ceja M.D. hair and dander 07/09/2019 J30.81 Allergic rhinitis due to animal (cat) (dog) Юлия Uldrich, PROGRAM CHECKER-C hair and dander 07/09/2019 J30.89 Other allergic rhinitis Nancy Ceja M.D. 07/09/2019 J30.89 Other allergic rhinitis Юлия Uldrich, PROGRAM CHECKER-C 07/09/2019 J30.1 Allergic rhinitis due to pollen Nancy Ceja M.D. 07/09/2019 J30.1 Allergic rhinitis due to pollen Юлия Uldrich, PROGRAM CHECKER-C 06/25/2019 J45.50 Severe persistent asthma, uncomplicated Юлия Uldrich, PROGRAM CHECKER-C 06/25/2019 J45.50 Severe persistent asthma, uncomplicated Nancy Ceja M.D. 06/25/2019 J30.2 Other seasonal allergic rhinitis Юлия Uldrich, PROGRAM CHECKER-C 06/25/2019 J45.50 Severe persistent asthma, uncomplicated Юлия Uldrich, PROGRAM CHECKER-C 06/25/2019 J30.81 Allergic rhinitis due to animal (cat) (dog) Юлия Uldrich, PROGRAM CHECKER-C hair and dander 06/25/2019 J30.2 Other seasonal allergic rhinitis Nancy Ceja M.D. 06/25/2019 J30.89 Other allergic rhinitis Юлия Uldrich, PROGRAM CHECKER-C 06/25/2019 J30.2 Other seasonal allergic rhinitis Юлия Uldrich, PROGRAM CHECKER-C 06/25/2019 J30.81 Allergic rhinitis due to animal (cat) (dog) Nancy Ceja M.D. hair and dander 06/25/2019 J30.81 Allergic rhinitis due to animal (cat) (dog) Юлия Uldrich, PROGRAM CHECKER-C hair and dander 06/25/2019 J30.89 Other allergic rhinitis Nancy Ceja M.D. 06/25/2019 J30.89 Other allergic rhinitis Юлия Uldrich, PROGRAM CHECKER-C 06/25/2019 J30.1 Allergic rhinitis due to pollen Юлия Uldrich, PROGRAM CHECKER-C 06/11/2019 J45.50 Severe persistent asthma, uncomplicated Юлия Uldrich, PROGRAM CHECKER-C 06/11/2019 J45.50 Severe persistent asthma, uncomplicated Nancy Ceja M.D. 06/11/2019 J45.50 Severe persistent asthma, uncomplicated Юлия Uldrich, PROGRAM CHECKER-C 06/11/2019 J30.2 Other seasonal allergic rhinitis Nancy Ceja M.D. 06/11/2019 J30.2 Other seasonal allergic rhinitis Юлия Uldrich, PROGRAM CHECKER-C 06/11/2019 J30.81 Allergic rhinitis due to animal (cat) (dog) Nancy Ceja M.D. hair and dander 06/11/2019 J30.81 Allergic rhinitis due to animal (cat) (dog) Юлия Uldrich, PROGRAM CHECKER-C hair and dander 06/11/2019 J30.89 Other allergic rhinitis Nancy Ceja M.D. 06/11/2019 J30.89 Other allergic rhinitis Юлия Uldrich, PROGRAM CHECKER-C 06/11/2019 J30.1 Allergic rhinitis due to pollen Юлия Uldrich, PROGRAM CHECKER-C 05/28/2019 J45.50 Severe persistent asthma, uncomplicated Юлия Uldrich, PROGRAM CHECKER-C 05/28/2019 J45.50 Severe persistent asthma, uncomplicated Nancy Ceja M.D. 05/28/2019 J45.50 Severe persistent asthma, uncomplicated Юлия Uldrich, PROGRAM CHECKER-C 05/28/2019 J30.2 Other seasonal allergic rhinitis Nancy Ceja M.D. 05/28/2019 J30.2 Other seasonal allergic rhinitis Юлия Uldrich, PROGRAM CHECKER-C 05/28/2019 J30.81 Allergic rhinitis due to animal (cat) (dog) Nancy Ceja M.D. hair and dander 05/28/2019 J30.81 Allergic rhinitis due to animal (cat) (dog) Юлия Uldrich, PROGRAM CHECKER-C hair and dander 05/28/2019 J30.89 Other allergic rhinitis Nancy Ceja M.D. 05/28/2019 J30.89 Other allergic rhinitis Юлия Uldrich, PROGRAM CHECKER-C 05/28/2019 J30.1 Allergic rhinitis due to pollen Юлия Uldrich, PROGRAM CHECKER-C 05/14/2019 J45.50 Severe persistent asthma, uncomplicated Юлия Uldrich, PROGRAM CHECKER-C 05/14/2019 J30.2 Other seasonal allergic rhinitis Юлия Uldrich, PROGRAM CHECKER-C 05/14/2019 J30.81 Allergic rhinitis due to animal (cat) (dog) Юлия Uldrich, PROGRAM CHECKER-C hair and dander 05/14/2019 J30.89 Other allergic rhinitis Юлия Uldrich, PROGRAM CHECKER-C 05/14/2019 J30.1 Allergic rhinitis due to pollen Юлия Uldrich, PROGRAM CHECKER-C 04/30/2019 J45.50 Severe persistent asthma, uncomplicated Юлия Uldrich, PROGRAM CHECKER-C 04/30/2019 J45.50 Severe persistent asthma, uncomplicated Nancy Ceja M.D. 04/30/2019 J45.50 Severe persistent asthma, uncomplicated Юлия Uldrich, PROGRAM CHECKER-C 04/30/2019 J30.2 Other seasonal allergic rhinitis Nancy Ceja M.D. 04/30/2019 J30.2 Other seasonal allergic rhinitis Юлия Uldrich, PROGRAM CHECKER-C 04/30/2019 J30.81 Allergic rhinitis due to animal (cat) (dog) Nancy Ceja M.D. hair and dander 04/30/2019 J30.81 Allergic rhinitis due to animal (cat) (dog) Юлия Uldrich, PROGRAM CHECKER-C hair and dander 04/30/2019 J30.89 Other allergic rhinitis Nancy Ceja M.D. 04/30/2019 J30.89 Other allergic rhinitis Юлия Uldrich, PROGRAM CHECKER-C 04/16/2019 J45.50 Severe persistent asthma, uncomplicated Юлия Uldrich, PROGRAM CHECKER-C 04/16/2019 J45.50 Severe persistent asthma, uncomplicated Nancy Ceja M.D. 04/16/2019 J45.50 Severe persistent asthma, uncomplicated Юлия Uldrich, PROGRAM CHECKER-C 04/16/2019 J30.1 Allergic rhinitis due to pollen Nancy Ceja M.D. 04/16/2019 J30.1 Allergic rhinitis due to pollen Юлия Ulich, PROGRAM CHECKER-C 04/16/2019 J30.2 Other seasonal allergic rhinitis Nancy Ceja M.D. 04/16/2019 J30.2 Other seasonal allergic rhinitis Юлия Uldrich, PROGRAM CHECKER-C 04/16/2019 J30.81 Allergic rhinitis due to animal (cat) (dog) Nancy Ceja M.D. hair and dander 04/16/2019 J30.81 Allergic rhinitis due to animal (cat) (dog) Юлия Uldrich, PROGRAM CHECKER-C hair and dander 04/16/2019 J30.89 Other allergic rhinitis Юлия Uldrich, PROGRAM CHECKER-C 04/02/2019 J45.50 Severe persistent asthma, uncomplicated Юлия Uldrich, PROGRAM CHECKER-C 04/02/2019 J45.50 Severe persistent asthma, uncomplicated Nancy Ceja M.D. 04/02/2019 J45.50 Severe persistent asthma, uncomplicated Юлия Uldrich, PROGRAM CHECKER-C 04/02/2019 J30.1 Allergic rhinitis due to pollen Nancy Ceja M.D. 04/02/2019 J30.1 Allergic rhinitis due to pollen Юлия Uldrich, PROGRAM CHECKER-C 04/02/2019 J30.2 Other seasonal allergic rhinitis Nancy Ceja M.D. 04/02/2019 J30.2 Other seasonal allergic rhinitis Юлия Uldrich, PROGRAM CHECKER-C 04/02/2019 J30.81 Allergic rhinitis due to animal (cat) (dog) Nancy Ceja M.D. hair and dander 04/02/2019 J30.81 Allergic rhinitis due to animal (cat) (dog) Юлия Uldrich, PROGRAM CHECKER-C hair and dander 04/02/2019 J30.89 Other allergic rhinitis Nancy Ceja M.D. 04/02/2019 J30.89 Other allergic rhinitis Юлия Uldrich, PROGRAM CHECKER-C 03/12/2019 J45.50 Severe persistent asthma, uncomplicated Юлия Uldrich, PROGRAM CHECKER-C 03/12/2019 J45.50 Severe persistent asthma, uncomplicated Nancy Ceja M.D. 03/12/2019 J30.1 Allergic rhinitis due to pollen Юлия Uldrich, PROGRAM CHECKER-C 03/12/2019 J45.50 Severe persistent asthma, uncomplicated Юлия Uldrich, PROGRAM CHECKER-C 03/12/2019 J30.2 Other seasonal allergic rhinitis Юлия Uldrich, PROGRAM CHECKER-C 03/12/2019 J30.1 Allergic rhinitis due to pollen Nancy Ceja M.D. 03/12/2019 J30.81 Allergic rhinitis due to animal (cat) (dog) Юлия Uldrich, PROGRAM CHECKER-C hair and dander 03/12/2019 J30.1 Allergic rhinitis due to pollen Юлия Uldrich, PROGRAM CHECKER-C 03/12/2019 J30.2 Other seasonal allergic rhinitis Nancy Ceja M.D. 03/12/2019 J30.2 Other seasonal allergic rhinitis Юлия Uldrich, PROGRAM CHECKER-C 03/12/2019 J30.81 Allergic rhinitis due to animal (cat) (dog) Nancy Ceja M.D. hair and dander 03/12/2019 J30.81 Allergic rhinitis due to animal (cat) (dog) JOSE ALEJANDRO Keith hair and dander 03/12/2019 J30.89 Other allergic rhinitis JOSE ALEJANDRO Keith Plan of Treatment 09/09/2019 - ISA Keith-CJ45.51 Severe persistent asthma with (acute) bqyveqlrhqdpL91.81 Allergic rhinitis due to animal (cat) (dog) hair and jpuyakC09.89 Other allergic htfkftxoY47.1 Allergic rhinitis due to pollenNew Medication:Prednisone 10 mgRecommendations:Continue all medications as prescribed.Refrain from wearing perfumes/scented colognes while visitingour office. Give Prednisone 60mg today then Start the Prednisone tomorrow OK for Xolair( 225 mg every 2 weeks) today Continue the Dulera 2 puffs twice a day Continue the Spiriva 1.25 mcg 2 puffs daily Continue the Azelestine 2 sprays daily Continue the fluticasone nasal spray daily Continue the cetirizine 1 daily Continue the montelukast 1 daily Continue the Ventolin 2 puffs every 4 hours as needed for cough, shortness of breath, chest tightness, shortness of breath, wheezing, or chest congestion. Xolair in 2 weeks Functional Status Description No Information Available Mental Status Description No Information Available Referrals Description No Information Available
--- OUTSIDE RECORDS SUMMARY | 2019-09-18 10:39 | XMS REPORT | Continuity of Care Document ---
:1950 Author Name Mini Bar Attendant, System Address Unavailable Unavailable , Care Team Providers Name Role Phone Stephanie BAUTISTA, Lorraine Unavailable Unavailable Bishnu Elias DO Unavailable Estella BAUTISTA, Ray Unavailable Luz BAUTISTA, Shaw Unavailable Rafia Lanza DO Unavailable Derek Huang MD Unavailable Marcial BAUTISTA, Nancy Eduardo Unavailable Arya BEATING MACHINE OPERATOR, Mitali Unavailable Unavailable Celi MSN, NPC, Joy Unavailable Jsoe BEATING MACHINE OPERATOR, Kacey Unavailable Unavailable PROCESS TECHNICIAN Preload, PROCESS TECHNICIAN Unavailable Unavailable Zia BEATING MACHINE OPERATOR, Jazmin Unavailable Unavailable Adela MAGANA, Carroll Unavailable Unavailable Joel BEATING MACHINE OPERATOR, Naila Unavailable Unavailable More LRT, Bereket Unavailable Unavailable Unavailable Unavailable Problems ALLERGIC RHINITIS [...] 11 FLONASE, 50MCG/ACT (Nasal Suspension); 1 (one) Tyaskin two times daily, each nostril for 30 days Ordered: 30-Dec-2015 Start: 30-Dec-2015 Quantity: 1 {Tyaskin} ROMELIA Alatorre NPC Jillian Refills: 11 KLOR-CON [...] Ordered: 2016 Start: 15-Jan-2017 Quantity: 30 {Tablet} ROMELIA Alatorre NPC Jillian Refills: 11 ALENDRONATE SODIUM, [...] 2016 Start: 30-Dec-2015 End: 20-Apr-2017 Quantity: 1 {Tyaskin} ROMELIA Alatorre NPC Jillian Status: Inactive Refills: [...] Inactive MCG/ACT) VITAMIN D (ERGOCALCIFEROL), End: 17-Oct-2011 [id number] (Oral Capsule); Status: Inactive weekly (98925 UNIT) ZETIA, 10MG (Oral Tablet); Status: Inactive [...] NITRIC OXIDE MEASUREMENT Status: Completed 31-Mar-2019 (MOLES/VOLUME) (47000) EXHALED GAS NITRIC OXIDE MEASUREMENT Status: Completed 20-Sep-2018 (MOLES/VOLUME) (42381) RESPIRATORY FLOW VOLUME LOOP (03401) Status: Completed 05-Feb-2018 AIRFLOW RESISTANCE MEASUREMENT: PULM FUNCT Status: Completed 31-Jul-2017 TEST OSCILLOMETRY (39714) TOTAL VITAL CAPACITY (48136) Status: Completed 31-Jul-2017 TOTAL BODY PLETHYSMOGRAPHY: AIRWAY CLOSING Status: Completed 31-Jul-2017 VOLUME MEASUREMENT: PULM FUNCT TST PLETHYSMOGRAP (55567) RESPIRATORY FLOW VOLUME LOOP (08795) Status: Completed 31-Jul-2017 THORACIC GAS VOLUME: AIRWAY CLOSING VOLUME Status: Completed 31-Jul-2017 MEASUREMENT: PULM FUNCTION TEST BY GAS (59719) DLCO (CARBON MONOXIDE DIFFUSING CAPACITY) Status: Completed 31-Jul-2017 (12686) PRE AND POST (72155) Status: Completed 31-Jul-2017 REST/ EXERCISE OXIMETRY (34083) Status: Completed 06-Jun-2017 RESPIRATORY FLOW VOLUME LOOP (68576) Status: Completed 06-Jun-2017 TOTAL VITAL CAPACITY (03894) Status: Completed 20-Apr-2017 TOTAL BODY PLETHYSMOGRAPHY (92290) Status: Completed 20-Apr-2017 TGV THORACIC GAS VOLUME: AIRWAY CLOSING Status: Completed 20-Apr-2017 VOLUME MEASUREMENT: PULM FUNCTION TEST BY GAS (22014) RESPIRATORY FLOW VOLUME LOOP (70890) Status: Completed 20-Apr-2017 DLCO (CARBON MONOXIDE DIFFUSING CAPACITY) Status: Completed 20-Apr-2017 (70559) AIRFLOW RESISTANCE MEASUREMENT: PULM FUNCT Status: Completed 20-Apr-2017 TEST OSCILLOMETRY (17457) PRE AND POST (19683) Status: Completed 20-Apr-2017 RESPIRATORY FLOW VOLUME LOOP (61332) Status: Completed 05-Jul-2016 PRE AND POST (53239) Status: Completed 05-Jul-2016 AIRFLOW RESISTANCE MEASUREMENT: PULM FUNCT Status: Completed 30-Dec-2015 TEST OSCILLOMETRY (78579) TOTAL VITAL CAPACITY (22516) Status: Completed 30-Dec-2015 TOTAL BODY PLETHYSMOGRAPHY: AIRWAY CLOSING Status: Completed 30-Dec-2015 VOLUME MEASUREMENT: PULM FUNCT TST PLETHYSMOGRAP (40302) RESPIRATORY FLOW VOLUME LOOP (96477) Status: Completed 30-Dec-2015 THORACIC GAS VOLUME: AIRWAY CLOSING VOLUME Status: Completed 30-Dec-2015 MEASUREMENT: PULM FUNCTION TEST BY GAS (73288) DLCO (CARBON MONOXIDE DIFFUSING CAPACITY) Status: Completed 30-Dec-2015 (22726) PRE AND POST (60399) Status: Completed 30-Dec-2015 SIMPLE PFT: BASELINE PULMONARY FUNCTION Status: Completed 28-May-2015 TEST (PFT) (69393) RESPIRATORY FLOW VOLUME LOOP (14050) Status: Completed 28-May-2015 RESPIRATORY FLOW VOLUME LOOP (81518) Status: Completed 27-Oct-2014 PRE AND POST W/ RT (59168) Status: Completed 27-Oct-2014 RESPIRATORY FLOW VOLUME LOOP (77292) Status: Completed 27-Apr-2014 PRE AND POST (42623) Status: Completed 27-Apr-2014 REST/EXERCISE OXIMETRY (60521) Status: Completed 19-Dec-2013 ACT: ASSESSMENT OF DISEASE: ASTHMA Status: Cancelled 19-Dec-2013 SYMPTOMS EVALUATE (1005F) RESPIRATORY FLOW VOLUME LOOP (51580) Status: Completed 19-Dec-2013 PRE AND POST (85787) Status: Completed 19-Dec-2013 PRE AND POST (54793) Status: Completed 18-Apr-2012 EXERCISE OXIMETRY (40262) Status: Completed 18-Apr-2012 RESPIRATORY FLOW VOLUME LOOP (23882) Status: Completed 18-Apr-2012 Adenoidectomy Status: Completed 1955 [...] Tonsillectomy Status: Completed 1955 PRE AND POST (61047)Result: Hemoptysis: No Status: Completed 31-Mar-2019 PRE AND POST (04787)Result: Hemoptysis: No Status: Completed 20-Sep-2018 PRE AND POST (46199)Result: Hemoptysis: No Status: Completed 05-Feb-2018 CT THORAX W/O DYE (87205)Result: Are you or Status: Completed 2017 could you become ?: No; When was you last CXR/CT?: over week ago; Loading Dock Helper: FLAKO Gallardo PRE AND POST (20323)Result: Hemoptysis: No Status: Completed 06-Jun-2017 CHEST X-RAY, PA AND LATERAL (52320)Result: Are you Status: Completed 2016 or could you become ?: No; When was you last CXR/CT?: over week ago; Loading Dock Helper: FLAKO Gallardo CHEST X-RAY, PA AND LATERAL (31662)Result: Are you Status: Completed 2015 or could you become ?: No; When was you last CXR/CT?: OVER WEEK AGO; Loading Dock Helper: FLAKO Gallardo ACT: ASSESSMENT OF DISEASE: ASTHMA [...] Score] Score: 25 RESPIRATORY FLOW VOLUME LOOP (03326)Result: Date: 18-Apr-2011 Hemoptysis: No; Medication Used: Albuterol 0.083% nate aerosol; Injector Assembler: Carroll Chapman RRT Immunizations Influenza (3 years [...] 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 Tobacco use: Former smoker. Comments: max 3 ppd; 13-38 Former smoker Female Plan of Treatment AIRFLOW RESISTANCE MEASUREMENT: Start: 29-Sep-2019 Intent PULM FUNCT TEST OSCILLOMETRY (38523) CXR PA & LAT (61234) Start: 29-Sep-2019 Intent DLCO (CARBON MONOXIDE DIFFUSING Start: 29-Sep-2019 Intent CAPACITY) (00214) EXHALED GAS NITRIC OXIDE Start: 29-Sep-2019 Intent MEASUREMENT (MOLES/VOLUME) (30495) PRE AND POST (82865) Start: 29-Sep-2019 Intent THORACIC GAS VOLUME: AIRWAY CLOSING Start: 29-Sep-2019 Intent VOLUME MEASUREMENT: PULM FUNCTION TEST BY GAS (93251) TOTAL VITAL CAPACITY (45341) Start: 29-Sep-2019 Intent EXHALED NITRIC OXIDE MEASUREMENT Start: 05-Feb-2018 Intent (25688) Comments: Evaluated patient's nitric oxide. The results were 14 ppb REST OXIMETRY (76381) Start: 31-Jul-2017 Intent EXHALED NITRIC OXIDE MEASUREMENT Start: 31-Jul-2017 Intent (01894) Comments: next visit EXHALED NITRIC OXIDE MEASUREMENT Start: 31-Jul-2017 Intent (84516) Comments: Evaluated patient's nitric oxide. The results were 5 ppb. REST OXIMETRY (27875) Start: 05-Jul-2016 Intent ACT: ASSESSMENT OF DISEASE: ASTHMA Start: 05-Jul-2016 Intent SYMPTOMS EVALUATE (1005F) RESPIRATORY FLOW VOLUME LOOP Start: 20-Jan-2014 Intent (85566) PRE AND POST (94917) Start: 20-Jan-2014 Intent RESPIRATORY FLOW VOLUME LOOP Start: 22-Apr-2013 Intent (93153) PRE AND POST (27865) Start: 22-Apr-2013 Intent RESPIRATORY FLOW VOLUME LOOP Start: 16-Oct-2012 Intent (00977) REST OXIMETRY (22291) Start: 16-Oct-2012 Intent PRE AND POST (51983) Start: 16-Oct-2012 Intent REST/EXERCISE OXIMETRY (49692) Start: 17-Oct-2011 Intent RESPIRATORY FLOW VOLUME LOOP Start: 17-Oct-2011 Intent (86741) Pre/Post (25439) Start: 17-Oct-2011 Intent Pre/Post (29789) Start: 18-Apr-2011 Intent Medical; CHEST X-RAY - CXR- SCRIPT NEEDS TO BE FAXED TO [facility] Start: 2019 10:15 Appointment [facility]; FULL PFT 30 - DLCO Start: 24-Sep-2019 11:00 Appointment Request [facility]; FOLLOW UP 30 - 6 mnth fu, Full, DLCO, CXR Start: 24-Sep-2019 11: 30 Appointment Request [facility] Celi, MSN, NPC Joy ASTHMA-COPD OVERLAP SYNDROME : FU EITHER - [...] from AIRWAY HYPERREACTIVITY) : Change Qvar dosing- environmental solutions engineer wanted 2 puffs mid day Indication:ASTHMA (Renamed from AIRWAY HYPERREACTIVITY) GASTROESOPHAGEAL REFLUX DISEASE : Avoid triggers Indication:GASTROESOPHAGEAL REFLUX DISEASE OBESITY (Renamed from OBESE) : Weight loss may help Indication:OBESITY (Renamed from OBESE) ASTHMA (Renamed from AIRWAY HYPERREACTIVITY) : [facility] up at [facility] Indication:ASTHMA (Renamed from AIRWAY HYPERREACTIVITY) ASTHMA (Renamed [...] Obtain CXR and CT chest reports from [facility] Indication:ASTHMA (Renamed from AIRWAY HYPERREACTIVITY) ASTHMA (Renamed [...] from AIRWAY HYPERREACTIVITY) : FU EITHER - patient Indication:ASTHMA (Renamed from AIRWAY HYPERREACTIVITY) ALLERGIC RHINITIS : Start sinus rinses Indication:ALLERGIC RHINITIS ASTHMA (Renamed from AIRWAY HYPERREACTIVITY) : FU EITHER - patient Indication:ASTHMA (Renamed from AIRWAY HYPERREACTIVITY) ASTHMA (Renamed from AIRWAY HYPERREACTIVITY) : Influenza vaccine seasonally - current Indication:ASTHMA (Renamed from AIRWAY HYPERREACTIVITY) ASTHMA (Renamed from AIRWAY HYPERREACTIVITY) : FU EITHER - patient Indication:ASTHMA (Renamed from AIRWAY HYPERREACTIVITY) ASTHMA [...] SLEEP APNEA OBSTRUCTIVE SLEEP APNEA : Discussed moth exterminator use Indication:OBSTRUCTIVE SLEEP APNEA OBSTRUCTIVE SLEEP APNEA [...] ago. Management changes made at the last [facility] Office it include none (tried dose [...] and omalizumab (Xolair) (started jul 2018 with environmental solutions engineer, q 2 week dosing). Bronchodilator use is [...] CPAP therapy (home care company is in [place] Current symptoms do not include excessive daytime [...] ago. Management changes made at the last [facility] Office it include stopping qvar. The [...] describes this as improving (started xolair with environmental solutions engineer 6 weeks ago, already noticing benefit with [...] and omalizumab (Xolair) (started jul 2018 with environmental solutions engineer). Bronchodil ator use is becoming less frequent (hasn't needed). By report there is good compliance with treatment, good tolerance of treatment and good symptom control. Pertinent medical history includes other pulm onary disease (has sleep apnea, using auto titrating cpap at bedtime. home care company is [employer]. more rested with cpap), allergic rhinitis and [...] No changes in management were made at [facility] Office he last visit. The patient's asthma [...] cpap at bedtime. home care company is [employer]), allergic rhinitis and gastroesophageal reflux. The patient [...] Encounter Diagnosis: ASTHMA (Renamed from AIRWAY HYPERREACTIVITY) [facility] Office Office Visit 31-Jul-2017 12:51 To 31-Jul-2017 13:18 Encounter Reason: ASTHMA, FOLLOW UP - The last clinic visit was 2 month(s) ago. Management changes made at the last vis [facility] Office it include none (Increase Spiriva respimat [...] ago. Management changes made at the last [facility] Office it include none (Increase Spiriva [...] 4 hrs with some benefit). By r bertha there is good compliance with treatment, good tolerance of treatment and fair symptom control. Pertinent medical history includes other pulmonary disease (has sleep apnea, using auto titrating cpa p now. home care company is [employer]. sleeps better on cpap and uses it [...] Encounter Diagnosis: ASTHMA (Renamed from AIRWAY HYPERREACTIVITY) [facility] Office Radiology 31-Jul-2017 10:02 To 31-Jul-2017 10:20 Encounter Diagnosis: PLEURAL EFFUSION, LEFT [facility] Office Visit 06-Jun-2017 10:26 To 06-Jun-2017 12:43 Encounter Reason: ASTHMA, FOLLOW UP - The last clinic visit was 2 month(s) ago. Management changes made at the last [facility] Office it include none (with increased coughing since last visit. has been on abx and oral steroids (once each) with some benefit. still not back to baseline. started qvar 2 puff daily also with benefit. takin g meds for reflux and allergy. working with environmental solutions engineer as well. will be having blood work [...] titrating cpap now. home care company is [place] [employer] sleeps better on cpap and uses it [...] ago (primary is Dr. Lorraine Brown. also [facility] Office eing Dr. Flowers in [place]). No changes in management were made at [...] titrating cpap now. home care company is [employer]. sleeps better on cpap and uses it [...] ALLERGIC RHINITIS, GASTROESOPHAGEAL REFLUX DISEASE Order Only 14-Dec-2016 15:51 To 05-Jul-2016 15:52 Encounter Diagnosis: ASTHMA (Renamed from AIRWAY HYPERREACTIVITY) [facility] Historical Summary 05-Jul-2016 11:50 To 05-Jul-2016 11:51 [facility] Historical Summary 05-Jul-2016 11:30 To 05-Jul-2016 11:31 Encounter Reason: ASTHMA, FOLLOW UP - The last clinic visit was 6 month(s) ago (primary is Dr. Lorraine Brown, seeing [facility] Dr. Nancy Ceja, and Dr. [...] titrating cpap now. home care company is [employer]), allergic rhinitis and gastroesophageal reflux. The patient [...] ago (primary is Dr. Lorraine Brown, seeing [facility] Office Dr. Nancy Ceja, and Dr. Derek [...] titrating cpap now. home care company is [employer]), allergic rhinitis and ga stroesophageal reflux. The [...] month(s) ago (primary is Dr. Lorraine Brown, [facility] Office Dr. Nancy Ceja, and Dr. Derke Huang). No changes in management were made [...] and leukotriene modifiers. Bronchodilator use is staying th same (hasn't needed). By report there is good compliance with treatment, good tolerance of treatment and fair symptom control. Pertinent medical history includes other pulmonary disease (has sleep port engineer ea, using auto titrating cpap now. home care company is [employer]), allergic rhinitis and gastroesophageal reflux. The patient [...] ago (primary is Dr. Lorraine Brown, seeing [facility] Dr. Nancy Ceja, and Dr. [...] use all night. home care company is [email or web address]), allergic rhinitis and gastroesophageal reflux. The patient [...] ago (primary is Dr. Lorraine Brown, seeing [facility] Dr. Ceja). No changes in management were made at the last visit. The patient's asthma causes daytime symptoms most days (just recently with acute sinusitis. has seen environmental solutions engineer and is on second cours e of [...] use all night. home care company is [email or web address]), allergic rhinitis and gastroesophageal reflux. T he [...] ago (primary is Dr. Lorraine Brown, seeing [facility] Dr. Ceja). Management changes made [...] cath in february with 2 stents. no DE. she is in cardiac rehab. she does [...] ago (primary is Dr. Lorraine Brown, seeing [facility] Dr. Ceja). Management changes made [...] Encounter Diagnosis: ASTHMA (Renamed from AIRWAY HYPERREACTIVITY) [facility] Office Visit 19-Dec-2013 11:58 To 19-Dec-2013 13:17 Encounter Reason: ASTHMA, FOLLOW UP - The last clinic visit was 7 month(s) ago (primary is Dr. Lorraine Brown, seeing [facility] Dr. Ceja). No changes in management [...] dyspnea/wheeze/cough with dark mucous. was seen by environmental solutions engineer and given zpac and 5 days of [...] month(s) ago (primary is Dr. Lorraine Brown, [facility] Office Dr. Ceja). No changes in [...] Encounter Diagnosis: ASTHMA (Renamed from AIRWAY HYPERREACTIVITY) [facility] Office Office Visit 16-Oct-2012 14:23 To 16-Oct-2012 15:32 Encounter Reason: ASTHMA, FOLLOW UP - The last clinic visit was 6 month(s) ago (primary is Dr. Lorraine Brown, seeing [facility] Dr. Ceja). No changes in management [...] cpap every night. home care company is [facility] [employer] in [place]. a letter was reviewed from the home care company that a recent down load showed an [...] ago (primary is Dr. Lorraine Brown, seeing [facility] Dr. Ceja). No changes in management [...] Encounter Diagnosis: CONG (OBSTRUCTIVE SLEEP APNEA) (327.23) [facility] Office Historical Summary 06-Feb-2012 13:14 To 06-Feb-2012 15:31 Encounter Diagnosis: ALLERGIC RHINITIS (477.9) [facility] Office Office Visit 17-Oct-2011 12:27 To 17-Oct-2011 13:13 Encounter Reason: Asthma Follow-up - The last office visit was 6 month(s) ago. No changes in management were made at [facility] e last visit. Symptoms do not include [...] Historical Summary 18-Apr-2011 15:18 To 18-Apr-2011 15:20 [facility] Office Office Visit 18-Apr-2011 13:05 To 18-Apr-2011 14:21 Encounter Reason: Asthma Follow Up PHP - Symptoms include wheezing (much less), cough and mucous, while symptoms do not [facility] Office include dyspnea, rescue inhaler, chest tightness [...] gain. Not falling sleep driving. Vendor is [employer] and she is going to be getting new supplies this week. No issues with C PAP tolerance, but some discomfort at bridge of nose. May change mask. Has humidity on machine. Encounter Diagnosis: CONG (OBSTRUCTIVE SLEEP APNEA) (327.23), ASTHMA (493.90), OBESITY (278.00), ALLERGIC RHINITIS (477.9), GERD (GASTROESOPHAGEAL REFLUX DISEASE) (530.81) Historical Summary 18-Apr-2011 10:04 To 18-Apr-2011 11:17 [facility] Historical Summary 04-Apr-2011 17:39 To 04-Apr-2011 17:43 [facility] Payers [place] [address] [facility] [id number] [place] Group Number: NONE tel: BS of [facility] [address] [address] [place] [address] [place] Group Number: NONE tel: ALICIA BERGMAN [address] [address] tel:
--- OUTSIDE RECORDS SUMMARY | 2019-09-18 10:39 | XMS REPORT | Continuity of Care Document ---
:1950 External Reference #:[id number] Author Name Lorraine Brown MD Address [address] [place] [address] Care Team Providers Name Role Phone Sonia Garcia MD - Cardiovascular Care Team Information Desizing Machine Operator Head End Disease [facility] Care Team Information Desizing Machine Operator Head End [phone] MD Luz, Shaw - Nephrology Care Team Information Desizing Machine Operator Head End [phone] Rafia Lanza DO - Hematology & Care Team Information Desizing Machine Operator Head End [phone] Oncology Mariam Mares MD - Cardiovascular Care Team Information Desizing Machine Operator Head End [phone] Disease Renetta Brenner - Gastroenterology Care Team Information Desizing Machine Operator Head End Derek Huang MD - Care Team Information Desizing Machine Operator Head End [phone] Cardiovascular Disease Nelsy Rodriges - Gastroenterology Care Team Information Desizing Machine Operator Head End [facility] - Physical Care Team Information Desizing Machine Operator Head End Therapy Damien Felipe MD Care Team Information Desizing Machine Operator Head End [phone] Baudilio Sauceda MD - Vascular Care Team Information Desizing Machine Operator Head End Surgery Manan Farr MD - Allergy & Immunology Care Team Information Desizing Machine Operator Head End [phone] Bishnu Elias DO - Pulmonary Care Team Information Desizing Machine Operator Head End Disease Adonis Marcus DR - Hematology & Care Team Information Desizing Machine Operator Head End [phone] - Otolaryngology Care Team Information Desizing Machine Operator Head End Problems Active Problems Provider Date Proteinuria Lorraine Brown MD Onset: 05/05/2014 Coronary arteriosclerosis Lorraine Brown MD Onset: 05/05/2014 Hypothyroidism Lorraine Brown MD Onset: 03/24/2011 Obstructive sleep apnea syndrome Lorraine Brown MD Onset: 09/29/2010 Allergic rhinitis due to pollen Lorraine Brown MD Onset: 04/12/2010 Candidiasis of skin and nails Lorraine Brown MD Onset: 04/12/2010 Senile hyperkeratosis Lorraine Brown MD Onset: 07/25/2007 Allergic asthma without status asthmaticus Lorraine Brown MD Onset: 2006 Vitamin D deficiency Lorraine Brown MD Onset: 03/07/2006 Osteochondropathy Lorraine Brown MD Onset: 03/07/2006 Liver function tests abnormal Lorraine Brown MD Onset: 11/06/2005 Helicobacter pylori Lorraine Brown MD Onset: 11/06/2005 Carotid artery occlusion Lorraine Brown MD Onset: 11/06/2005 Aortic valve disorder Lorraine Brown MD Onset: 04/06/2005 Benign neoplasm of colon Lorraine Brown MD Onset: 04/04/2005 Melena Lorraine Brown MD Onset: 04/04/2005 Benign essential hypertension Lorraine Brown MD Onset: 09/30/2004 Mixed hyperlipidemia Lorraine Brown MD Onset: 09/30/2004 Type 2 diabetes mellitus Lorraine Brown MD Onset: 09/30/2004 Pure hypercholesterolemia Onset: 08/22/2014 Osteoporosis Lorraine Brown MD Onset: 09/04/2014 Chronic kidney disease stage 3 Lorraine Brown MD Onset: 03/31/2015 Essential hypertension Lorraine Brown MD Onset: 06/15/2015 Mitral valve disorder Lorraine Brown MD Onset: 06/15/2015 Ulcerative colitis Lorraine Brown MD Onset: 06/15/2015 Atherosclerotic heart disease of [place] Lorraine Brown MD Onset: 2014 coronary artery without angina pectoris Sinus node dysfunction Lorraine Brown MD Onset: 09/08/2015 Sleep apnea Lorraine Brown MD Onset: 09/08/2015 Type 2 diabetes mellitus with diabetic Lorraine Brown MD Onset: 09/08/2015 polyneuropathy Diabetes mellitus due to underlying condition Lorraine Brown MD Onset: with mild nonproliferative diabetic retinopathy without macular edema Gout Lorraine Brown MD Onset: 09/08/2015 Ex-smoker Lorraine Brown MD Onset: 03/22/2016 Uncomplicated moderate persistent asthma Lorraine Brown MD Onset: 2016 Diabetes mellitus Lorraine Brown MD Onset: 04/05/2018 Heart valve replacement Lorraine Brown MD Onset: 04/05/2018 Chronic diastolic heart failure Lorraine Brown MD Onset: 04/05/2018 Congenital anomaly of peripheral blood vessel Lorraine Brown MD Onset: Allergic rhinitis Lorraine Brown MD Onset: 04/05/2018 Morbid obesity Lorraine Brown MD Onset: 04/05/2018 Mild nonproliferative diabetic retinopathy Lorraine Brown MD Onset: 2017 Cardiac pacemaker in situ Lorraine Brown MD Onset: 10/16/2018 Social History Type Date Description Comments Sex Unknown ETOH Use Occasionally consumes alcohol Tobacco Use Start: 07/23/61 Patient is a former 10/02/16 started age End: 07/23/84 smoker 12, started as a few per day, gradually built, by adult was 1ppd , smoked up to 2.5 ppd for at least 3-4 years, quit 1984. [place] eligible for lung [place] [facility] [place] - Followup: CPX MCR Well Smoking Status Reviewed: Patient is a former 10/02/16 started age 0310/16/18 smoker 12, started as a few per day, gradually built, by adult was 1ppd , smoked up to 2.5 ppd for at least 3-4 years, quit 1984. Not eligible for lung cancer screening[place] [facility] [place]: 10[place]02[place]16 - Followup: CPX MCR Well Exercise Exercises sporadically counselled 150min per Type/Frequency week 88839 steps per day 10/02/16 Allergies, Adverse Reactions, Alerts Active Allergies Reaction Severity Comments Date Penicillin Rash 09/04/2014 Latex 11/01/2016 Feldene Blisters 09/04/2014 Penicillin G 07/18/2016 Dogs 09/04/2014 Milk-Related Compounds 04/14/2015 Pollen 09/04/2014 Pollen Extract 04/14/2015 Piroxicam Rash Mild 03/05/2014 Penicillins Hives, Rash Mild 03/05/2014 Dust 07/19/2018 Environmental 07/19/2018 Trees 07/19/2018 Mold 04/21/2019 Medications Active Medications SIG Qnty Indications Ordering Provider Date Furosemide 1 by mouth 30tabs N18.3 Lorraine Brown, 04/21/2019 40mg Tablets every day in MD the morning(instead of 80mg daily) I10 Allopurinol 1 by mouth every 30tabs M10.9 Lorraine Brown MD 10/16/2018 300mg Tablets day Atorvastatin Calcium take 1 tablet by 30tabs E78.2 Lorraine Brown MD 20mg mouth every day Tablets I25.10 Potassium Chloride ER take 1 tablet by 30tabs I10 Lorraine Brown MD 10Meq mouth daily with Tablets ER lasix Spiriva Respimat 2 puffs in the J45.40 Manan Farr MD 10/21/2017 2.5mcg/Act morning Aerosol Levothyroxine Sodium take 1 tablet 30tabs E03.9 Lorraine Brown MD 04/04 125mcg daily in the Tablets morning on an empty stomach. no medications/ food for 30 minutes Fluticasone Propionate use 2 sprays in J30.9 Manan Farr MD 03/29/2017 each nostril 50mcg/Act Suspension daily Pantoprazole Sodium take 1 tablet by 30tabs D62 Lorraine Brown MD 10/02 40mg mouth every day Tablets DR 30min before a meal I25.10 Accu-Chek Belkis Plus test daily and as 100units E11.8 Lorraine Brown, needed MD Strips Accu-Chek Belkis test daily and as 1units E11.8 Lorraine Brown, 2015 Connect directed w/Device Kit Vitamin D3 1 by mouth daily 90tabs E55.9 Lorraine Brown, 06/21/2016 1000Unit with dinner with Tablets meat fat oil Nystatin wash and dry 45gm B37.2 Lorraine Brown, 03/22/2016 [id number]/GM skin, apply 3 MD Cream times a day to affected areas until resolved Quentin Microlet Lancets test daily and as 100units E11.8 Lorraine Brown, 11/25/2015 needed MD Mckenna Vitamin C 1 by mouth with 30units D50.9 Lorraine Brown, 06/02/2015 500mg Chewtabs iron Multivitamins 1 by mouth every Lorraine Brown, 06/02/2015 Capsules day Irbesartan take 1 tablet by 30tabs I25.10 Lorraine Brown, 04/30/2015 75mg Tablets mouth every day at bedtime I10 Apap care with G47.30 Lorraine Brown MD 09/04/2014 Device carlos Montelukast Sodium 1 po qhs 28tabs J30.9 Manan Farr MD 03/31/2010 10mg Tablets Ventolin HFA 2 puffs by mouth 1units J45.40 Bishnu Elias, 108mcg/Act every 4 hours as Aerosol needed Pataday one drop each J30.9 Nate Eid, 0.2% Solution eye every day M.D. Spironolactone 1 tablet by I25.10 Derek Huang, 25mg Tablets mouth every day I10 Aspirin Low Dose chew 81 mg daily E08.329 Lorraine Brown MD 81mg Chewtabs I25.10 Azelastine HCL (Nasal) 1-2 sprays into each J30.9 Manan Farr MD 0.1% nostril 2 (two) Solution times a day Use in each nostril as directed Clindamycin HCL 2 PO 1 Hour Prior To Z95.2 Derek Huang MD 300mg Dental Procedures. Capsules Xolair inject 225mg every 2 J45.40 Unknown 75mg/0.5ML Soln weeks Prefill Syringe Dulera 2 puff twice a day J45.40 Unknown 100-5mcg/Act Aerosol Levalbuterol HCL Inhale [address] J45.40 Unknown 1.25mg/3ML Nebulizer Every 4 To Nebulizer 6 Hours For Shortness Of Breath, Cough Or Wheeze Medications Administered in Office Medication SIG Qnty Indications Ordering Provider Date Gentamicin <80 MG Schedule, Nurses 2017 Injection Depo Medrol 40 MG Lorraine Brown MD 12/24/2015 Injection Immunizations CPT Code Status Date Vaccine Reaction Lot # [id number] Given 04/11/2019 Influenza Vac, Quadrivalent, Split, 0.5mL Dosage, [place] Use 27659 Given 04/18/2018 Influenza Virus Vaccine,Quadrivalent,Split,Preser v Free, 0.5mL,Im Q2035 Given 04/18/2017 Afluria Imunization Given At Pharmacy 23986 Given 04/14/2016 Influenza Virus Vaccine,Quadrivalent,Split,Preser v Free, 0.5mL,Im 41266 Given 06/04/2015 Influenza Virus Vaccine,Quadrivalent,Split,Preser v Free, 0.5mL,Im 03888 Given 06/02/2015 Prevnar 13 Pneumococal Conjugate [id number] Vaccine 74092 Given 09/09/2014 Zoster (Zostavax) 46703 Given 05/05/2014 Pneumococcal 23 Immunization Adult Or Immunosuppressed Patient 98971 Given 04/22/2014 Influenza Virus Vaccine,Quadrivalent,Split,Preser v Free, 0.5mL,Im 46366 Given 03/31/2014 Influenza Intranasal Vaccine, Live Virus 31029 Given 06/28/2012 Afluria Or Fluvirin Flu Vac Intramuscular 30467 Given 06/10/2012 Tdap (Adacel) Ages 7 And Above ADACEL Only 81043 Given 02/29/2012 Pneumococcal 23 Immunization Adult Or Immunosuppressed Patient 50179 Given 03/24/2011 Afluria Or Fluvirin Flu Vac Intramuscular 06022 Given 05/09/2010 Afluria Or Fluvirin Flu Vac Intramuscular 47750 Given 07/25/2007 Pneumococcal 23 Immunization Adult Or Immunosuppressed Patient 26888 Given 06/01/2004 Tetanus And Diptheria Toxoid 7 Years And Older Preserv Free 93124 Given 05/11/1999 Pneumococcal 23 Immunization Adult Or Immunosuppressed Patient 29990 Refused 07/25/2019 Shingrix (Shingles) Zoster AWARE CAN GET AT PHARMACY Vaccine HZV, Recombinant, Subunit, Adj 65039 Refused 04/21/2019 Shingrix (Shingles) Zoster aware needs in 2020 Vaccine HZV, Recombinant, Subunit, Adj 99370 Refused 04/05/2018 Shingrix (Shingles) Zoster not due until 2019 Vaccine HZV, Recombinant, Subunit, Adj Q2039 Refused 04/05/2018 Flu Vaccine NOS will get at free clinic on 04/18 Vital Signs Date Vital Result Comment 07/25/2019 10:04am Weight 238.00 lb Heart Rate 76 /min BP Systolic 142 mmHg BP Diastolic 86 mmHg Respiratory Rate 20 /min Height 64.5 inches 5'4.50" BMI (Body Mass Index) 40.2 kg/m2 04/21/2019 2:34pm Body Temperature 97.1 F Weight 241.00 lb Heart Rate 70 /min BP Systolic 138 mmHg BP Diastolic 88 mmHg Respiratory Rate 20 /min Height 64.5 inches 5'4.50" O2 % BldC Oximetry 99 % ra BMI (Body Mass Index) 40.7 kg/m2 Results Test Acquired Date Facility Test Result H/L Range Note Hemoglobin A1c 07/18/2019 [facility] Hemoglobin A1c 5.6 % 4.1-5.9 Estimated Average Glucose Calc 114 mg/dL 71-140 Laboratory test finding 07/18/2019 [facility] TSH 2.53 uIU/mL 0.35-4.94 Lipid 07/18/2019 [facility] Cholesterol 159 mg/dL 50-199 Triglycerides 199 mg/dL 30-200 HDL 43 mg/dL 35-85 1 Chol/ HDL Ratio 3.7 ratio 3.7-5.6 VLDL 40 mg/dL High 2-29 LDL (Calc) 76 mg/dL 20-99 2 Laboratory test finding 07/18/2019 [facility] CPK 109 U/L 12-199 Uric Acid 5.4 mg/dL 2.6-7.6 Comprehensive Met Panel-[facility] 07/18/2019 [facility] Sodium 142 mmol/L 135- 146 3 Potassium 4.2 mmol/L 3.5-5.2 Chloride# 104 mmol/L 97-110 4 Carbon Dioxide 26 mmol/L 24-34 Calcium 8.9 mg/dL 8.5-10.5 5 Glucose 111 mg/dL High 70-105 BUN 47 mg/dL High 6-26 Creatinine 2.2 mg/dL High 0.5-1.4 Total Protein 6.2 g/dL 6.0-8.0 Albumin 4.1 g/dL 3.6-4.9 Globulin 2.1 g/dL 2.0-3.5 A/G Ratio 2.0 Ratio 1.0-2.2 Total Bilirubin 0.4 mg/dL 0.1-1.3 Alkaline Phosphatase 122 U/L 24-140 Alt 19 U/L 3-42 Ast 20 U/L 8-42 Anion Gap 12 mmol/L 5-15 6 Female Egfr 22 Low >60 7 Male Egfr 29 Low >60 8 CBC With Auto Diff 07/18/2019 [facility] WBC 8.1 K/uL 4.1-11.0 9 RBC 3.72 M/uL Low 4.00-5.40 10 Hemoglobin 11.6 gm/dL Low 12.0-16.0 11 Hematocrit 35.9 % Low 36.0-47.0 12 MCV 96.5 fL High 80.0-95.0 13 MCH 31.3 pg 27.0-32.0 14 MCHC 32.4 g/dL 32.0-36.0 15 RDW 22.3 % High 10.5-14.5 16 PLT Count 196 K/ul 150-400 17 MPV 8.7 FL 7.1-10.7 Manual Differential 07/18/2019 [facility] Neutrophils 73 % 35-75 Band 0 % 0-11 Lymphocytes 18 % 16-52 Monocytes 7 % 0-8 Eosinophils 2 % 0-5 Basophils 0 % 0-4 Abs Neutrophils# 5.9 K/ul 1.8-7.7 Abs Lymphocytes# 1.5 K/ul 1.2-4.8 Abs Monocytes# 0.6 K/ul 0.0-0.8 Abs Eosinophils# 0.2 K/ul 0.0-0.5 Abs Basophils# 0.0 K/ul 0.0-0.3 Abs BandCells# 0.0 K/ul 0.0-1.2 Anisocytosis 3 None Seen Macrocytosis 2 None Seen Microcytosis 1 None Seen Platelet Estimate NORMAL Normal RBC Morphology ABNORMAL Abnormal Normal Iron Panel 07/18/2019 [facility] Iron, Total 40 g/dL Low 50-170 Transferrin 214.0 mg/dL 203.0-362.0 Tibc (calc) 300 g/dL 261-478 % Iron Saturation 13.4 % 13.0-45.0 Hemoglobin A1c 04/11/2019 [facility] Hemoglobin A1c 6.1 % High 4.1-5.9 Estimated Average Glucose Calc 128 mg/dL 71-140 Laboratory test finding 04/11/2019 [facility] TSH 0.69 uIU/mL 0.35-4.94 Lipid 04/11/2019 [facility] Cholesterol 140 mg/dL 50-199 Triglycerides 186 mg/dL 30-200 HDL 35 mg/dL 35-85 18 Chol/ HDL Ratio 4.1 ratio 3.7-5.6 VLDL 37 mg/dL High 2-29 LDL (Calc) 68 mg/dL 20-99 19 Laboratory test finding 04/11/2019 [facility] CPK 64 U/L 12-199 Uric Acid 5.2 mg/dL 2.6-7.6 Comprehensive Met Panel-[facility] 04/11/2019 [facility] Sodium 131 mmol/L Low 135 -146 20 Potassium 4.4 mmol/L 3.5-5.2 Chloride# 92 mmol/L Low 97-110 21 Carbon Dioxide 25 mmol/L 24-34 Calcium 9.0 mg/dL 8.5-10.5 22 Glucose 111 mg/dL High 70-105 BUN 44 mg/dL High 6-26 Creatinine 2.4 mg/dL High 0.5-1.4 Total Protein 6.0 g/dL 6.0-8.0 Albumin 3.7 g/dL 3.6-4.9 Globulin 2.3 g/dL 2.0-3.5 A/G Ratio 1.6 Ratio 1.0-2.2 Total Bilirubin 0.4 mg/dL 0.1-1.3 Alkaline Phosphatase 109 U/L 24-140 Alt 13 U/L 3-42 Ast 15 U/L 8-42 Anion Gap 14 mmol/L 5-15 23 Female Egfr 20 Low >60 24 Male Egfr 27 Low >60 25 CBC With Auto Diff 04/11/2019 [facility] WBC 6.5 K/uL 4.1-11.0 RBC 3.23 M/uL Low 4.00-5.40 Hemoglobin 9.8 gm/dL Low 12.0-16.0 Hematocrit 30.2 % Low 36.0-47.0 MCV 93.4 fL 80.0-97.0 MCH 30.3 pg 27.0-32.0 MCHC 32.4 g/dL 32.0-36.0 RDW 17.5 % High 11.5-14.5 PLT Count 301 K/ul 140-400 MPV 7.5 FL 7.1-10.7 Manual Differential 04/11/2019 [facility] Neutrophils 78 % High 35-75 Band 0 % 0-11 Lymphocytes 13 % Low 16-52 Monocytes 3 % 0-8 Eosinophils 6 % High 0-5 Basophils 0 % 0-4 Abs Neutrophils# 5.1 K/ul 1.8-7.7 Abs Lymphocytes# 0.8 K/ul Low 1.2-4.8 Abs Monocytes# 0.2 K/ul 0.0-0.8 Abs Eosinophils# 0.4 K/ul 0.0-0.5 Abs Basophils# 0.0 K/ul 0.0-0.3 Abs BandCells# 0.0 K/ul 0.0-1.2 Anisocytosis 1 None Seen Macrocytosis 1 None Seen Platelet Estimate NORMAL Normal Polychromasia 1 None Seen Spherocytes FEW Abnormal None Seen Iron Panel 04/11/2019 [facility] Iron, Total 20 g/dL Low 50-170 Transferrin 252.0 mg/dL 203.0-362.0 Tibc (calc) 353 g/dL 261-478 % Iron Saturation 5.7 % Low 13.0-45.0 1 Per NCEP ATP III Guidelines: Results lower than 40 mg/dL are suggestive of increased risk for coronary artery disease. Results > or = to 60 mg/dL are considered a negative risk factor. 2 Per NCEP ATP III Guidelines: Normal Population <130 Patients with medical conditions: CHD/DM Optimal: <100 Borderline high: 130-159 High: 160-189 Very high: >189 3 Updated reference range on new analyzer 4 Updated reference range on new analyzer 5 Updated reference range 11-20-2018 6 Updated Reference Range 7 Concerning GFR Guidelines for Americans: Normal function or mild renal disease, if clinically at risk: >/= 60 mL/min Moderately decreased: 30-59 Severely decreased: 15-29 Renal failure: <15 There is reduced accuracy above 60ml/min/1.73 m squared, but the numeric value may be clinically useful in the near 60 range 8 Concerning GFR Guidelines: Normal function or mild renal disease, if clinically at risk: >/= 60 mL/min Moderately decreased: 30-59 Severely decreased: 15-29 Renal failure: <15 There is reduced accuracy above 60ml/min/1.73 m squared, but the numeric value may be clinically useful in the near 60 range Glomerular Filtration Rate (GFR) is estimated based on the CKD-EPI equation, which assumes a steady state for creatinine as recommended by the National Kidney Disease Education Program in conjunction with the National Institutes of Health and the National Kidney Foundation. Clinical conditions in which it may be necessary to measure GFR by using clearance methods include extremes of age and body size, severe malnutrition or obesity, diseases of skeletal muscle, paraplegia or quadriplegia, vegetarian diet, rapidly changing kidney function, and calculation of the dose of potentially toxic drugs that are excreted by the kidneys. 9 Updated Reference Range 05/2019 10 Updated Reference Range 05/2019 11 Updated Reference Range 05/2019 12 Updated Reference Range 05/2019 13 Updated Reference Range 05/2019 14 Updated Reference Range 05/2019 15 Updated Reference range 05/2019 16 Updated Reference range 05/2019 17 Updated Reference Range 05/2019 18 Per NCEP ATP III Guidelines: Results lower than 40 mg/dL are suggestive of increased risk for coronary artery disease. Results > or = to 60 mg/dL are considered a negative risk factor. 19 Per NCEP ATP III Guidelines: Normal Population <130 Patients with medical conditions: CHD/DM Optimal: <100 Borderline high: 130-159 High: 160-189 Very high: >189 20 Updated reference range on new analyzer 21 Updated reference range on new analyzer 22 Updated reference range 11-20-2018 23 Updated Reference Range 24 Concerning GFR Guidelines for Americans: Normal function or mild renal disease, if clinically at risk: >/= 60 mL/min Moderately decreased: 30-59 Severely decreased: 15-29 Renal failure: <15 There is reduced accuracy above 60ml/min/1.73 m squared, but the numeric value may be clinically useful in the near 60 range 25 Concerning GFR Guidelines: Normal function or mild renal disease, if clinically at risk: >/= 60 mL/min Moderately decreased: 30-59 Severely decreased: 15-29 Renal failure: <15 There is reduced accuracy above 60ml/min/1.73 m squared, but the numeric value may be clinically useful in the near 60 range Glomerular Filtration Rate (GFR) is estimated based on the CKD-EPI equation, which assumes a steady state for creatinine as recommended by the National Kidney Disease Education Program in conjunction with the National Institutes of Health and the National Kidney Foundation. Clinical conditions in which it may be necessary to measure GFR by using clearance methods include extremes of age and body size, severe malnutrition or obesity, diseases of skeletal muscle, paraplegia or quadriplegia, vegetarian diet, rapidly changing kidney function, and calculation of the dose of potentially toxic drugs that are excreted by the kidneys. Procedures Date Code Description Status 04/21/2019 01106 Measure Blood Oxygen Level Single Determination Completed 03/05/2019 07184 Admin Of Inj (Therapeutic Phrophylactic Or Diagnostic Completed Subq Inj 10/18/2017 [id number] Colonoscopy Completed 07/11/2017 13063607 Mammogram Completed 06/14/2015 [id number] Mammogram Completed 02/23/2015 [id number] Bone Mineral Density Test Completed 06/09/2013 158863059 Diabetic Retinal Eye Exam Completed 02/03/2011 698004818 Bone Mineral Density Test Completed Medical Devices Description No Information Available Encounters Type Date Location Provider Dx Diagnosis Office Visit 04/21/2019 [facility] Lorraine Brown, E11.8 Type 2 diabetes 2:30p MD mellitus with unspecified complications E78.2 Mixed hyperlipidemia M10.9 Gout, unspecified D64.9 Anemia, unspecified D50.0 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 loss (chronic) E03.9 Hypothyroidism, unspecified Z95.2 Presence of prosthetic heart valve I50.32 Chronic diastolic (congestive) heart failure I25.10 Athscl heart disease of [place] coronary artery w/o ang pctrs I10 Essential (primary) hypertension J45.40 Moderate persistent asthma, uncomplicated E66.01 Morbid (severe) obesity due to excess calories I65.23 Occlusion and stenosis of bilateral carotid arteries N18.3 Chronic kidney disease, stage 3 (moderate) K51.80 Other ulcerative colitis without complications I49.5 Sick sinus syndrome Z95.0 Presence of cardiac pacemaker G47.30 Sleep apnea, unspecified Z87.891 Personal history of nicotine dependence K63.5 Polyp of colon E11.21 Type 2 diabetes mellitus with diabetic nephropathy E11.3293 Type 2 diab with mild nonp rtnop without macular edema, bi M81.8 Other osteoporosis without current pathological fracture J30.9 Allergic rhinitis, unspecified Z68.41 Body mass index (BMI) 40.0-44.9, adult Office Visit 03/05/2019 11:00a [facility] Schedule, Nurses Z95.2 Presence of prosthetic heart valve I50.32 Chronic diastolic (congestive) heart failure I25.10 Athscl heart disease of [place] coronary artery w/o ang pctrs Assessments Date Code Description Provider 07/25/2019 E11.8 Type 2 diabetes mellitus with unspecified Lorraine Brown MD complications 07/25/2019 E03.9 Hypothyroidism, unspecified Lorraine Brown MD 07/25/2019 E78.2 Mixed hyperlipidemia Lorraine Brown MD 07/25/2019 M10.9 Gout, unspecified Lorraine Brown MD 07/25/2019 D64.9 Anemia, unspecified Lorraine Brown MD 07/25/2019 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) 07/25/2019 E66.01 Morbid (severe) obesity due to excess Lorraine Brown MD calories 07/25/2019 Z95.2 Presence of prosthetic heart valve Lorraine Brown MD 07/25/2019 I50.32 Chronic diastolic (congestive) heart failure Lorraine Brown MD 07/25/2019 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 07/25/2019 I10 Essential (primary) hypertension Lorraine Brown MD 07/25/2019 J45.40 Moderate persistent asthma, uncomplicated Lorraine Brown MD 07/25/2019 I65.23 Occlusion and stenosis of bilateral carotid Lorraine Brown MD arteries 07/25/2019 N18.3 Chronic kidney disease, stage 3 (moderate) Lorraine Brown MD 07/25/2019 K51.80 Other ulcerative colitis without Lorraine Brown MD complications 07/25/2019 I49.5 Sick sinus syndrome Lorraine Brown MD 07/25/2019 Z95.0 Presence of cardiac pacemaker Lorraine Brown MD 07/25/2019 G47.30 Sleep apnea, unspecified Lorraine Brown MD 07/25/2019 Z87.891 Personal history of nicotine dependence Lorraine Brown MD 07/25/2019 K63.5 Polyp of colon Lorraine Brown MD 07/25/2019 E11.21 Type 2 diabetes mellitus with diabetic Lorraine Brown MD nephropathy 07/25/2019 E11.3293 Type 2 diabetes mellitus with mild Lorraine Brown MD nonproliferative diabetic 07/25/2019 M81.8 Other osteoporosis without current Lorraine Brown MD pathological fracture 07/25/2019 J30.9 Allergic rhinitis, unspecified Lorraine Brown MD 07/25/2019 Z12.31 Encounter for screening mammogram for Lorraine Brown MD malignant neoplasm of breast 07/25/2019 Z68.41 Body mass index (BMI) 40.0-44.9, adult Lorraine Brown MD 07/18/2019 E11.8 Type 2 diabetes mellitus with unspecified Lorraine Brown MD complications 07/18/2019 E11.8 Type 2 diabetes mellitus with unspecified Schedule, Laboratory complications 07/18/2019 E03.9 Hypothyroidism, unspecified Lorraine Brown MD 07/18/2019 E03.9 Hypothyroidism, unspecified Schedule, Laboratory 07/18/2019 E78.2 Mixed hyperlipidemia Lorraine Brown MD 07/18/2019 E78.2 Mixed hyperlipidemia Schedule, Laboratory 07/18/2019 M10.9 Gout, unspecified Lorraine Brown MD 07/18/2019 M10.9 Gout, unspecified Schedule, Laboratory 07/18/2019 D64.9 Anemia, unspecified Lorraine Brown MD 07/18/2019 D64.9 Anemia, unspecified Schedule, Laboratory 07/18/2019 Z68.41 Body mass index (BMI) 40.0-44.9, adult Lorraine Brown MD 07/18/2019 Z68.41 Body mass index (BMI) 40.0-44.9, adult Schedule, Laboratory 07/18/2019 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) 07/18/2019 D50.0 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 Schedule, Laboratory loss (chronic) 07/18/2019 E11.8 Type 2 diabetes mellitus with unspecified [facility] complications 07/18/2019 E03.9 Hypothyroidism, unspecified [facility] 07/18/2019 E78.2 Mixed hyperlipidemia [facility] 07/18/2019 M10.9 Gout, unspecified [facility] 07/18/2019 D64.9 Anemia, unspecified [facility] 07/18/2019 Z68.41 Body mass index (BMI) 40.0-44.9, adult [facility] 07/18/2019 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) 04/21/2019 E11.8 Type 2 diabetes mellitus with unspecified Lorraine Brown MD complications 04/21/2019 E78.2 Mixed hyperlipidemia Lorraine Brown MD 04/21/2019 M10.9 Gout, unspecified Lorraine Brown MD 04/21/2019 D64.9 Anemia, unspecified Lorraine Brown MD 04/21/2019 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) 04/21/2019 E03.9 Hypothyroidism, unspecified Lorraine Brown MD 04/21/2019 Z95.2 Presence of prosthetic heart valve Lorraine Brown MD 04/21/2019 I50.32 Chronic diastolic (congestive) heart failure Lorraine Brown MD 04/21/2019 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 04/21/2019 I10 Essential (primary) hypertension Lorraine Brown MD 04/21/2019 J45.40 Moderate persistent asthma, uncomplicated Lorraine Brown MD 04/21/2019 E66.01 Morbid (severe) obesity due to excess Lorraine Brown MD calories 04/21/2019 I65.23 Occlusion and stenosis of bilateral carotid Lorraine Brown MD arteries 04/21/2019 N18.3 Chronic kidney disease, stage 3 (moderate) Lorraine Brown MD 04/21/2019 K51.80 Other ulcerative colitis without Lorraine Brown MD complications 04/21/2019 I49.5 Sick sinus syndrome Lorraine Brown MD 04/21/2019 Z95.0 Presence of cardiac pacemaker Lorraine Brown MD 04/21/2019 G47.30 Sleep apnea, unspecified Lorraine Brown MD 04/21/2019 Z87.891 Personal history of nicotine dependence Lorraine Brown MD 04/21/2019 K63.5 Polyp of colon Lorraine Brown MD 04/21/2019 E11.21 Type 2 diabetes mellitus with diabetic Lorraine Brown MD nephropathy 04/21/2019 E11.3293 Type 2 diabetes mellitus with mild Lorraine Brown MD nonproliferative diabetic 04/21/2019 M81.8 Other osteoporosis without current Lorraine Brown MD pathological fracture 04/21/2019 J30.9 Allergic rhinitis, unspecified Lorraine Brown MD 04/21/2019 Z68.41 Body mass index (BMI) 40.0-44.9, adult Lorraine Brown MD 04/11/2019 E11.8 Type 2 diabetes mellitus with unspecified Lorraine Brown MD complications 04/11/2019 E11.8 Type 2 diabetes mellitus with unspecified Schedule, Laboratory complications 04/11/2019 E03.9 Hypothyroidism, unspecified Lorraine Brown MD 04/11/2019 E03.9 Hypothyroidism, unspecified Schedule, Laboratory 04/11/2019 E78.2 Mixed hyperlipidemia Lorraine Brown MD 04/11/2019 E78.2 Mixed hyperlipidemia Schedule, Laboratory 04/11/2019 M10.9 Gout, unspecified Lorraine Brown MD 04/11/2019 M10.9 Gout, unspecified Schedule, Laboratory 04/11/2019 D64.9 Anemia, unspecified Lorraine Brown MD 04/11/2019 D64.9 Anemia, unspecified Schedule, Laboratory 04/11/2019 Z68.41 Body mass index (BMI) 40.0-44.9, adult Lorraine Brown MD 04/11/2019 Z68.41 Body mass index (BMI) 40.0-44.9, adult Schedule, Laboratory 04/11/2019 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) 04/11/2019 D50.0 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 Schedule, Laboratory loss (chronic) 04/11/2019 E11.8 Type 2 diabetes mellitus with unspecified [facility] complications 04/11/2019 E03.9 Hypothyroidism, unspecified [facility] 04/11/2019 E78.2 Mixed hyperlipidemia [facility] 04/11/2019 M10.9 Gout, unspecified [facility] 04/11/2019 D64.9 Anemia, unspecified [facility] 04/11/2019 Z68.41 Body mass index (BMI) 40.0-44.9, adult [facility] 04/11/2019 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) 03/05/2019 Z95.2 Presence of prosthetic heart valve Lorraine Brown MD 03/05/2019 Z95.2 Presence of prosthetic heart valve Schedule, Nurses 03/05/2019 I50.32 Chronic diastolic (congestive) heart failure Lorraine Brown MD 03/05/2019 I50.32 Chronic diastolic (congestive) heart failure Schedule, Nurses 03/05/2019 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 Pt with stable control per Hba1c under 6 and fingerstick readings 110 - 135sat this time, no medications. Diet controlled Reviewed signs and symptoms of hypoglycemia andhow to treat, call if fingersticks are regularly under 80 or over 130. Please test fingersticks as needed when ill or prednisone is used. Occasionally check a fs 2 hours after a meal, and it should beunder 140. Please bring copies of fs to visitBe sure to check your feet daily and see the podiatristregularly. glyco goal under 8continues statin therapysee the ledger clerk periodically Be sure to see your eye doc annually.Referral:Nate Eid M.D., OphthalmologyFollow up:mamm due now; next visit end of September for 30min [facility] nonfasting labs 5 days fssmzK98.9 Hypothyroidism, unspecifiedNew Labs:TSH, Scheduled: 10/06Comments:hypothyroid--TSH/labs are stable. Continue replacement medication. Reviewed side effects. Please call for concerns about over treatment or under treatment, with symptoms such as fatigue, change in bowel habits/skin/hair/nails , temperature intolerance, weight changes, or other concerns. Take meds in morning, first thing on arising, no food or drink or other meds for 92conR40.2 Mixed hyperlipidemiaNew Labs:Lipid, Scheduled: 10/07/19CPK, Scheduled : 10/07/19Comments:high cholPer AHA guidelines, due to known CAD, there is high cardiovascular riskShe has history of lfts elevating on statins, and currently has been taking atorvastatin 20mg. Will continue dosing as she hasnot had any more concerns develop aspirin 81mg daily is also recommended. For lifestyle, we also recommend: Low fat ( under 30gm per day), low chol diet ( under 300mg per day chol)focus on lean meat, nonfat 1% dairy, increased veg and fruit, whole grains weight lossexercise build to at least 30min per day. Reviewed signs and symptoms of cardiovascular disease.M10.9 Gout, unspecifiedNew Labs:Uric Acid, Scheduled: 10/07/19Comments:gout--continue meds, symptoms controlled, uric acid is under 6, I don't want to push meds if doesn't have symptoms, she has renal insufficiency Recheck uric acid periodically may use colchicine as needed for acute attacks but has kidney disease so should call if feels she needs to take this, if sxsnot controlled within 3 days, should be seen. 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 continue monitoring of cbc and iron, call for black/bloody stool notes and labsto DR Escobar she is not taking iron advised the pantoprazole is likely interfering with absorption ofiron from food and supplements.E66.01 Morbid ( severe) obesity due to excess caloriesComments:Congrats on weight loss! Pt's new approach is helping, continue! she is down another 3# BMI improved by over 2 nunthlM36.2 Presence of prosthetic heart valveComments:sp mitral valve replacementpt brings her antibiotic for injection here just prior to dental care.I50.32 Chronic diastolic (congestive) heart failureComments:congestive heart failure, diastolic--Appears compensated without exacerbation. Please call if you develop increased Shortness of breath at rest/exertion/nighttime, chest pain, swelling, edema, or increase of weight of 5# in a week. You should be evaluated. call for any concerns. No heart failure spells on spironolactone and furosmeide, with worsening kidney function. Recommend cutting backto furosmeide 40mg daily to spare stress on oknlwcgT51.10 Atherosclerotic heart disease of [place] coronary artery without angina pectorisComments:CAD--Patient appears stable without symptoms. sp cabg and mitral valve repair. Advised to continuemeds to control risk factors, statin therapy, atorvastatin and BP control, beta mariela metoprolol and acei irbesartan. Discussed side effects. Continues on aspirin, 81mg enteric coated. . Encouraged continued healthy diet modified in fat and cholesterol with regular daily exercise. Call for symptoms of chest pressure, pain tightness, at rest or with exertion, or increasing SOB/developing exercise intolerance. Call for concerns. care co managed with keyla [id number] Essential (primary) hypertensionComments:Htn--BPs appear stable and in good control, reminded goal of BP < 150/90 given age and conditions. Continue current meds, please call for medication side effects such as cough, rash or any concerns. Encouraged diet modified in fat and no added salt. Limit alcohol to < 1 per day. Encouraged regular exercise of 30 min most days per week. Encouraged pt to continue to monitor BP and call if > 140/90 on a regular basis. Please call if you feel your blood pressure is under 110 systolic and/or causing you symptoms such as dizziness, lightheadedness, or other concerns.J45.40 Moderate persistent asthma, uncomplicatedComments:Asthma stable, but not contrlled. Continue Asthma meds as prescribed. Call for increased use of albuterol more that 2 times per week, or any new concerns or symptoms. recommend annual flu vaccine, should receive the injection, care with Dr Marshall65.23 Occlusion and stenosis of bilateral carotid arteriesComments:carotid artery stenosis/ plaque, care with Dr Sauceda .recent dopplers show significant stenosis, ct angio 11/2016 shows possible critical stenosis, Dr Sauceda is monitoring and last dopplers showed springbilat 50-79%Reviewed signs/symptoms stroke and cardiovascular disease.N18.3 Chronic kidney disease, stage 3 (moderate)Comments: chronic renal disease. tight control of bp, ongoing renal f/u with Dr Escobar, creatinine is much higher this visit at 2.4, gfr down to 20s, and bun high, will reduce furosemide to 40mg twice daily , sh ehas fu this week with Dr Escobar , and expect labs to be rechecked. note and current labs to Dr EscobarK51.80 Other ulcerative colitis without complicationsComments:colitis. symptoms improved with current treatmentcall for worsening symptoms care with dr Levine49.5 Sick sinus syndromeComments:pacemaker placed 07/15/2015, sick sinus syndrome. care with Dr Huang, Pt without new sxs or concerns. Continue meds. Call for complaints of dizziness, shortness of breath, vertigo, swelling , weight loss, or any concerns.Z95.0 Presence of cardiac wikzxrsybM21.30 Sleep apnea, unspecifiedComments:Pt to continue apap to control sleep apnea. Call if has trouble with machine or other issues. Callprn excessive day time sleepiness or concerns. care wit Dr [phone] Personal history of nicotine dependenceComments:Former smoker, not a candidate for lung cancer screening based on history Seek care for persistent cough, unexpected weight loss/fatigue , coughing up blood as these can be signs of lung wgoqapH27.5 Polyp of colonComments:Pt with h/o colon polyps, last colonoscopy 09/2017, next in 3 yr Next colonoscopy due years per DR Brenner Please call for blood in stool, changes in bowel habits, any concerns. Colonoscopy can still miss polyps.E11.21 Type 2 diabetes mellitus with diabetic nephropathyComments:care with DR Escobar good bp controlavoid nsaidshydrate wellReferral:Nate Eid M.D., [id number] Type 2 diabetes mellitus with mild nonproliferative diabeticComments:stuart SinclairaceReferral:Nate Eid M.D., IxuimvorafabaO43.8 Other osteoporosis without current pathological fractureComments:ostepenia--follow up regarding osteoporosis disease and medicationslast dexa 02/20/2015 showed areas at -1.6 she is off medications as of 2013. declines further treatment needs adequate vit d and calcium for meds to work, discussed doses of calcium and vit d for this pt continue meds and monitor for side aehrrbyL31.9 Allergic rhinitis, unspecifiedComments:cont care with specialist Dr HernandezZ12.31 Encounter for screening mammogram for malignant neoplasm of breastNew Xrays:Mammogram Screening, Bilateral Incl CAD When Performe, Scheduled: 07/25/19Comments:Annual mammogram and clinical breast exam with monthly breast self exams discussed. Pt should call/come in if she has any changes in breast self exam or concerns. Advised pt that for those aged 50-74, USPSTF recommends mammo every other year , and breast self exam or clinical breast exam need to be decided individually. [employer] [employer] recommends for those age 55 and up, mammo every other year and to not do annual clinical breast exams. At risk pts should do annually or as directed by specialist recommendations. Currently I am recommending pts do what they feel they should, and that mostin this risk category do an annual mammogram and clinical breast exam. If you want to treat breast cancer, then do annual screening. Discussed the new recommendations for breast ultrasound for verydense breasts as an additional test for screening. She asks for every other year mammogram and annual clinical breast exam.Z68.41 Body mass index (BMI ) 40.0-44.9, adultNew Labs:Manual Differential, Scheduled: 10/07/19Iron Panel, Scheduled: 10/07/19Comments:continue to work on diet, exercise, weight loss Functional Status Description No Information Available Mental Status Description No Information Available Referrals Refer to Reason for Referral Status Appt Date Eid,Nate B, M.D. annual diabetes eye exam due 07/2019 Created [address], [place] [id number] [phone]
--- OUTSIDE RECORDS SUMMARY | 2019-09-18 10:39 | XMS REPORT | Continuity of Care Document ---
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 Problems Active Problems Provider Date Allergic asthma [...] Medications SIG Qnty Indications Ordering Date Provider Ipratropium Alloway use with nebulizer 75ml Юлия 08/05/2019 am&pm Uldrich, PROCUREMENT COORDINATOR-C 0.02% Solution Azelastine HCL [place] One [place] 30units Berta Lebronmond, 05/27/2019 (Nasal) Into Each Nostril PROCUREMENT COORDINATOR-C 137mcg/[place] Once In The Morning Solution And Once AT Night Levalbuterol HCL use via nebulizer 30ml Юлия 04/04/2019 every 4 -6 hours Uldrich, PROCUREMENT COORDINATOR-C 1.25mg/3ML Nebulizer for shortness of breath, cough or wheezing Sodium Chloride Mix 1 with 1 vial 90ml Юлия 04/04/2019 0.9% of levalbuterol Uldrich, PROCUREMENT COORDINATOR-C Nebulizer solutions vial via nebulizer as needed Epipen 2-Elvin use as directed 2units Юлия 07/30/2018 Uldrich, PROCUREMENT COORDINATOR-C 0.3mg/0.3ML Solution Auto-Inject Xolair inject 225mg under 12units Юлия 06/03/2018 150mg Solution the skin every 2 Uldrich, PROCUREMENT COORDINATOR-C Rec weeks Cetirizine HCL 1 by mouth every 30tabs Jordana Maria, 08/28/2017 10mg day PROCUREMENT COORDINATOR-C Tablets Ventolin HFA 2 inhalations q4h 1units J45.40 Manan Farr, 10/15/2014 prn coughing or M.D. 108(90Base) mcg/Act wheezing Aerosol Albuterol Sulfate #1 via nebulizer 90ml J45.40 Юлия 10/13/2014 every 4-6 hours as Uldrich, PROCUREMENT COORDINATOR-C (2.5mg/3ML) 0.083% needed for cough, Nebulizer shortness of breath and wheezing Fluticasone two sprays in each 1units Manan Farr, 06/10/2013 Propionate nostril once daily M.D. 50mcg/Act Suspension Dulera inhale 2 puffs by 13gm Юлия 100-5mcg/Act mouth every morning Uldrich, PROCUREMENT COORDINATOR-C Aerosol and evening Spiriva Respimat 2 inhalations once 1units J45.40 Юлия daily Uldrich, PROCUREMENT COORDINATOR-C 2.5mcg/Act Aerosol Furosemide 2 tabs twice per Unknown 40mg Tablets day Spironolactone 1/2 tablet daily Unknown 25mg Tablets Pantoprazole Sodium 1 tab daily. Unknown 40mg Tablets DR Bo M10 1 tab every day Unknown 10Meq Tablets ER Irbesartan 1 tab every day Unknown 75mg Tablets Aspirin Low Dose 1 every day Unknown 81mg Chewtabs Atorvastatin Calcium 1 every day Unknown Powder Allopurinol twice a day Unknown 100mg Tablets Singulair take 1 tablet by 30tabs Юлия 10mg Tablets mouth every day JOSE ALEJANDRO Dasilva needs annual Levothyroxine Sodium 1 tab daily. Unknown 125mcg Tablets Medications Administered in Office Medication SIG Qnty Indications Ordering Provider Date Biologic Agent ISA Keith-C 08/05/2019 Administration Injection Biologic Agent ISA Keith-C 07/09/2019 Administration Injection Therapeutic, Prophylactic Or Юлия Vidya PROCUREMENT COORDINATOR-C 07/09/2019 Diagnostic Injection Subq/Im Injection Biologic Agent MELL KeithP-C 06/25/2019 Administration Injection Therapeutic, Prophylactic Or Юлия Ulbharat PROCUREMENT COORDINATOR-C 06/25/2019 Diagnostic Injection Subq/Im Injection Biologic Agent Юлия Dasilva PROCUREMENT COORDINATOR-C 06/11/2019 Administration Injection Therapeutic, Prophylactic Or Юлия Vidya PROCUREMENT COORDINATOR-C 06/11/2019 Diagnostic Injection Subq/Im Injection Biologic Agent Юлия Dasilva, PROCUREMENT COORDINATOR-C 05/28/2019 Administration Injection Therapeutic, Prophylactic Or Юлия Ulbharat PROCUREMENT COORDINATOR-C 05/28/2019 Diagnostic Injection Subq/Im Injection Biologic Agent Юлия Dasilva, PROCUREMENT COORDINATOR-C 05/14/2019 Administration Injection Therapeutic, Prophylactic Or Юлия Ulbharat, PROCUREMENT COORDINATOR-C 05/14/2019 Diagnostic Injection Subq/Im Injection Biologic Agent Юлия Dasilva, PROCUREMENT COORDINATOR-C 04/30/2019 Administration Injection Therapeutic, Prophylactic Or Юлия Uldrich, PROCUREMENT COORDINATOR-C 04/30/2019 Diagnostic Injection Subq/Im Injection Therapeutic, Prophylactic Or Юлия Uldrich, PROCUREMENT COORDINATOR-C 04/16/2019 Diagnostic Injection Subq/Im Injection Biologic Agent Юлия Uldrich, PROCUREMENT COORDINATOR-C 04/02/2019 Administration Injection Therapeutic, Prophylactic Or Юлия Uldrich, PROCUREMENT COORDINATOR-C 04/02/2019 Diagnostic Injection Subq/Im Injection Biologic Agent Юлия Uldrich, PROCUREMENT COORDINATOR-C 03/12/2019 Administration Injection Therapeutic, Prophylactic Or Юлия Uldrich, PROCUREMENT COORDINATOR-C 03/12/2019 Diagnostic Injection Subq/Im Injection Biologic Agent Юлия Uldrich, PROCUREMENT COORDINATOR-C 02/19/2019 Administration Injection Therapeutic, Prophylactic Or Юлия Uldrich, PROCUREMENT COORDINATOR-C 02/19/2019 Diagnostic Injection Subq/Im Injection Biologic Agent Юлия Uldrich, PROCUREMENT COORDINATOR-C 02/05/2019 Administration Injection Therapeutic, Prophylactic Or Юлия Uldrich, PROCUREMENT COORDINATOR-C 02/05/2019 Diagnostic Injection Subq/Im Injection Biologic Agent Юлия Uldrich, PROCUREMENT COORDINATOR-C 01/22/2019 Administration Injection Therapeutic, Prophylactic Or Юлия Uldrich, PROCUREMENT COORDINATOR-C 01/22/2019 Diagnostic Injection Subq/Im Injection Therapeutic, Prophylactic Or Юлия Uldrich, PROCUREMENT COORDINATOR-C 01/08/2019 Diagnostic Injection Subq/Im Injection Biologic Agent Юлия Uldrich, PROCUREMENT COORDINATOR-C 12/25/2018 Administration Injection Therapeutic, Prophylactic Or Nancy Ceja M.D. 12/25/2018 Diagnostic Injection Subq/Im Injection Biologic Agent Юлия Uldrich, PROCUREMENT COORDINATOR-C 12/11/2018 Administration Injection Therapeutic, Prophylactic Or Юлия Uldrich, PROCUREMENT COORDINATOR-C 12/11/2018 Diagnostic Injection Subq/Im Injection Biologic Agent Юлия Uldrich, PROCUREMENT COORDINATOR-C 11/26/2018 Administration Injection Therapeutic, Prophylactic Or Юлия Uldrich, PROCUREMENT COORDINATOR-C 11/26/2018 Diagnostic Injection Subq/Im Injection Biologic Agent Юлия Uldrich, PROCUREMENT COORDINATOR-C 11/13/2018 Administration Injection Therapeutic, Prophylactic Or Юлия Uldrich, PROCUREMENT COORDINATOR-C 11/13/2018 Diagnostic Injection Subq/Im Injection Biologic Agent Юлия Uldrich, PROCUREMENT COORDINATOR-C 10/30/2018 Administration Injection Therapeutic, Prophylactic Or Юлия Uldrich, PROCUREMENT COORDINATOR-C 10/30/2018 Diagnostic Injection Subq/Im Injection Biologic Agent Юлия Uldrich, PROCUREMENT COORDINATOR-C 10/16/2018 Administration Injection Therapeutic, Prophylactic Or Юлия Uldrich, PROCUREMENT COORDINATOR-C 10/16/2018 Diagnostic Injection Subq/Im Injection Biologic Agent Ania Eric, PROCUREMENT COORDINATOR-C 10/02/2018 Administration Injection Therapeutic, Prophylactic Or Ania Eric, PROCUREMENT COORDINATOR-C 10/02/2018 Diagnostic Injection Subq/Im Injection Biologic Agent Юлия Uldrich, PROCUREMENT COORDINATOR-C 09/18/2018 Administration Injection Therapeutic, Prophylactic Or Юлия Uldrich, PROCUREMENT COORDINATOR-C 09/18/2018 Diagnostic Injection Subq/Im Injection Biologic Agent Юлия Uldrich, PROCUREMENT COORDINATOR-C 09/04/2018 Administration Injection Therapeutic, Prophylactic Or Manan Farr M.D. 09/04/2018 Diagnostic Injection Subq/Im Injection Biologic Agent Юлия Uldrich, PROCUREMENT COORDINATOR-C 08/21/2018 Administration Injection Therapeutic, Prophylactic Or Nancy Ceja M.D. 08/21/2018 Diagnostic Injection Subq/Im Injection Biologic Agent Юлия Uldrich, PROCUREMENT COORDINATOR-C 08/07/2018 Administration Injection Therapeutic, Prophylactic Or Юлия Uldrich, PROCUREMENT COORDINATOR-C 08/07/2018 Diagnostic Injection Subq/Im Injection Celestone/Cortisone Leeanne Salamanca, 10/22/2014 [id number] cc PH.D, RPA-C Injection Celestone/Cortisone Leeanne Salamanca, 10/13/2014 [id number] 1 cc PH.D, RPA-C Injection Injection Donovan Holliday M.D. 12/10/2012 Injection Injection Allergy Injection 12/10/2012 Injection Injection Allergy Injection 11/26/2012 Injection Injection Allergy Injection 11/12/2012 Injection Injection Donovan Holliday M.D. 10/29/2012 Injection Injection Allergy Injection 10/29/2012 Injection Injection Donovan Holliday M.D. 10/15/2012 Injection Injection Allergy Injection 10/15/2012 Injection Injection Donovan Holliday, M.DRickie 10/01/2012 Injection Injection Donovan Holliday, CarloDRickie 09/17/2012 Injection Injection Donovan Holliday, CarloDRickie 08/20/2012 Injection Injection Donovan Holliday, CarloDRickie 07/30/2012 Injection Injection Nancy Eduardo Carlo CejaDRickie 07/09/2012 Injection Injection Nancy Eduardo Marcial, CarloDRickie 06/18/2012 Injection Injection Nancy Eduardo Marcial, Alesha.DRickie 05/28/2012 Injection Injection Nancy Eduardo Rustyjhoan, Alesha.DRickie 05/14/2012 Injection Injection Nancy Eduardo Marcial, CarloDRickie 04/23/2012 Injection Injection Nancy Eduardo Marcial, CarloDRickie 04/09/2012 Injection Injection Nancy Eduardo Carlo CejaDRickie 03/26/2012 Injection Injection Nancy Eduardo Carlo CejaDRickie 03/12/2012 Injection Injection Nancy M Marcial, CarloDRickie 02/27/2012 Injection Injection Nancy Eduardo Marcial, CarloDRickie 02/13/2012 Injection Injection Nancy Eduardo Carlo CejaDRickie 01/30/2012 Injection Injection Nancy Eduardo Carlo CejaDRickie 01/16/2012 Injection Injection Nancy Eduardo Marcial, CarloDRickie 01/02/2012 Injection Injection Nancy Eduardo Marcial, CarloDRickie 12/19/2011 Injection Injection Nancy Eduardo Carlo CejaDRickie 12/05/2011 Injection Injection Nancy M Carlo CejaDRickie 11/28/2011 Injection Injection Nancy Eduardo Carlo CejaDRickie 11/14/2011 Injection Injection Nancy Eduardo Marcial, CarloDRickie 10/31/2011 Injection Injection Nancy Eduardo Marcial, CarloDRickie 10/17/2011 Injection Injection Nancy M Carlo CejaDRickie 10/03/2011 Injection Injection Donovan Holliday, CarloDRickie 09/19/2011 Injection Injection Donovan Holliday, CarloDRickie 09/05/2011 Injection Injection Carlo PowersDRickie 07/06/2011 Injection Injection Donovan Holliday, CarloDRickie 06/22/2011 Injection Injection Carlo NathDRickie 06/08/2011 Injection Injection Donovan Mg, M.DRickie 05/25/2011 [...] Mg, M.DRickie 11/10/2010 Injection Injection Donovan Mg, Alesha.DRickie 10/25/2010 Injection Injection Donovan Mg, Alesha.DRickie 10/11/2010 Injection Injection Donovan Mg, M.DRickie 09/20/2010 [...] Ceja M.D. 02/15/2010 Injection Injection Donovan Mg, MRickieDRickie 02/01/2010 Injection Injection Donovan Mg, M.DRickie 01/18/2010 Injection Injection Donovan Mg, MRickieDRickie 01/04/2010 Injection Injection Donovan Mg, MRickieDRickie 12/21/2009 Injection Injection Donovan Mg, CarloDRickie 12/09/2009 Injection Injection Donovan Mg, M.DRickie 11/23/2009 Injection Injection Donovan Mg, M.DRickie 11/09/2009 Injection Injection Donovan Mg, M.DRickie 10/26/2009 Injection Injection Donovan Mg, M.DRickie 10/12/2009 Injection Injection Donovan Mg, CarloDRickie 09/28/2009 Injection Injection Donovan Mg, M.DRickie 09/14/2009 Injection Injection Nancy Ceja M.D. 08/24/2009 Injection Injection Christopher Mares, 08/12/2009 Injection M.DRickie Injection Donovan Mg, MRickieDRickie 07/29/2009 Injection Injection Donovan Mg, M.DRickie 07/13/2009 Injection Injection Christopher Mares, 07/01/2009 Injection M.DRickie Injection Donovan Mg, Myrna 06/15/2009 Injection Injection Donovan Mg, CarloDRickie 06/01/2009 Injection Injection Donovan Mg, M.DRickie 05/18/2009 Injection Injection Donovan Mg, M.DRickie 04/29/2009 Injection Injection Donovan Mg, MRickieDRickie 04/15/2009 Injection Injection Donovan Mg, MRickieDRickie 04/01/2009 Injection Injection Donovan Mg, M.DRickie 03/18/2009 Injection Injection Donovan Mg, CarloDRickie 03/04/2009 Injection Injection Donovan Mg, MRickieDRickie 02/18/2009 Injection Injection Donovan Mg, M.DRickie 02/04/2009 Injection Injection Donovan Mg, M.DRickie 01/21/2009 Injection Injection Christopher Mares, 01/07/2009 Injection M.D. Injection Donovan Mg, M.DRickie 12/24/2008 Injection Injection Donovan Mg, M.DRickie 12/10/2008 Injection Injection Donovan Mg, MRickieDRickie 12/03/2008 Injection Injection Donovan Mg, CarloDRickie 11/24/2008 Injection Injection Donovan Mg, M.DRickie 11/19/2008 Injection Injection Donovan Mg, Myrna 11/12/2008 Injection Injection Donovan Mg, CarloDRickie 11/03/2008 Injection Injection Donovan Mg, CarloDRickie 10/15/2008 Injection Injection Donovan Mg, CarloDRickie 10/01/2008 Injection Injection Donovan Mg, CarloDRickie 09/17/2008 Injection Injection Donovan Mg, CarloDRickie 09/03/2008 Injection Injection Donovan Mg, CarloDRickie 08/20/2008 Injection Injection Donovan Mg, M.DRickie 08/06/2008 Injection Injection Donovan Mg, Alesha.DRickie 07/14/2008 Injection Injection Donovan Mg, Myrna 07/02/2008 Injection Injection Donovan Mg, Myrna 06/16/2008 Injection Injection Donovan Mg, Myrna 06/11/2008 Injection Injection Donovan Mg, Myrna 06/04/2008 Injection Injection Donovan Mg, Myrna 05/28/2008 Injection Injection Donovan Mg, Myrna 05/21/2008 Injection Injection Donovan Mg, Myrna 05/14/2008 Injection Injection Donovan Mg, Myrna 05/07/2008 Injection Injection Donovan Mg, Myrna 04/30/2008 Injection Injection Donovan Mg, Myrna 04/23/2008 Injection Injection Donovan Mg, CarloDRickie 04/16/2008 Injection Injection Donovan Mg, Myrna 04/09/2008 Injection Injection Donovan Mg, Myrna 04/02/2008 Injection Injection Donovan Mg, CarloDRickie 03/26/2008 Injection Injection Donovan Mg, CarloDRickie 03/19/2008 Injection Injection Donovan Mg, Myrna 03/12/2008 Injection Injection Donovan Mg, Mynra 03/05/2008 Injection Injection Donovan Mg, Myrna 02/27/2008 Injection Injection Donovan Mg, CarloDRickie 02/20/2008 Injection Injection Donovan Mg, Myrna 02/13/2008 Injection Injection Donovan Mg, Myrna 02/04/2008 Injection Injection Donovan Holliday M.D. 01/30/2008 Injection Injection Donovan Holliday M.D. 01/23/2008 Injection Injection Donovan Holliday M.D. 01/16/2008 Injection Injection Donovan Holliday M.D. 01/09/2008 Injection Injection Donovan Holliday M.D. 01/02/2008 Injection Injection Donovan Holliday M.D. 12/26/2007 Injection Injection Donovan Holliday M.D. 12/19/2007 Injection Injection Donovan Holliday M.D. 12/12/2007 Injection Injection Donovan Holliday M.D. 12/03/2007 Injection Injection Donovan Holliday M.D. 11/26/2007 Injection Injection Donovan Holliday M.D. 11/19/2007 Injection Immunizations CPT Code Status Date Vaccine Lot # 46036 Given 04/22/2013 Influenza Vaccine 73733 Given 07/23/2010 Pneumococcal Vaccine 53627 Given Unknown Pneumococcal Vaccine 26482 Given Unknown Influenza Vaccine 92609 Given Unknown Influenza Vaccine 61769 Given Unknown Influenza Vaccine 58452 Given Unknown Influenza Vaccine 58184 Given Unknown Influenza Vaccine Vital Signs Date Vital Result Comment 08/05/2019 11:18am Height 65 inches 5'5" Weight 237.00 lb Weight 107.503 kg Respiratory Rate 20 /min Heart Rate 102 /min O2 % BldC Oximetry 95 % BP Systolic 124 mmHg BP Diastolic 68 mmHg BMI (Body Mass Index) 39.4 kg/m2 07/09/2019 11:17am Height 65 inches 5'5" Weight 240.00 lb Weight 108.864 kg Respiratory Rate 16 /min Heart Rate 90 /min O2 % BldC Oximetry 95 % BP Systolic 138 mmHg BP Diastolic 71 mmHg Asthma Control Test 21 BMI (Body Mass Index) 39.9 kg/m2 Results Description No Information Available Procedures Date Code Description Status 08/05/2019 82167 Biologic Agent Administration Completed 08/05/2019 46937 Ippb Completed 07/09/2019 83065 Biologic Agent Administration Completed 07/09/2019 14772 Therapeutic, Prophylactic Or Diagnostic Injection Subq/Im Completed 06/25/2019 82187 Biologic Agent Administration Completed 06/25/2019 13099 Therapeutic, Prophylactic Or Diagnostic Injection Subq/Im Completed 06/25/2019 57865 Ippb Completed 06/11/2019 05231 Biologic Agent Administration Completed 06/11/2019 82812 Therapeutic, Prophylactic Or Diagnostic Injection Subq/Im Completed 05/28/2019 92370 Biologic Agent Administration Completed 05/28/2019 52049 Therapeutic, Prophylactic Or Diagnostic Injection Subq/Im Completed 05/14/2019 07542 Therapeutic, Prophylactic Or Diagnostic Injection Subq/Im Completed 05/14/2019 36209 Biologic Agent Administration Completed 04/30/2019 40455 Biologic Agent Administration Completed 04/30/2019 75231 Therapeutic, Prophylactic Or Diagnostic Injection Subq/Im Completed 04/16/2019 13230 Therapeutic, Prophylactic Or Diagnostic Injection Subq/Im Completed 04/02/2019 96723 Biologic Agent Administration Completed 04/02/2019 50607 Therapeutic, Prophylactic Or Diagnostic Injection Subq/Im Completed 03/12/2019 39223 Biologic Agent Administration Completed 03/12/2019 03989 Therapeutic, Prophylactic Or Diagnostic Injection Subq/Im Completed 02/19/2019 50053 Biologic Agent Administration Completed 02/19/2019 55796 Therapeutic, Prophylactic Or Diagnostic Injection Subq/Im Completed 02/05/2019 04430 Biologic Agent Administration Completed 02/05/2019 72060 Therapeutic, Prophylactic Or Diagnostic Injection Subq/Im Completed 02/05/2019 01338 Nitric Oxide Gas Determination Completed Medical Devices Description No Information Available Encounters Type Date Location Provider Dx Diagnosis Office Visit 03/12/2019 [facility] Юлия Dasilva J45.50 Severe persistent 11:20a PROCUREMENT COORDINATOR-Iggy asthma, uncomplicated J30.1 Allergic rhinitis due to pollen J45.50 Severe persistent asthma, uncomplicated J30.2 Other seasonal allergic rhinitis J30.81 Allergic rhinitis due to animal (cat) (dog) hair and dander J30.1 Allergic rhinitis due to pollen J30.2 Other seasonal allergic rhinitis J30.81 Allergic rhinitis due to animal (cat) (dog) hair and dander J30.89 Other allergic rhinitis Assessments Date Code Description Provider 08/05/2019 J45.50 Severe persistent asthma, uncomplicated JOSE ALEJANDRO Keith 08/05/2019 J30.2 Other seasonal allergic rhinitis JOSE ALEJANDRO Keith 08/05/2019 J30.81 Allergic rhinitis due to animal (cat) (dog) Юлия Uldrich, PROCUREMENT COORDINATOR-C hair and dander 08/05/2019 J30.89 Other allergic rhinitis Юлия Uldrich, PROCUREMENT COORDINATOR-C 08/05/2019 J30.1 Allergic rhinitis due to pollen Юлия Uldrich, PROCUREMENT COORDINATOR-C 07/09/2019 J45.50 Severe persistent asthma, uncomplicated Юлия Uldrich, PROCUREMENT COORDINATOR-C 07/09/2019 J30.2 Other seasonal allergic rhinitis Nancy Ceja M.D. 07/09/2019 J30.2 Other seasonal allergic rhinitis Юлия Uldrich, PROCUREMENT COORDINATOR-C 07/09/2019 J30.81 Allergic rhinitis due to animal (cat) (dog) Nancy Ceja M.D. hair and dander 07/09/2019 J30.81 Allergic rhinitis due to animal (cat) (dog) Юлия Uldrich, PROCUREMENT COORDINATOR-C hair and dander 07/09/2019 J30.89 Other allergic rhinitis Nancy Ceja M.D. 07/09/2019 J30.89 Other allergic rhinitis Юлия Uldrich, PROCUREMENT COORDINATOR-C 07/09/2019 J30.1 Allergic rhinitis due to pollen Nancy Ceja M.D. 07/09/2019 J30.1 Allergic rhinitis due to pollen Юлия Uldrich, PROCUREMENT COORDINATOR-C 06/25/2019 J45.50 Severe persistent asthma, uncomplicated Юлия Uldrich, PROCUREMENT COORDINATOR-C 06/25/2019 J45.50 Severe persistent asthma, uncomplicated Nancy Ceja M.D. 06/25/2019 J30.2 Other seasonal allergic rhinitis Юлия Uldrich, PROCUREMENT COORDINATOR-C 06/25/2019 J45.50 Severe persistent asthma, uncomplicated Юлия Uldrich, PROCUREMENT COORDINATOR-C 06/25/2019 J30.81 Allergic rhinitis due to animal (cat) (dog) Юлия Uldrich, PROCUREMENT COORDINATOR-C hair and dander 06/25/2019 J30.2 Other seasonal allergic rhinitis Nancy Ceja M.D. 06/25/2019 J30.89 Other allergic rhinitis Юлия Uldrich, PROCUREMENT COORDINATOR-C 06/25/2019 J30.2 Other seasonal allergic rhinitis Юлия Uldrich, PROCUREMENT COORDINATOR-C 06/25/2019 J30.81 Allergic rhinitis due to animal (cat) (dog) Nancy Ceja M.D. hair and dander 06/25/2019 J30.81 Allergic rhinitis due to animal (cat) (dog) Юлия Uldrich, PROCUREMENT COORDINATOR-C hair and dander 06/25/2019 J30.89 Other allergic rhinitis Nancy Ceja M.D. 06/25/2019 J30.89 Other allergic rhinitis Юлия Uldrich, PROCUREMENT COORDINATOR-C 06/25/2019 J30.1 Allergic rhinitis due to pollen Юлия Uldrich, PROCUREMENT COORDINATOR-C 06/11/2019 J45.50 Severe persistent asthma, uncomplicated Юлия Uldrich, PROCUREMENT COORDINATOR-C 06/11/2019 J45.50 Severe persistent asthma, uncomplicated Nancy Ceja M.D. 06/11/2019 J45.50 Severe persistent asthma, uncomplicated Юлия Uldrich, PROCUREMENT COORDINATOR-C 06/11/2019 J30.2 Other seasonal allergic rhinitis Nancy Ceja M.D. 06/11/2019 J30.2 Other seasonal allergic rhinitis Юлия Uldrich, PROCUREMENT COORDINATOR-C 06/11/2019 J30.81 Allergic rhinitis due to animal (cat) (dog) Nancy Ceja M.D. hair and dander 06/11/2019 J30.81 Allergic rhinitis due to animal (cat) (dog) Юлия Uldrich, PROCUREMENT COORDINATOR-C hair and dander 06/11/2019 J30.89 Other allergic rhinitis Nancy Ceja M.D. 06/11/2019 J30.89 Other allergic rhinitis Юлия Uldrich, PROCUREMENT COORDINATOR-C 06/11/2019 J30.1 Allergic rhinitis due to pollen Юлия Uldrich, PROCUREMENT COORDINATOR-C 05/28/2019 J45.50 Severe persistent asthma, uncomplicated Юлия Uldrich, PROCUREMENT COORDINATOR-C 05/28/2019 J45.50 Severe persistent asthma, uncomplicated Nancy Ceja M.D. 05/28/2019 J45.50 Severe persistent asthma, uncomplicated Юлия Uldrich, PROCUREMENT COORDINATOR-C 05/28/2019 J30.2 Other seasonal allergic rhinitis Nancy Ceja M.D. 05/28/2019 J30.2 Other seasonal allergic rhinitis Юлия Uldrich, PROCUREMENT COORDINATOR-C 05/28/2019 J30.81 Allergic rhinitis due to animal (cat) (dog) Nancy Ceja M.D. hair and dander 05/28/2019 J30.81 Allergic rhinitis due to animal (cat) (dog) Юлия Uldrich, PROCUREMENT COORDINATOR-C hair and dander 05/28/2019 J30.89 Other allergic rhinitis Nancy Ceja M.D. 05/28/2019 J30.89 Other allergic rhinitis Юлия Uldrich, PROCUREMENT COORDINATOR-C 05/28/2019 J30.1 Allergic rhinitis due to pollen Юлия Uldrich, PROCUREMENT COORDINATOR-C 05/14/2019 J45.50 Severe persistent asthma, uncomplicated Юлия Uldrich, PROCUREMENT COORDINATOR-C 05/14/2019 J30.2 Other seasonal allergic rhinitis Юлия Uldrich, PROCUREMENT COORDINATOR-C 05/14/2019 J30.81 Allergic rhinitis due to animal (cat) (dog) Юлия Uldrich, PROCUREMENT COORDINATOR-C hair and dander 05/14/2019 J30.89 Other allergic rhinitis Юлия Uldrich, PROCUREMENT COORDINATOR-C 05/14/2019 J30.1 Allergic rhinitis due to pollen Юлия Uldrich, PROCUREMENT COORDINATOR-C 04/30/2019 J45.50 Severe persistent asthma, uncomplicated Юлия Uldrich, PROCUREMENT COORDINATOR-C 04/30/2019 J45.50 Severe persistent asthma, uncomplicated Nancy Ceja M.D. 04/30/2019 J45.50 Severe persistent asthma, uncomplicated Юлия Uldrich, PROCUREMENT COORDINATOR-C 04/30/2019 J30.2 Other seasonal allergic rhinitis Nancy Ceja M.D. 04/30/2019 J30.2 Other seasonal allergic rhinitis Юлия Uldrich, PROCUREMENT COORDINATOR-C 04/30/2019 J30.81 Allergic rhinitis due to animal (cat) (dog) Nancy Ceja M.D. hair and dander 04/30/2019 J30.81 Allergic rhinitis due to animal (cat) (dog) Юлия Uldrich, PROCUREMENT COORDINATOR-C hair and dander 04/30/2019 J30.89 Other allergic rhinitis Nancy Ceja M.D. 04/30/2019 J30.89 Other allergic rhinitis Люия Uldrich, PROCUREMENT COORDINATOR-C 04/16/2019 J45.50 Severe persistent asthma, uncomplicated Юлия Uldrich, PROCUREMENT COORDINATOR-C 04/16/2019 J45.50 Severe persistent asthma, uncomplicated Nancy Ceja M.D. 04/16/2019 J45.50 Severe persistent asthma, uncomplicated Юлия Uldrich, PROCUREMENT COORDINATOR-C 04/16/2019 J30.1 Allergic rhinitis due to pollen Nancy Ceja M.D. 04/16/2019 J30.1 Allergic rhinitis due to pollen Юлия Uldrich, PROCUREMENT COORDINATOR-C 04/16/2019 J30.2 Other seasonal allergic rhinitis Nancy Ceja M.D. 04/16/2019 J30.2 Other seasonal allergic rhinitis Юлия Uldrich, PROCUREMENT COORDINATOR-C 04/16/2019 J30.81 Allergic rhinitis due to animal (cat) (dog) Nancy Ceja M.D. hair and dander 04/16/2019 J30.81 Allergic rhinitis due to animal (cat) (dog) Юлия Uldrich, PROCUREMENT COORDINATOR-C hair and dander 04/16/2019 J30.89 Other allergic rhinitis Юлия Uldrich, PROCUREMENT COORDINATOR-C 04/02/2019 J45.50 Severe persistent asthma, uncomplicated Юлия Uldrich, PROCUREMENT COORDINATOR-C 04/02/2019 J45.50 Severe persistent asthma, uncomplicated Nancy Ceja M.D. 04/02/2019 J45.50 Severe persistent asthma, uncomplicated Юлия Uldrich, PROCUREMENT COORDINATOR-C 04/02/2019 J30.1 Allergic rhinitis due to pollen Nancy Ceja M.D. 04/02/2019 J30.1 Allergic rhinitis due to pollen Юлия Uldrich, PROCUREMENT COORDINATOR-C 04/02/2019 J30.2 Other seasonal allergic rhinitis Nancy Ceja M.D. 04/02/2019 J30.2 Other seasonal allergic rhinitis Юлия Uldrich, PROCUREMENT COORDINATOR-C 04/02/2019 J30.81 Allergic rhinitis due to animal (cat) (dog) Nancy Ceja M.D. hair and dander 04/02/2019 J30.81 Allergic rhinitis due to animal (cat) (dog) Юлия Uldrich, PROCUREMENT COORDINATOR-C hair and dander 04/02/2019 J30.89 Other allergic rhinitis Nancy Ceja M.D. 04/02/2019 J30.89 Other allergic rhinitis Юлия Uldrich, PROCUREMENT COORDINATOR-C 03/12/2019 J45.50 Severe persistent asthma, uncomplicated Юлия Uldrich, PROCUREMENT COORDINATOR-C 03/12/2019 J45.50 Severe persistent asthma, uncomplicated Nancy Ceja M.D. 03/12/2019 J30.1 Allergic rhinitis due to pollen Юлия Uldrich, PROCUREMENT COORDINATOR-C 03/12/2019 J45.50 Severe persistent asthma, uncomplicated Юлия Uldrich, PROCUREMENT COORDINATOR-C 03/12/2019 J30.2 Other seasonal allergic rhinitis Юлия Uldrich, PROCUREMENT COORDINATOR-C 03/12/2019 J30.1 Allergic rhinitis due to pollen Nancy Ceja M.D. 03/12/2019 J30.81 Allergic rhinitis due to animal (cat) (dog) Юлия Uldrich, PROCUREMENT COORDINATOR-C hair and dander 03/12/2019 J30.1 Allergic rhinitis due to pollen Юлия Uldrich, PROCUREMENT COORDINATOR-C 03/12/2019 J30.2 Other seasonal allergic rhinitis Nancy Ceja M.D. 03/12/2019 J30.2 Other seasonal allergic rhinitis Юлия Uldrich, PROCUREMENT COORDINATOR-C 03/12/2019 J30.81 Allergic rhinitis due to animal (cat) (dog) Nancy Ceja M.D. hair and dander 03/12/2019 J30.81 Allergic rhinitis due to animal (cat) (dog) Юлия Uldrich, PROCUREMENT COORDINATOR-C hair and dander 03/12/2019 J30.89 Other allergic rhinitis Юлия Uldrich, PROCUREMENT COORDINATOR-C 02/19/2019 J45.50 Severe persistent asthma, uncomplicated Nancy Ceja M.D. 02/19/2019 J45.50 Severe persistent asthma, uncomplicated Юлияmatt Dasilva, PROCUREMENT COORDINATOR-C 02/19/2019 J30.1 Allergic rhinitis due to pollen Nancy Ceja M.D. 02/19/2019 J30.1 Allergic rhinitis due to pollen Юлия Dasilva, PROCUREMENT COORDINATOR-C 02/19/2019 J30.2 Other seasonal allergic rhinitis Юлия Vidya, PROCUREMENT COORDINATOR-C 02/19/2019 J30.81 Allergic rhinitis due to animal (cat) (dog) Nancy Ceja M.D. hair and dander 02/19/2019 J30.81 Allergic rhinitis due to animal (cat) (dog) Юлия Vidya, PROCUREMENT COORDINATOR-C hair and dander 02/19/2019 J30.89 Other allergic rhinitis ЮлияMELL AriasP-C 02/05/2019 J45.50 Severe persistent asthma, uncomplicated Юлия Vidya, PROCUREMENT COORDINATOR-C 02/05/2019 J45.50 Severe persistent asthma, uncomplicated Nancy Ceja M.D. 02/05/2019 J45.50 Severe persistent asthma, uncomplicated Юлияmatt Dasilva, PROCUREMENT COORDINATOR-C 02/05/2019 J30.1 Allergic rhinitis due to pollen Nancy Ceja M.D. 02/05/2019 J30.1 Allergic rhinitis due to pollen ISA Keith-C 02/05/2019 J30.2 Other seasonal allergic rhinitis Nancy Ceja M.D. 02/05/2019 J30.2 Other seasonal allergic rhinitis Юлия Vidya, PROCUREMENT COORDINATOR-C 02/05/2019 J30.81 Allergic rhinitis due to animal (cat) (dog) Nancy Ceja M.D. hair and dander 02/05/2019 J30.81 Allergic rhinitis due to animal (cat) (dog) ISA Keith-C hair and dander 02/05/2019 J30.89 Other allergic rhinitis Юлия MELL DasilvaP-C 02/05/2019 R05 Cough ISA Keith-C Plan of Treatment Future Appointment(s):08/19/2019 11:40 am - JOSE ALEJANDRO [facility] at [place] [facility]ubd4808/05/2019 - ISA Keith-CJ45.50 Severe persistent asthma, lykyfohektwxpZ01.2 Other seasonal allergic ilcytkylP44.81 Allergic rhinitis due to animal (cat) (dog) hair and rionksE93.89 Other allergic jcdhafduZ85.1 Allergic rhinitis due to pollenRecommendations:Continue all medications as prescribed.Refrain from wearing perfumes/scented colognes while visitingour office. OK for Xolair( 225 mg every 2 weeks) today Continue the Dulera 2 puffs twice a dayContinue the Spiriva 1.25 mcg 2 puffs daily Continue the Azelestine 2 sprays daily Continue the fluticasone nasal spray daily Continue the cetirizine 1 daily Continue the montelukast 1 daily Continue the Ventolin 2 puffs every 4 hours as needed for cough, shortness of breath, chest tightness , shortness of breath, wheezing, or chest congestion. Xolair in 2 weeks Functional Status Description No Information Available Mental Status Description No Information Available Referrals Description No Information Available
--- OUTSIDE RECORDS SUMMARY | 2019-09-18 10:39 | XMS REPORT | Continuity of Care Document ---
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 [phone] Problems Active Problems Provider Date Allergic asthma [...] Medications SIG Qnty Indications Ordering Date Provider Advair HFA inhale two puffs by 12gm Юлия 08/13/2019 mouth twice a day MELL DasilvaP-C 230-21mcg/Act Aerosol Ipratropium Mcqueeney use with nebulizer 75ml Юлия 08/05/2019 am&pm Vidya REFERENCE LIBRARY ASSISTANT-C 0.02% Solution Xolair inject 225mg every 6units Юлия 08/05/2019 75mg/0.5ML Soln 2 weeks MELL DasilvaP-C Prefill Syringe Azelastine HCL [place] One [place] 30units Berta Dhaliwal, 05/27/2019 (Nasal) Into Each Nostril REFERENCE LIBRARY ASSISTANT-C 137mcg/[place] Once In The Morning Solution And Once AT Night Levalbuterol HCL use via nebulizer 30ml Юлия 04/04/2019 every 4 -6 hours Vidya REFERENCE LIBRARY ASSISTANT-C 1.25mg/3ML Nebulizer for shortness of breath, cough or wheezing Sodium Chloride Mix 1 with 1 vial 90ml Юлия 04/04/2019 0.9% of levalbuterol MELL DasilvaP-C Nebulizer solutions vial via nebulizer as needed Epipen 2-Elvin use as directed 2units Юлия 07/30/2018 MELL DasilvaP-C 0.3mg/0.3ML Solution Auto-Inject Cetirizine HCL 1 by mouth every 30tabs Jordana Maria, 08/28/2017 10mg day REFERENCE LIBRARY ASSISTANT-C Tablets Ventolin HFA 2 inhalations q4h 1units J45.40 Manan Farr, 10/15/2014 prn coughing or M.D. 108(90Base) mcg/Act wheezing Aerosol Albuterol Sulfate #1 via nebulizer 90ml J45.40 Юлия 10/13/2014 every 4-6 hours as Vidya REFERENCE LIBRARY ASSISTANT-C (2.5mg/3ML) 0.083% needed for cough, Nebulizer shortness of breath and wheezing Fluticasone two sprays in each 1units Manan Farr, 06/10/2013 Propionate nostril once daily M.D. 50mcg/Act Suspension Spiriva Respimat 2 inhalations once 1units J45.40 Юлия daily Mariseldrchase REFERENCE LIBRARY ASSISTANT-C 2.5mcg/Act Aerosol Furosemide 1 tabs every day [...] Qnty Indications Ordering Provider Date Biologic Agent MELL KeithP-C 08/19/2019 Administration Injection Biologic Agent Юлия Dasilva REFERENCE LIBRARY ASSISTANT-C 08/05/2019 Administration Injection Therapeutic, Prophylactic Or Nancy Ceja M.D. 08/05/2019 Diagnostic Injection Subq/Im Injection Biologic Agent Юлия Dasilva REFERENCE LIBRARY ASSISTANT-C 07/09/2019 Administration Injection Therapeutic, Prophylactic Or Юлия Vidya, REFERENCE LIBRARY ASSISTANT-C 07/09/2019 Diagnostic Injection Subq/Im Injection Biologic Agent Юлия Dasilva REFERENCE LIBRARY ASSISTANT-C 06/25/2019 Administration Injection Therapeutic, Prophylactic Or Юлия Vidya REFERENCE LIBRARY ASSISTANT-C 06/25/2019 Diagnostic Injection Subq/Im Injection Biologic Agent Юлия Vidya, REFERENCE LIBRARY ASSISTANT-C 06/11/2019 Administration Injection Therapeutic, Prophylactic Or Юлия Ulbharat, REFERENCE LIBRARY ASSISTANT-C 06/11/2019 Diagnostic Injection Subq/Im Injection Biologic Agent Юлия Vidya, REFERENCE LIBRARY ASSISTANT-C 05/28/2019 Administration Injection Therapeutic, Prophylactic Or Юлия Ulbharat, REFERENCE LIBRARY ASSISTANT-C 05/28/2019 Diagnostic Injection Subq/Im Injection Biologic Agent Юлия Vidya, REFERENCE LIBRARY ASSISTANT-C 05/14/2019 Administration Injection Therapeutic, Prophylactic Or Юлия Ulbharat, REFERENCE LIBRARY ASSISTANT-C 05/14/2019 Diagnostic Injection Subq/Im Injection Biologic Agent Юлия Uldrich, REFERENCE LIBRARY ASSISTANT-C 04/30/2019 Administration Injection Therapeutic, Prophylactic Or Юлия Uldrich, REFERENCE LIBRARY ASSISTANT-C 04/30/2019 Diagnostic Injection Subq/Im Injection Therapeutic, Prophylactic Or Юлия Uldrich, REFERENCE LIBRARY ASSISTANT-C 04/16/2019 Diagnostic Injection Subq/Im Injection Biologic Agent Юлия Uldrich, REFERENCE LIBRARY ASSISTANT-C 04/02/2019 Administration Injection Therapeutic, Prophylactic Or Юлия Uldrich, REFERENCE LIBRARY ASSISTANT-C 04/02/2019 Diagnostic Injection Subq/Im Injection Biologic Agent Юлия Uldrich, REFERENCE LIBRARY ASSISTANT-C 03/12/2019 Administration Injection Therapeutic, Prophylactic Or Юлия Uldrich, REFERENCE LIBRARY ASSISTANT-C 03/12/2019 Diagnostic Injection Subq/Im Injection Biologic Agent Юлия Uldrich, REFERENCE LIBRARY ASSISTANT-C 02/19/2019 Administration Injection Therapeutic, Prophylactic Or Юлия Uldrich, REFERENCE LIBRARY ASSISTANT-C 02/19/2019 Diagnostic Injection Subq/Im Injection Biologic Agent Юлия Uldrich, REFERENCE LIBRARY ASSISTANT-C 02/05/2019 Administration Injection Therapeutic, Prophylactic Or Юлия Uldrich, REFERENCE LIBRARY ASSISTANT-C 02/05/2019 Diagnostic Injection Subq/Im Injection Biologic Agent Юлия Uldrich, REFERENCE LIBRARY ASSISTANT-C 01/22/2019 Administration Injection Therapeutic, Prophylactic Or Юлия Uldrich, REFERENCE LIBRARY ASSISTANT-C 01/22/2019 Diagnostic Injection Subq/Im Injection Therapeutic, Prophylactic Or Юлия Uldrich, REFERENCE LIBRARY ASSISTANT-C 01/08/2019 Diagnostic Injection Subq/Im Injection Biologic Agent Юлия Uldrich, REFERENCE LIBRARY ASSISTANT-C 12/25/2018 Administration Injection Therapeutic, Prophylactic Or Nancy Ceja M.D. 12/25/2018 Diagnostic Injection Subq/Im Injection Biologic Agent Юлия Uldrich, REFERENCE LIBRARY ASSISTANT-C 12/11/2018 Administration Injection Therapeutic, Prophylactic Or Юлия Uldrich, REFERENCE LIBRARY ASSISTANT-C 12/11/2018 Diagnostic Injection Subq/Im Injection Biologic Agent Юлия Uldrich, REFERENCE LIBRARY ASSISTANT-C 11/26/2018 Administration Injection Therapeutic, Prophylactic Or Юлия Uldrich, REFERENCE LIBRARY ASSISTANT-C 11/26/2018 Diagnostic Injection Subq/Im Injection Biologic Agent Юлия Uldrich, REFERENCE LIBRARY ASSISTANT-C 11/13/2018 Administration Injection Therapeutic, Prophylactic Or Юлия Uldrich, REFERENCE LIBRARY ASSISTANT-C 11/13/2018 Diagnostic Injection Subq/Im Injection Biologic Agent Юлия Uldrich, REFERENCE LIBRARY ASSISTANT-C 10/30/2018 Administration Injection Therapeutic, Prophylactic Or Юлия Uldrich, REFERENCE LIBRARY ASSISTANT-C 10/30/2018 Diagnostic Injection Subq/Im Injection Biologic Agent Юлия Uldrich, REFERENCE LIBRARY ASSISTANT-C 10/16/2018 Administration Injection Therapeutic, Prophylactic Or Юлия Uldrich, REFERENCE LIBRARY ASSISTANT-C 10/16/2018 Diagnostic Injection Subq/Im Injection Biologic Agent Ania Eric, REFERENCE LIBRARY ASSISTANT-C 10/02/2018 Administration Injection Therapeutic, Prophylactic Or Ania Eric, REFERENCE LIBRARY ASSISTANT-C 10/02/2018 Diagnostic Injection Subq/Im Injection Biologic Agent Юлия Uldrich, REFERENCE LIBRARY ASSISTANT-C 09/18/2018 Administration Injection Therapeutic, Prophylactic Or Юлия Uldrich, REFERENCE LIBRARY ASSISTANT-C 09/18/2018 Diagnostic Injection Subq/Im Injection Biologic Agent Юлия Uldrich, REFERENCE LIBRARY ASSISTANT-C 09/04/2018 Administration Injection Therapeutic, Prophylactic Or Manan Farr M.D. 09/04/2018 Diagnostic Injection Subq/Im Injection Biologic Agent Юлия Uldrich, REFERENCE LIBRARY ASSISTANT-C 08/21/2018 Administration Injection Therapeutic, Prophylactic Or Nancy Ceja M.D. 08/21/2018 Diagnostic Injection Subq/Im Injection Biologic Agent Юлия Uldrich, REFERENCE LIBRARY ASSISTANT-C 08/07/2018 Administration Injection Therapeutic, Prophylactic Or Юлия Uldrich, REFERENCE LIBRARY ASSISTANT-C 08/07/2018 Diagnostic Injection Subq/Im Injection Celestone/Cortisone Leeanne Salamanca, 10/22/2014 [id number] 1 cc PH.D, RPA-C Injection Celestone/Cortisone Leeanne Salamanca, 10/13/2014 [id number] 1 cc PH.D, RPA-C Injection Injection Donovan Holliday M.D. 12/10/2012 Injection Injection Allergy Injection 12/10/2012 Injection Injection Allergy Injection 11/26/2012 Injection Injection Allergy Injection 11/12/2012 Injection Injection Donovan Myrna Holliday 10/29/2012 Injection Injection Allergy Injection 10/29/2012 Injection Injection Donovan Mg, Myrna 10/15/2012 Injection Injection Allergy Injection 10/15/2012 Injection Injection Donovan Holliday M.D. 10/01/2012 Injection Injection Donovan Mg, Myrna 09/17/2012 Injection Injection Donovan Holliday, Myrna 08/20/2012 Injection Injection Donovan Holliday, Myrna 07/30/2012 Injection Injection Nancy M Myrna Ceja 07/09/2012 Injection Injection Nancy M Myrna Ceja 06/18/2012 Injection Injection Nancy M Myrna Ceja 05/28/2012 Injection Injection Nancy M Myrna Ceja 05/14/2012 Injection Injection Nancy M Myrna Ceja 04/23/2012 Injection Injection Nancy Ceja M.D. 04/09/2012 Injection Injection Nancy M Myrna Ceja 03/26/2012 Injection Injection Nancy M Myrna Ceja 03/12/2012 Injection Injection Nancy Ceja M.D. 02/27/2012 Injection Injection Nancy M Myrna Ceja 02/13/2012 Injection Injection Nancy M Myrna Ceja 01/30/2012 Injection Injection Nancy M Myrna Ceja 01/16/2012 Injection Injection Nancy Ceja M.D. 01/02/2012 Injection Injection Nancy Ceja M.D. 12/19/2011 Injection Injection Nancy Alesha Ceja M.D. 12/05/2011 Injection Injection Nancy M Myrna Ceja 11/28/2011 Injection Injection Nancy Ceja M.D. 11/14/2011 Injection Injection Nancy Ceja M.D. 10/31/2011 Injection Injection Nancy Ceja M.D. 10/17/2011 Injection Injection Nancy Ceja M.D. 10/03/2011 Injection Injection Donovan Holliday M.D. 09/19/2011 Injection Injection Donovan Holliday M.D. 09/05/2011 Injection Injection Manan Farr, M.DRickie 07/06/2011 Injection Injection Donovan Mg, M.DRickie [...] Injection Donovan Mg, M.DRickie 10/11/2010 Injection Injection Donovna Mg, M.DRickie 09/20/2010 Injection Injection Donovan Mg, M.D. 08/23/2010 Injection Injection Donovan Mg, M.DRickie 07/26/2010 [...] Mg, M.D. 12/21/2009 Injection Injection Donovan Mg, M.D. 12/09/2009 Injection Injection Donovan Mg, M.DRickie 11/23/2009 Injection Injection Donovan Mg, M.DRickie 11/09/2009 Injection Injection Donovan Mg, M.DRickie 10/26/2009 Injection Injection Donovan Mg, M.DRickie 10/12/2009 Injection Injection Donovan Mg, M.DRickie 09/28/2009 Injection Injection Donovan Mg, M.DRickie 09/14/2009 Injection Injection Nancy Ceja, Myrna 08/24/2009 Injection Injection Christopher Mares, 08/12/2009 Injection M.DRickie Injection Donovan Mg, CarloDRickie 07/29/2009 Injection Injection Donovan Mg, Alesha.Jairo 07/13/2009 Injection Injection Christopher Mares, 07/01/2009 Injection [...] Mg, M.DRickie 12/10/2008 Injection Injection Donovan Mg, Alesha.DRickie 12/03/2008 Injection Injection Donovan Mg, M.DRickie 11/24/2008 Injection Injection Donovan Mg, M.DRickie 11/19/2008 Injection Injection Donovan Mg, M.DRickie 11/12/2008 Injection Injection Donovan Mg, Alesha.DRickie 11/03/2008 Injection Injection Donovan Mg, M.DRickie 10/15/2008 Injection Injection Donovan Mg, M.DRickie 10/01/2008 Injection Injection Donovan Mg, M.DRickie 09/17/2008 Injection Injection Donovan Mg, M.DRickie 09/03/2008 Injection Injection Donovan Mg, M.DRickie 08/20/2008 Injection Injection Donovan Mg, CarloDRickie 08/06/2008 Injection Injection Donovan Mg, CarloDRickie 07/14/2008 Injection Injection Donovan Mg, Myrna 07/02/2008 Injection Injection Donovan Mg, Myrna 06/16/2008 Injection Injection Donovan Mg, CarloDRickie 06/11/2008 Injection Injection Donovan Mg, Alesha.DRickie 06/04/2008 Injection Injection Donovan Mg, Myrna 05/28/2008 Injection Injection Donovan Mg, Myrna 05/21/2008 Injection Injection Donovan Mg, CarloDRickie 05/14/2008 Injection Injection Donovan Mg, CarloDRickie 05/07/2008 Injection Injection Donovan Mg, Myrna 04/30/2008 Injection Injection Donovan Mg, CarloDRickie 04/23/2008 Injection Injection Donovan Mg, MRickieDRickie 04/16/2008 Injection Injection Donovan Mg, M.DRickie 04/09/2008 Injection Injection Donovan Mg, CarloDRickie 04/02/2008 Injection Injection Donovan Mg, CarloDRickie 03/26/2008 Injection Injection Donovan Mg, CarloDRickie 03/19/2008 Injection Injection Donovan Mg, CarloDRickie 03/12/2008 Injection Injection Donovan Mg, Myrna 03/05/2008 Injection Injection Donovan Mg, Myrna 02/27/2008 Injection Injection Donovan Holliday M.D. 02/20/2008 Injection Injection Donovan Holliday M.D. 02/13/2008 Injection Injection Donovan Holliday M.D. 02/04/2008 Injection Injection Donovan Holliday M.D. 01/30/2008 [...] CPT Code Status Date Vaccine Lot # 32716 Given 04/22/2013 Influenza Vaccine 44167 Given 07/23/2010 Pneumococcal Vaccine 13963 Given Unknown Pneumococcal Vaccine 42666 Given Unknown Influenza Vaccine 88150 Given Unknown Influenza Vaccine 40557 Given Unknown Influenza Vaccine 59350 Given Unknown Influenza Vaccine 90452 Given Unknown Influenza Vaccine Vital Signs Date Vital Result Comment 08/19/2019 11:28am Height 65 inches 5'5" Weight 241.00 lb Weight 109.318 kg Respiratory Rate 16 /min Heart Rate 88 /min O2 % BldC Oximetry 98 % BP Systolic 132 mmHg BP Diastolic 62 mmHg BMI (Body Mass Index) 40.1 kg/m2 08/05/2019 11:18am Height 65 inches 5'5" Weight 237.00 lb Weight 107.503 kg Respiratory Rate 20 /min Heart Rate 102 /min O2 % BldC Oximetry 95 % BP Systolic 124 mmHg BP Diastolic 68 mmHg BMI (Body Mass Index) 39.4 kg/m2 Results Description No Information Available Procedures Date Code Description Status 08/19/2019 53983 Biologic Agent Administration Completed 08/05/2019 19433 Biologic Agent Administration Completed 08/05/2019 14895 Therapeutic, Prophylactic Or Diagnostic Injection Subq/Im Completed 08/05/2019 21107 Ippb Completed 07/09/2019 02604 Biologic Agent Administration Completed 07/09/2019 52198 Therapeutic, Prophylactic Or Diagnostic Injection Subq/Im Completed 06/25/2019 99578 Biologic Agent Administration Completed 06/25/2019 43926 Therapeutic, Prophylactic Or Diagnostic Injection Subq/Im Completed 06/25/2019 36263 Ippb Completed 06/11/2019 49185 Biologic Agent Administration Completed 06/11/2019 19121 Therapeutic, Prophylactic Or Diagnostic Injection Subq/Im Completed 05/28/2019 19935 Therapeutic, Prophylactic Or Diagnostic Injection Subq/Im Completed 05/28/2019 82443 Biologic Agent Administration Completed 05/14/2019 75241 Biologic Agent Administration Completed 05/14/2019 06109 Therapeutic, Prophylactic Or Diagnostic Injection Subq/Im Completed 04/30/2019 74959 Biologic Agent Administration Completed 04/30/2019 19570 Therapeutic, Prophylactic Or Diagnostic Injection Subq/Im Completed 04/16/2019 66631 Therapeutic, Prophylactic Or Diagnostic Injection Subq/Im Completed 04/02/2019 45872 Biologic Agent Administration Completed 04/02/2019 65279 Therapeutic, Prophylactic Or Diagnostic Injection Subq/Im Completed 03/12/2019 49433 Biologic Agent Administration Completed 03/12/2019 68769 Therapeutic, Prophylactic Or Diagnostic Injection Subq/Im Completed 02/19/2019 77519 Biologic Agent Administration Completed 02/19/2019 44085 Therapeutic, Prophylactic Or Diagnostic Injection Subq/Im Completed Medical Devices Description No Information Available Encounters Type Date Location Provider Dx Diagnosis Office Visit 03/12/2019 [facility] Юлия Dasilva J45.50 Severe persistent 11:20a REFERENCE LIBRARY ASSISTANT-C asthma, uncomplicated J30.1 Allergic rhinitis due to pollen J45.50 Severe persistent asthma, uncomplicated J30.2 Other seasonal allergic rhinitis J30.81 Allergic rhinitis due to animal (cat) (dog) hair and dander J30.1 Allergic rhinitis due to pollen J30.2 Other seasonal allergic rhinitis J30.81 Allergic rhinitis due to animal (cat) (dog) hair and dander J30.89 Other allergic rhinitis Assessments Date Code Description Provider 08/19/2019 J45.50 Severe persistent asthma, uncomplicated Nancy Ceja M.D. 08/19/2019 J45.50 Severe persistent asthma, uncomplicated Юлия Uldrich, REFERENCE LIBRARY ASSISTANT-C 08/19/2019 J30.2 Other seasonal allergic rhinitis Nancy Ceja M.D. 08/19/2019 J30.2 Other seasonal allergic rhinitis Юлия Uldrich, REFERENCE LIBRARY ASSISTANT-C 08/19/2019 J30.81 Allergic rhinitis due to animal (cat) (dog) Nancy Ceja M.D. hair and dander 08/19/2019 J30.81 Allergic rhinitis due to animal (cat) (dog) Юлия Uldrich, REFERENCE LIBRARY ASSISTANT-C hair and dander 08/19/2019 J30.89 Other allergic rhinitis Nancy Ceja M.D. 08/19/2019 J30.89 Other allergic rhinitis Юлия Uldrich, REFERENCE LIBRARY ASSISTANT-C 08/19/2019 J30.1 Allergic rhinitis due to pollen Юлия Uldrich, REFERENCE LIBRARY ASSISTANT-C 08/05/2019 J45.50 Severe persistent asthma, uncomplicated Nancy Ceja M.D. 08/05/2019 J45.50 Severe persistent asthma, uncomplicated Юлия Uldrich, REFERENCE LIBRARY ASSISTANT-C 08/05/2019 J30.2 Other seasonal allergic rhinitis Nancy Ceja M.D. 08/05/2019 J30.2 Other seasonal allergic rhinitis Юлия Uldrich, REFERENCE LIBRARY ASSISTANT-C 08/05/2019 J30.81 Allergic rhinitis due to animal (cat) (dog) Nancy Ceja M.D. hair and dander 08/05/2019 J30.81 Allergic rhinitis due to animal (cat) (dog) Юлия Uldrich, REFERENCE LIBRARY ASSISTANT-C hair and dander 08/05/2019 J30.89 Other allergic rhinitis Nancy Ceja M.D. 08/05/2019 J30.89 Other allergic rhinitis Юлия Uldrich, REFERENCE LIBRARY ASSISTANT-C 08/05/2019 J30.1 Allergic rhinitis due to pollen Юлия Uldrich, REFERENCE LIBRARY ASSISTANT-C 07/09/2019 J45.50 Severe persistent asthma, uncomplicated Юлия Uldrich, REFERENCE LIBRARY ASSISTANT-C 07/09/2019 J30.2 Other seasonal allergic rhinitis Nancy Ceja M.D. 07/09/2019 J30.2 Other seasonal allergic rhinitis Юлия Uldrich, REFERENCE LIBRARY ASSISTANT-C 07/09/2019 J30.81 Allergic rhinitis due to animal (cat) (dog) Nancy Ceja M.D. hair and dander 07/09/2019 J30.81 Allergic rhinitis due to animal (cat) (dog) Юлия Uldrich, REFERENCE LIBRARY ASSISTANT-C hair and dander 07/09/2019 J30.89 Other allergic rhinitis Nancy Ceja M.D. 07/09/2019 J30.89 Other allergic rhinitis Юлия Uldrich, REFERENCE LIBRARY ASSISTANT-C 07/09/2019 J30.1 Allergic rhinitis due to pollen Nancy Ceja M.D. 07/09/2019 J30.1 Allergic rhinitis due to pollen Юлия Uldrich, REFERENCE LIBRARY ASSISTANT-C 06/25/2019 J45.50 Severe persistent asthma, uncomplicated Юлия Uldrich, REFERENCE LIBRARY ASSISTANT-C 06/25/2019 J45.50 Severe persistent asthma, uncomplicated Nancy Ceja M.D. 06/25/2019 J30.2 Other seasonal allergic rhinitis Юлия Uldrich, REFERENCE LIBRARY ASSISTANT-C 06/25/2019 J45.50 Severe persistent asthma, uncomplicated Юлия Uldrich, REFERENCE LIBRARY ASSISTANT-C 06/25/2019 J30.81 Allergic rhinitis due to animal (cat) (dog) Юлия Uldrich, REFERENCE LIBRARY ASSISTANT-C hair and dander 06/25/2019 J30.2 Other seasonal allergic rhinitis Nancy Ceja M.D. 06/25/2019 J30.89 Other allergic rhinitis Юлия Uldrich, REFERENCE LIBRARY ASSISTANT-C 06/25/2019 J30.2 Other seasonal allergic rhinitis Юлия Uldrich, REFERENCE LIBRARY ASSISTANT-C 06/25/2019 J30.81 Allergic rhinitis due to animal (cat) (dog) Nancy Ceja M.D. hair and dander 06/25/2019 J30.81 Allergic rhinitis due to animal (cat) (dog) Юлия Uldrich, REFERENCE LIBRARY ASSISTANT-C hair and dander 06/25/2019 J30.89 Other allergic rhinitis Nancy Ceja M.D. 06/25/2019 J30.89 Other allergic rhinitis Юлия Uldrich, REFERENCE LIBRARY ASSISTANT-C 06/25/2019 J30.1 Allergic rhinitis due to pollen Юлия Uldrich, REFERENCE LIBRARY ASSISTANT-C 06/11/2019 J45.50 Severe persistent asthma, uncomplicated Юлия Uldrich, REFERENCE LIBRARY ASSISTANT-C 06/11/2019 J45.50 Severe persistent asthma, uncomplicated Nancy Ceja M.D. 06/11/2019 J45.50 Severe persistent asthma, uncomplicated Юлия Uldrich, REFERENCE LIBRARY ASSISTANT-C 06/11/2019 J30.2 Other seasonal allergic rhinitis Nancy Ceja M.D. 06/11/2019 J30.2 Other seasonal allergic rhinitis Юлия Uldrich, REFERENCE LIBRARY ASSISTANT-C 06/11/2019 J30.81 Allergic rhinitis due to animal (cat) (dog) Nancy Ceja M.D. hair and dander 06/11/2019 J30.81 Allergic rhinitis due to animal (cat) (dog) Юлия Uldrich, REFERENCE LIBRARY ASSISTANT-C hair and dander 06/11/2019 J30.89 Other allergic rhinitis Nancy Ceja M.D. 06/11/2019 J30.89 Other allergic rhinitis Юлия Uldrich, REFERENCE LIBRARY ASSISTANT-C 06/11/2019 J30.1 Allergic rhinitis due to pollen Юлия Uldrich, REFERENCE LIBRARY ASSISTANT-C 05/28/2019 J45.50 Severe persistent asthma, uncomplicated Юлия Uldrich, REFERENCE LIBRARY ASSISTANT-C 05/28/2019 J45.50 Severe persistent asthma, uncomplicated Nancy Ceja M.D. 05/28/2019 J45.50 Severe persistent asthma, uncomplicated Юлия Uldrich, REFERENCE LIBRARY ASSISTANT-C 05/28/2019 J30.2 Other seasonal allergic rhinitis Nancy Ceja M.D. 05/28/2019 J30.2 Other seasonal allergic rhinitis Юлия Uldrich, REFERENCE LIBRARY ASSISTANT-C 05/28/2019 J30.81 Allergic rhinitis due to animal (cat) (dog) Nancy Ceja M.D. hair and dander 05/28/2019 J30.81 Allergic rhinitis due to animal (cat) (dog) Юлия Uldrich, REFERENCE LIBRARY ASSISTANT-C hair and dander 05/28/2019 J30.89 Other allergic rhinitis Nancy Ceja M.D. 05/28/2019 J30.89 Other allergic rhinitis Юлия Uldrich, REFERENCE LIBRARY ASSISTANT-C 05/28/2019 J30.1 Allergic rhinitis due to pollen Юлия Uldrich, REFERENCE LIBRARY ASSISTANT-C 05/14/2019 J45.50 Severe persistent asthma, uncomplicated Юлия Uldrich, REFERENCE LIBRARY ASSISTANT-C 05/14/2019 J30.2 Other seasonal allergic rhinitis Юлия Uldrich, REFERENCE LIBRARY ASSISTANT-C 05/14/2019 J30.81 Allergic rhinitis due to animal (cat) (dog) Юлия Uldrich, [facility] hair and dander 05/14/2019 J30.89 Other allergic rhinitis Юлия Uldrich, REFERENCE LIBRARY ASSISTANT-C 05/14/2019 J30.1 Allergic rhinitis due to pollen Юлия Uldrich, REFERENCE LIBRARY ASSISTANT-C 04/30/2019 J45.50 Severe persistent asthma, uncomplicated Юлия Uldrich, REFERENCE LIBRARY ASSISTANT-C 04/30/2019 J45.50 Severe persistent asthma, uncomplicated Nancy Ceja M.D. 04/30/2019 J45.50 Severe persistent asthma, uncomplicated Юлия Uldrich, REFERENCE LIBRARY ASSISTANT-C 04/30/2019 J30.2 Other seasonal allergic rhinitis Nancy Ceja M.D. 04/30/2019 J30.2 Other seasonal allergic rhinitis Юлия [facility], REFERENCE LIBRARY ASSISTANT-C 04/30/2019 J30.81 Allergic rhinitis due to animal (cat) (dog) Nancy Ceja M.D. hair and dander 04/30/2019 J30.81 Allergic rhinitis due to animal (cat) (dog) Юлия [facility], [facility]-C hair and dander 04/30/2019 J30.89 Other allergic rhinitis Nancy Ceja M.D. 04/30/2019 J30.89 Other allergic rhinitis Юлия Uldrich, REFERENCE LIBRARY ASSISTANT-C 04/16/2019 J45.50 Severe persistent asthma, uncomplicated Юлия Uldrich, REFERENCE LIBRARY ASSISTANT-C 04/16/2019 J45.50 Severe persistent asthma, uncomplicated Nancy Ceja M.D. 04/16/2019 J45.50 Severe persistent asthma, uncomplicated Юлия Uldrich, REFERENCE LIBRARY ASSISTANT-C 04/16/2019 J30.1 Allergic rhinitis due to pollen Nancy Ceja M.D. 04/16/2019 J30.1 Allergic rhinitis due to pollen Юлия Ulich, REFERENCE LIBRARY ASSISTANT-C 04/16/2019 J30.2 Other seasonal allergic rhinitis Nancy Ceja M.D. 04/16/2019 J30.2 Other seasonal allergic rhinitis Юлия Uldrich, REFERENCE LIBRARY ASSISTANT-C 04/16/2019 J30.81 Allergic rhinitis due to animal (cat) (dog) Nancy Ceja M.D. hair and dander 04/16/2019 J30.81 Allergic rhinitis due to animal (cat) (dog) Юлия Uldrich, REFERENCE LIBRARY ASSISTANT-C hair and dander 04/16/2019 J30.89 Other allergic rhinitis Юлия Uldrich, REFERENCE LIBRARY ASSISTANT-C 04/02/2019 J45.50 Severe persistent asthma, uncomplicated Юлия Uldrich, REFERENCE LIBRARY ASSISTANT-C 04/02/2019 J45.50 Severe persistent asthma, uncomplicated Nancy Ceja M.D. 04/02/2019 J45.50 Severe persistent asthma, uncomplicated Юлия Uldrich, REFERENCE LIBRARY ASSISTANT-C 04/02/2019 J30.1 Allergic rhinitis due to pollen Nancy Ceja M.D. 04/02/2019 J30.1 Allergic rhinitis due to pollen Юлия Ulich, REFERENCE LIBRARY ASSISTANT-C 04/02/2019 J30.2 Other seasonal allergic rhinitis Nancy Ceja M.D. 04/02/2019 J30.2 Other seasonal allergic rhinitis Юлия Uldrich, REFERENCE LIBRARY ASSISTANT-C 04/02/2019 J30.81 Allergic rhinitis due to animal (cat) (dog) Nancy Ceja M.D. hair and dander 04/02/2019 J30.81 Allergic rhinitis due to animal (cat) (dog) Юлия Uldrich, REFERENCE LIBRARY ASSISTANT-C hair and dander 04/02/2019 J30.89 Other allergic rhinitis Nancy Ceja M.D. 04/02/2019 J30.89 Other allergic rhinitis Юлия Uldrich, REFERENCE LIBRARY ASSISTANT-C 03/12/2019 J45.50 Severe persistent asthma, uncomplicated Юлия Uldrich, REFERENCE LIBRARY ASSISTANT-C 03/12/2019 J45.50 Severe persistent asthma, uncomplicated Nancy Ceja M.D. 03/12/2019 J30.1 Allergic rhinitis due to pollen Юлия Uldrich, REFERENCE LIBRARY ASSISTANT-C 03/12/2019 J45.50 Severe persistent asthma, uncomplicated Юлия Uldrich, REFERENCE LIBRARY ASSISTANT-C 03/12/2019 J30.2 Other seasonal allergic rhinitis Юлия Uldrich, REFERENCE LIBRARY ASSISTANT-C 03/12/2019 J30.1 Allergic rhinitis due to pollen Nancy Ceja M.D. 03/12/2019 J30.81 Allergic rhinitis due to animal (cat) (dog) Юлия Uldrich, REFERENCE LIBRARY ASSISTANT-C hair and dander 03/12/2019 J30.1 Allergic rhinitis due to pollen Юлия Uldrich, REFERENCE LIBRARY ASSISTANT-C 03/12/2019 J30.2 Other seasonal allergic rhinitis Nancy Ceja M.D. 03/12/2019 J30.2 Other seasonal allergic rhinitis Юлия Uldrich, REFERENCE LIBRARY ASSISTANT-C 03/12/2019 J30.81 Allergic rhinitis due to animal (cat) (dog) Nancy Ceja M.D. hair and dander 03/12/2019 J30.81 Allergic rhinitis due to animal (cat) (dog) Юлия Uldrich, REFERENCE LIBRARY ASSISTANT-C hair and dander 03/12/2019 J30.89 Other allergic rhinitis Юлия Uldrich, REFERENCE LIBRARY ASSISTANT-C 02/19/2019 J45.50 Severe persistent asthma, uncomplicated Nancy Ceja M.D. 02/19/2019 J45.50 Severe persistent asthma, uncomplicated Юлия Uldrich, REFERENCE LIBRARY ASSISTANT-C 02/19/2019 J30.1 Allergic rhinitis due to pollen Nancy Ceja M.D. 02/19/2019 J30.1 Allergic rhinitis due to pollen Юлия Uldrich, REFERENCE LIBRARY ASSISTANT-C 02/19/2019 J30.2 Other seasonal allergic rhinitis Юлия Uldrich, REFERENCE LIBRARY ASSISTANT-C 02/19/2019 J30.81 Allergic rhinitis due to animal (cat) (dog) Nancy Ceja M.D. hair and dander 02/19/2019 J30.81 Allergic rhinitis due to animal (cat) (dog) JOSE ALEJANDRO Keith hair and dander 02/19/2019 J30.89 Other allergic rhinitis JOSE ALEJANDRO Keith Plan of Treatment Future Appointment(s):09/16/2019 11:20 am - JOSE ALEJANDRO Keith at [facility]09/02/2019 11:20 am - JOSE ALEJANDRO Keith at [facility]08/19/2019 - MYNOR KeithCJ45.50 Severe persistent asthma, [id number] Other seasonal allergic [id number] Allergic rhinitis due to animal (cat) ( dog) hair and dbaccjT48.89 Other allergic [id number] Allergic rhinitis due to pollenRecommendations:Continue all medications [...]
[2019-09-18 11:56] VITALS: BP 110/64
--- NOTE | 2019-09-18 12:23 | UC ---
Laceration HPI - HPI Summary HPI Summary: 69yo female presenting with skin tear on dorsal left wrist. Patient states this happened yesterday afternoon when she "reached into the washer and caught her arm on the rubber gasket." States she rinsed it out immediately. States it stopped bleeding "for the most part but keeps oozing." Notes tender to touch. Also notes bruising because she "bruises very easily." No blood thinners but takes aspirin daily. Adds that she "has a cough because she is getting over bronchitis." - History Of Current Complaint Chief Complaint: UCLaceration Stated Complaint: LEFT FOREARM LACERATION Hx Obtained From: Patient Pain Intensity: 4 Pain Scale Used: 0-10 Numeric - Allergies/Home Medications Allergies/Adverse Reactions: Allergies Allergy/AdvReac Type Severity Reaction Status Date / Time Penicillins Allergy Hives Verified 09/18/19 11:56 piroxicam [From Feldene] Allergy Blisters Verified 09/18/19 11:56 environmental Allergy Difficulty Uncoded 09/18/19 11:56 Breathing Home Medications: Home Medications Aspirin [Aspirin Adult Low Dose] 81 mg PO QPM 01/20/15 [History Confirmed ] Azelastine 0.15% NASAL(NF) [Astepro 0.15% NASAL (NF)] 1 spray NASAL BID [History Confirmed 09/19/19] Irbesartan (NF) [Avapro (NF)] 75 mg PO QPM 01/20/15 [History Confirmed 09/19/19] LevoCETirizine TAB (NF) [Xyzal TAB (NF)] 5 mg PO QPM 01/20/15 [History Confirmed 09/19/19] Levothyroxine TAB* [Synthroid TAB*] 125 mcg PO DAILY 01/20/15 [History Confirmed 09/19/19] Montelukast Sodium TAB* [Singulair TAB*] 10 mg PO QPM 01/20/15 [History Confirmed 09/19/19] Albuterol HFA INHALER* [Ventolin HFA Inhaler*] 2 puff INH Q4H PRN 11/09/17 [ History Confirmed 09/19/19] Allopurinol TAB* [Zyloprim 100 MG TAB*] 300 mg PO DAILY 11/09/17 [History Confirmed 09/19/19] Atorvastatin* [Lipitor*] 20 mg PO QPM 11/09/17 [History Confirmed 09/19/19] Furosemide TAB* [Lasix TAB*] 80 mg PO BID 11/09/17 [History Confirmed 09/19/19] Nystatin CREAM* 1 applic TOPICAL TID PRN 11/09/17 [History Confirmed 09/19/19] Pantoprazole TAB * [Protonix TAB (NF)] 40 mg PO QPM 11/09/17 [History Confirmed 09/19/19] Potassium Chlor TAB* [Klor Con ER TAB*] 10 meq PO DAILY 11/09/17 [History Confirmed 09/19/19] Spironolactone TAB* [Aldactone TAB*] 12.5 mg PO DAILY 11/09/17 [History Confirmed 09/19/19] Tiotropium CAPSULE (NF) [Spiriva CAP.INH*] 2 cap.inh INH DAILY 11/09/17 [ History Confirmed 09/19/19] Acetaminophen [Pain Relief] 500 mg PO DAILY 09/18/19 [History Confirmed 09/19/19 ] Fluticas/Salmet 230/21 HFA(NF) [Advair HFA 23O/21 (NF)] 2 puff INH BID 09/18/19 [History Confirmed 09/19/19] Ipratropium/Albuterol Sulfate [Iprat-Albut 0.5-3(2.5) mg/3 ml] 3 ml INH BID [History Confirmed 09/19/19] Iron Transfusion 1 dose IV SEE INSTRUCTIONS 09/18/19 [History Confirmed 09/19/19 ] Magnesium Oxide [Magnesium] 400 mg PO DAILY 09/18/19 [History Confirmed 09/19/19 ] PMH/Surg Hx/FS Hx/Imm Hx Respiratory History: Bronchitis - Surgical History Surgical History: Yes Surgery Procedure, Year, and Place: stents. T&A. chad. appy. L carotid [place] coil. Kidney stone blasted. 03/2015 cardiac bypass. mitral valve repair - Family History Known Family History: Positive: Cardiac Disease, Hypertension - Social History Alcohol Use: Occasionally Substance Use Type: None Smoking Status (MU): Former Smoker Type: Cigarettes When Did the Patient Quit Smoking/Using Tobacco: 1970 - Immunization History Most Recent Influenza Vaccination: 2013 Most Recent Tetanus Shot: 2011 Most Recent Pneumonia Vaccination: current Review of Systems All Other Systems Reviewed And Are Negative: No Constitutional: Positive: Negative Skin: Positive: Other - "oozing skin tear with bruising" left dorsal wrist Respiratory: Positive: Cough - "getting over bronchitis" Cardiovascular: Positive: Negative Gastrointestinal: Positive: Negative Musculoskeletal: Positive: Negative Neurological/Mental Status: Positive: Negative Physical Exam - Summary Physical Exam Summary: Vital Signs Reviewed: Yes A+Ox3, no distress Eyes: Conjunctiva Clear ENT: Hearing grossly normal neck: supple Respiratory: Positive: No respiratory distress, No accessory muscle use Cardiovascular: skin color reflect adequate perfusion Musculoskeletal Exam: SEN x 4 without difficulty Neurological: Positive: Alert, ambulatory without difficulty Psychological: Positive: Normal Response To Family Skin: Positive: ~3.5 cm long horizontal superficial skin tear noted on dorsal left wrist, minimal bleeding, skin flap not well approximated, significant surrounding ecchymosis, mild TTP Vital Signs: Initial Vital Signs Temp 97.3 F 09/18/19 11:38 Pulse 87 09/18/19 11:38 Resp 16 09/18/19 11:38 BP 110/64 09/18/19 11:38 Pulse Ox 99 09/18/19 11:38 Procedures - Procedure Summary Procedure Summary: A time out was performed with Claudette Bates RN and ABIMAEL Tenorio. I proceeded to remove the devitalized tissue from the skin tear on the patient's left wrist with sterile forceps and scissors. Patient tolerated procedure well. Laceration Course/Dx - Course/Dx Course Of Treatment: Patient's skin tear was cleansed. A time out was performed with Claudette Bates RN and ABIMAEL Tenorio. I proceeded to remove the devitalized tissue from the skin tear on the patient's left wrist with sterile forceps and scissors. Patient tolerated procedure well. A dressing was then applied. I educated patient on wound care, protecting the wound, and instructed to monitor for s/s of infection. Instructed to keep bandage on for 7 days or longer if possible. Patient voiced understanding and agreed with treatment plan. Patient states UTD on tetanus - Diagnosis Provider Diagnosis: Tear of skin of left wrist Discharge ED - Sign-Out/Discharge Documenting (check all that apply): Patient Departure All imaging exams completed and their final reports reviewed: No Studies - Discharge Plan Condition: Stable Disposition: HOME Patient Education Materials: Skin Tear (ED) Referrals: Lorraine Brown MD [Primary Care Provider] - If Needed Additional Instructions: Keep the bandage on for the next 7 days or longer if you can. Keep the area protected. Go to the emergency room if you experience increasing pain, drainage, or fever. - Billing Disposition and Condition Condition: STABLE Disposition: Home - Attestation Statements Provider Attestation: This patient was not seen by me. I was available for consult. Chart reviewed. KOMAL
== END 2019-09-18 13:18 | disposition home or self-care (01) ==
LOC: UCCORT 10:30
DX: S61.512A Laceration without foreign body of left wrist, initial encounter (principal); Z88.0 Allergy status to penicillin; Z88.8 Allergy status to other drugs, medicaments and biological substances; Z91.09 Other allergy status, other than to drugs and biological substances; Z79.82 Long term (current) use of aspirin; Z95.1 Presence of aortocoronary bypass graft; Z95.2 Presence of prosthetic heart valve; Z87.891 Personal history of nicotine dependence; W23.1XXA Caught, crushed, jammed, or pinched between stationary objects, initial encounter; Y92.9 Unspecified place or not applicable
CPT/HCPCS: 99212; G0463

== ENCOUNTER 2019-09-19 10:17 | Emergency (ER) | payer MEDICARE, BC ==
[2019-09-19 10:37] VITALS: BP 107/61
--- NOTE | 2019-09-19 11:01 | UC ---
Skin Complaint HPI - HPI Summary HPI Summary: Pt presents with c/o of left forearm wound that has "blood leaking through" bandage that was applied here on 09/18/19. Pt was seen yesterday for skin tear sustained through "bumping" arm. Pt is concerned because she saw blood "leaking our from under bandage this morning" - History of Current Complaint Chief Complaint: UCSkin Time Seen by Provider: 09/19/19 10:54 Stated Complaint: LEFT FOREARM LACERATION F/U Hx Obtained From: Patient ?: No Onset/Duration: Sudden Onset, Still Present Skin Exposure Onset/Duration: Hours Ago Timing: Constant Onset Severity: Moderate Current Severity: Mild Pain Intensity: 4 Location: Discrete - left distal posterior forearm Character: Raised Aggravating Factor(s): Touch Alleviating Factor(s): Nothing Associated Signs & Symptoms: Positive: Tenderness Related History: Trauma - minor, trauma - Allergy/Home Medications Allergies/Adverse Reactions: Allergies Allergy/AdvReac Type Severity Reaction Status Date / Time Penicillins Allergy Hives Verified 09/18/19 11:56 piroxicam [From Feldene] Allergy Blisters Verified 09/18/19 11:56 environmental Allergy Difficulty Uncoded 09/18/19 11:56 Breathing Home Medications: Home Medications Aspirin [Aspirin Adult Low Dose] 81 mg PO QPM 01/20/15 [History Confirmed ] Azelastine 0.15% NASAL(NF) [Astepro 0.15% NASAL (NF)] 1 spray NASAL BID [History Confirmed 09/19/19] Irbesartan (NF) [Avapro (NF)] 75 mg PO QPM 01/20/15 [History Confirmed 09/19/19] LevoCETirizine TAB (NF) [Xyzal TAB (NF)] 5 mg PO QPM 01/20/15 [History Confirmed 09/19/19] Levothyroxine TAB* [Synthroid TAB*] 125 mcg PO DAILY 01/20/15 [History Confirmed 09/19/19] Montelukast Sodium TAB* [Singulair TAB*] 10 mg PO QPM 01/20/15 [History Confirmed 09/19/19] Albuterol HFA INHALER* [Ventolin HFA Inhaler*] 2 puff INH Q4H PRN 11/09/17 [ History Confirmed 09/19/19] Allopurinol TAB* [Zyloprim 100 MG TAB*] 300 mg PO DAILY 11/09/17 [History Confirmed 09/19/19] Atorvastatin* [Lipitor*] 20 mg PO QPM 11/09/17 [History Confirmed 09/19/19] Furosemide TAB* [Lasix TAB*] 80 mg PO BID 11/09/17 [History Confirmed 09/19/19] Nystatin CREAM* 1 applic TOPICAL TID PRN 11/09/17 [History Confirmed 09/19/19] Pantoprazole TAB * [Protonix TAB (NF)] 40 mg PO QPM 11/09/17 [History Confirmed 09/19/19] Potassium Chlor TAB* [Klor Con ER TAB*] 10 meq PO DAILY 11/09/17 [History Confirmed 09/19/19] Spironolactone TAB* [Aldactone TAB*] 12.5 mg PO DAILY 11/09/17 [History Confirmed 09/19/19] Tiotropium CAPSULE (NF) [Spiriva CAP.INH*] 2 cap.inh INH DAILY 11/09/17 [ History Confirmed 09/19/19] Acetaminophen [Pain Relief] 500 mg PO DAILY 09/18/19 [History Confirmed 09/19/19 ] Fluticas/Salmet 230/21 HFA(NF) [Advair HFA 23O/21 (NF)] 2 puff INH BID 09/18/19 [History Confirmed 09/19/19] Ipratropium/Albuterol Sulfate [Iprat-Albut 0.5-3(2.5) mg/3 ml] 3 ml INH BID [History Confirmed 09/19/19] Iron Transfusion 1 dose IV SEE INSTRUCTIONS 09/18/19 [History Confirmed 09/19/19 ] Magnesium Oxide [Magnesium] 400 mg PO DAILY 09/18/19 [History Confirmed 09/19/19 ] PMH/Surg Hx/FS Hx/Imm Hx Previously Healthy: Yes Endocrine History: Thyroid Disease Cardiovascular History: Cardiac Disease Respiratory History: COPD, Asthma - Surgical History Surgical History: Yes Surgery Procedure, Year, and Place: stents. T&A. chad. appy. L carotid [place] coil. Kidney stone blasted. 03/2015 cardiac bypass. mitral valve repair - Family History Known Family History: Positive: Cardiac Disease, Hypertension - Social History Occupation: Retired Lives: With Family Alcohol Use: Occasionally Substance Use Type: None Smoking Status (MU): Former Smoker Type: Cigarettes When Did the Patient Quit Smoking/Using Tobacco: 1970 - Immunization History Most Recent Influenza Vaccination: 2013 Most Recent Tetanus Shot: 2011 Most Recent Pneumonia Vaccination: current Vaccination Up to Date: Yes Review of Systems All Other Systems Reviewed And Are Negative: Yes Constitutional: Positive: Negative Skin: Positive: Bruising, Other - skin tear, Eyes: Positive: Negative ENT: Positive: Negative Respiratory: Positive: Negative Cardiovascular: Positive: Negative Gastrointestinal: Positive: Negative Genitourinary: Positive: Negative Motor: Positive: Negative Neurovascular: Positive: Negative Musculoskeletal: Positive: Edema Neurological/Mental Status: Positive: Negative Psychological: Positive: Negative Is Patient Immunocompromised?: No Physical Exam Triage Information Reviewed: Yes Appearance: Well-Appearing Vital Signs: Initial Vital Signs Temp 97.1 F 09/19/19 10:30 Pulse 86 09/19/19 10:30 Resp 20 09/19/19 10:30 BP 107/61 09/19/19 10:30 Pulse Ox 99 09/19/19 10:30 Vital Signs Reviewed: Yes Eye Exam: Normal ENT: Positive: Hearing grossly normal Dental Exam: Normal Neck exam: Normal Respiratory: Positive: No respiratory distress Musculoskeletal: Positive: Edema @ - mild swelling left distal posterior forearm Neurological Exam: Normal Psychological Exam: Normal Skin: Positive: Significant Lesion(s) - skin tear ~ 3cm X 4 cm Course/Dx - Differential Diagnoses - Skin Complaint Differential Diagnoses: Other - skin tear - Diagnoses Provider Diagnosis: Skin tear of left forearm without complication Discharge ED - Sign-Out/Discharge Documenting (check all that apply): Patient Departure All imaging exams completed and their final reports reviewed: No Studies - Discharge Plan Condition: Stable Disposition: HOME Patient Education Materials: Skin Tear (ED) Referrals: Lorraine Brown MD [Primary Care Provider] - If Needed Additional Instructions: You may return to clinic for wound check and dressing change on 09/22/19 at or go to your PCP. - Billing Disposition and Condition Condition: STABLE Disposition: Home
== END 2019-09-19 11:31 | disposition home or self-care (01) ==
LOC: UCCORT 10:17
DX: S51.812A Laceration without foreign body of left forearm, initial encounter (principal); E07.9 Disorder of thyroid, unspecified; J44.9 Chronic obstructive pulmonary disease, unspecified; X58.XXXA Exposure to other specified factors, initial encounter; Y92.9 Unspecified place or not applicable; Z88.0 Allergy status to penicillin; Z88.6 Allergy status to analgesic agent; Z91.09 Other allergy status, other than to drugs and biological substances; Z79.82 Long term (current) use of aspirin; Z79.890 Hormone replacement therapy; Z79.52 Long term (current) use of systemic steroids; Z87.891 Personal history of nicotine dependence
CPT/HCPCS: 99212; G0463

== ENCOUNTER 2019-09-22 10:21 | Emergency (ER) | payer MEDICARE, BC ==
[2019-09-22 11:22] VITALS: BP 141/48
--- NOTE | 2019-09-22 11:23 | UC ---
HPI Wound/Suture Re-check - HPI Summary HPI Summary: 69-year-old female who was seen here on September 18 for a skin tear to her left forearm. She is here for wound recheck. She has not changed the dressing since the day of the injury. Immunizations are up-to-date. The injury occurred when she hit her arm on her front loading a washer where the rubber seal had come loose. - History Of Current Complaint Chief Complaint: UCLaceration Stated Complaint: LEFT ARM LACERATION Time Seen by Provider: 09/22/19 11:22 Hx Obtained From: Patient Onset/Duration: Sudden Onset Severity: Mild Pain Intensity: 4 - Allergies/Home Medications Allergies/Adverse Reactions: Allergies Allergy/AdvReac Type Severity Reaction Status Date / Time Penicillins Allergy Hives Verified 09/22/19 11:18 piroxicam [From Feldene] Allergy Blisters Verified 09/22/19 11:18 environmental Allergy Difficulty Uncoded 09/22/19 11:18 Breathing Home Medications: Home Medications Aspirin [Aspirin Adult Low Dose] 81 mg PO QPM 01/20/15 [History Confirmed ] Azelastine 0.15% NASAL(NF) [Astepro 0.15% NASAL (NF)] 1 spray NASAL BID [History Confirmed 09/22/19] Irbesartan (NF) [Avapro (NF)] 75 mg PO QPM 01/20/15 [History Confirmed 09/22/19] LevoCETirizine TAB (NF) [Xyzal TAB (NF)] 5 mg PO QPM 01/20/15 [History Confirmed 09/22/19] Levothyroxine TAB* [Synthroid TAB*] 125 mcg PO DAILY 01/20/15 [History Confirmed 09/22/19] Montelukast Sodium TAB* [Singulair TAB*] 10 mg PO QPM 01/20/15 [History Confirmed 09/22/19] Albuterol HFA INHALER* [Ventolin HFA Inhaler*] 2 puff INH Q4H PRN 11/09/17 [ History Confirmed 09/22/19] Allopurinol TAB* [Zyloprim 100 MG TAB*] 300 mg PO DAILY 11/09/17 [History Confirmed 09/22/19] Atorvastatin* [Lipitor*] 20 mg PO QPM 11/09/17 [History Confirmed 09/22/19] Furosemide TAB* [Lasix TAB*] 80 mg PO BID 11/09/17 [History Confirmed 09/22/19] Nystatin CREAM* 1 applic TOPICAL TID PRN 11/09/17 [History Confirmed 09/22/19] Pantoprazole TAB * [Protonix TAB (NF)] 40 mg PO QPM 11/09/17 [History Confirmed 09/22/19] Potassium Chlor TAB* [Klor Con ER TAB*] 10 meq PO DAILY 11/09/17 [History Confirmed 09/22/19] Spironolactone TAB* [Aldactone TAB*] 12.5 mg PO DAILY 11/09/17 [History Confirmed 09/22/19] Tiotropium CAPSULE (NF) [Spiriva CAP.INH*] 2 cap.inh INH DAILY 11/09/17 [ History Confirmed 09/22/19] Acetaminophen [Pain Relief] 500 mg PO DAILY 09/18/19 [History Confirmed 09/22/19 ] Fluticas/Salmet 230/21 HFA(NF) [Advair HFA 23O/21 (NF)] 2 puff INH BID 09/18/19 [History Confirmed 09/22/19] Ipratropium/Albuterol Sulfate [Iprat-Albut 0.5-3(2.5) mg/3 ml] 3 ml INH BID [History Confirmed 09/22/19] Iron Transfusion 1 dose IV SEE INSTRUCTIONS 09/18/19 [History Confirmed 09/22/19 ] Magnesium Oxide [Magnesium] 400 mg PO DAILY 09/18/19 [History Confirmed 09/22/19 ] PMH/Surg Hx/FS Hx/Imm Hx Previously Healthy: Yes Cardiovascular History: Hypertension Respiratory History: COPD, Asthma - Surgical History Surgical History: Yes Surgery Procedure, Year, and Place: stents. T&A. chad. appy. L carotid [place] coil. Kidney stone blasted. 03/2015 cardiac bypass. mitral valve repair - Family History Known Family History: Positive: Cardiac Disease, Hypertension - Social History Occupation: Retired Alcohol Use: Occasionally Substance Use Type: None Smoking Status (MU): Former Smoker Type: Cigarettes When Did the Patient Quit Smoking/Using Tobacco: 1970 - Immunization History Most Recent Influenza Vaccination: 2013 Most Recent Tetanus Shot: 2011 Most Recent Pneumonia Vaccination: current Vaccination Up to Date: Yes Review of Systems All Other Systems Reviewed And Are Negative: Yes Skin: Positive: Other - Skin tear to left forearm on September 18. The patient has not changed the dressing. She has no complaints. Is Patient Immunocompromised?: No Physical Exam Triage Information Reviewed: Yes Appearance: Well-Appearing, No Pain Distress, Well-Nourished Vital Signs: Initial Vital Signs Temp 97.6 F 09/22/19 11:18 Pulse 90 09/22/19 11:18 Resp 22 09/22/19 11:18 BP 141/48 09/22/19 11:18 Pulse Ox 99 09/22/19 11:18 Vital Signs Reviewed: Yes Musculoskeletal Exam: Normal Neurological Exam: Normal Psychological Exam: Normal Skin: Positive: Other - The patient has an approximately 3.0 cm x 1.0 cm skin tear to left forearm which appears to be healing well. It is surrounded by some significant bruising which is nontender on palpation. There is no evidence of infection. Course/Dx - Course Course Of Treatment: The dressing was changed here. The patient can continue to apply a bacitracin dressing with Coban and and not to use tape on her skin. She is to follow-up with her primary care provider if she has any concerns over the next few days while it's healing - Diagnosis Provider Diagnosis: Encounter for wound re-check Discharge ED - Sign-Out/Discharge Documenting (check all that apply): Patient Departure All imaging exams completed and their final reports reviewed: No Studies - Discharge Plan Condition: Good Disposition: HOME Referrals: Lorraine Brown MD [Primary Care Provider] - Additional Instructions: Change the dressing daily. Apply bacitracin, gauze and the Coban. Follow-up with your primary care provider if any worsening symptoms and especially if the area becomes hot, red, tender or pus drainage with red streaks up your arm. - Billing Disposition and Condition Condition: GOOD Disposition: Home
== END 2019-09-22 12:00 | disposition home or self-care (01) ==
LOC: UCCORT 10:21
DX: S51.812D Laceration without foreign body of left forearm, subsequent encounter (principal); I10 Essential (primary) hypertension; J44.9 Chronic obstructive pulmonary disease, unspecified; Z88.0 Allergy status to penicillin; Z91.09 Other allergy status, other than to drugs and biological substances; Z88.6 Allergy status to analgesic agent; Z79.82 Long term (current) use of aspirin; W22.8XXD Striking against or struck by other objects, subsequent encounter; Z79.899 Other long term (current) drug therapy; Z87.891 Personal history of nicotine dependence
CPT/HCPCS: 99212; G0463